=== PATIENT | female | born 1985 | race Caucasian/White ===

== ENCOUNTER 2017-01-20 17:17 | Inpatient (IN) | payer OTHER ==
--- NOTE | 2017-01-20 17:48 | HP ---
COWS - Scale Resting Pulse: 2= [place] 101-120 Sweatin=Flushed/Facial Moisture Restless Observation: 3= Extraneous Movement Pupil Size: 2= Moderately Dilated Bone or Joint Aches: 2= Severe Diffuse Aches Runny Nose/ Eye Tearin= Runny Nose/Eyes GI Upset > 30mins: 3= Vomiting/Diarrhea Tremor Observation: 2= Slight Tremor Visible Yawning Observation: 2= >3x During Session Anxiety or Irritability: 2=Irritable/Anxious Goose Flesh Skin: 0=Smooth Skin COWS Score: 22 CIWA Score - CIWA Score Nausea/Vomitin Muscle Tremors: 3 Anxiety: 3 Agitation: 3 Paroxysmal Sweats: 2 Orientation: 0-Oriented Tacttile Disturbances: 2-Mild Itch/Numbness/Burn Auditory Disturbances: 2-Mild Harshness/Frighten Visual Disturbances: 2-Mild Sensitivity Headache: 2-Mild CIWA-Ar Total Score: 22 Admission ROS S - HPI Chief Complaint: i need help to stop using heroin,lcohol,xanax,cocaine Allergies/Adverse Reactions: Allergies Allergy/AdvReac Type Severity Reaction Status Date / Time Fish Containing Products Allergy Intermediate Vomiting Verified 11/11/16 11:40 milk Allergy Intermediate Vomiting Verified 11/11/16 11:40 venom-honey bee Allergy Difficulty Verified 11/11/16 11:40 [bee venom (honey bee)] Breathing chlordiazepoxide HCl AdvReac Severe Vomiting Verified 11/11/16 11:40 [From Librium] History of Present Illness: this 31 years old female with heroin,cocaine,xanax and alcohol dependence, withdrawal symptom,last detox 11/03 [facility] seizure cva with right upper extremity weakness nicotine dependence Exam Limitations: No Limitations - Ebola screening Have you traveled outside of the country in the last 21 days: No Have you had contact with anyone from an Ebola affected area: No Do you have a fever: No - Review of Systems Constitutional: Chills, Diaphoresis, Loss of Appetite, Malaise, Night Sweats, Changes in sleep, Weakness EENT: reports: Tearing, Nose Congestion Respiratory: reports: No Symptoms reported Cardiac: reports: Palpitations GI: reports: Diarrhea, Nausea, Vomiting, Abdominal cramping : reports: No Symptoms Reported Musculoskeletal: reports: Joint Pain, Muscle Pain, Joint Stiffness Neuro: reports: Headache, Tremors Endocrine: reports: No Symptoms Reported Hematology: reports: No Symptoms Reported Psychiatric: reports: other (insomnia) Patient History - Patient Medical History Hx Anemia: No Hx Asthma: No Hx Chronic Obstructive Pulmonary Disease (COPD): No Hx Cancer: No Hx Cardiac Disorders: Yes (CARDIAC SURGERY TO FIX A MURMUR! at age of 25 years repair the valve [facility]) Hx Congestive Heart Failure: No Hx Hypertension: No Hx Hypercholesterolemia: No Hx Pacemaker: No HX Cerebrovascular Accident: Yes (STROKE X 3; RIGHT-SIDED WEAKNESS) Hx Seizures: Yes (none x2 years) Hx Dementia: No Hx Diabetes: No Hx Gastrointestinal Disorders: No Hx Liver Disease: Yes Hx Genitourinary Disorders: No Hx Sexually Transmitted Disorders: No Hx Renal Disease (ESRD): No Hx Thyroid Disease: No Hx Human Immunodeficiency Virus (HIV): No (last 2016 negative) Hx Hepatitis C: Yes (not treated) Hx Depression: No Hx Suicide Attempt: No Hx Bipolar Disorder: No Hx Schizophrenia: No Other Medical History: no suicidal,no homicidal - Patient Surgical History Past Surgical History: Yes Hx Neurologic Surgery: No Hx Cataract Extraction: No Hx Cardiac Surgery: Yes (SURGERY FOR PERICARDITIS IN 07/2013) Hx Lung Surgery: No Hx Breast Surgery: No Hx Breast Biopsy: No Hx Abdominal Surgery: Yes (EXP. LAPOROTOMY IN 07/2013 AT [facility] Hx Appendectomy: No Hx Cholecystectomy: No Hx Genitourinary Surgery: No Hx Section: No Hx Orthopedic Surgery: No Anesthesia Reaction: No - PPD History Previous Implant?: Yes Documented Results: Negative w/proof Date: 07/08/16 Results: 0 mm PPD to be Administered?: No - Reproductive History Patient is a Female of Child Bearing Age (11 -55 yrs old): Yes Last Menstrual Period: 01/15/17 Patient : No - Smoking Cessation Smoking history: Current every day smoker Have you smoked in the past 12 months: Yes Aproximately how many cigarettes per day: 6 Cigars Per Day: 0 Hx Chewing Tobacco Use: No Initiated information on smoking cessation: Yes 'Breaking Loose' booklet given: 01/20/17 - Substance & Tx. History Hx Alcohol Use: Yes Hx Substance Use: Yes Substance Use Type: Alcohol, Cocaine, Heroin, Tranquilizers Hx Substance Use Treatment: Yes ([facility] 11/03) - Substances Abused Heroin Route: Inhalation Frequency: Daily Amount used: 10 bags Age of first use: 17 Date of Last Use: 01/20/17 Alcohol Route: Oral Frequency: Daily Amount used: 3pints of vodka Age of first use: 9 Date of Last Use: 01/20/17 Alprazolam (Xanax) Route: Oral Frequency: Daily Amount used: 10 to 20 mgs Age of first use: 17 Date of Last Use: 01/20/17 Cocaine Route: Inhalation Frequency: 1-3 times last 30 days Amount used: 80$ Age of first use: 31 Date of Last Use: 01/18/17 Family Disease History - Family Disease History Family Disease History: [place]: Mother (Alcoholic; uterine/?cervical; dec), Other: Mother, Sister (LIVER DISEASE@16--) Admission Physical Exam [facility] Physical General Appearance: Yes: Moderate Distress, Tremorous, Irritable, Sweating, Anxious HEENTM: Yes: Nasal Congestion, Rhinorrhea Respiratory: Yes: Lungs Clear Neck: Yes: Within Normal Limits Breast: Yes: Breast Exam Deferred Cardiology: Yes: Tachycardia Abdominal: Yes: Within Normal Limits, Normal Bowel Sounds, Non Tender, Flat, Soft Genitourinary: Yes: Within Normal Limits Back: Yes: Muscle Spasm Musculoskeletal: Yes: Back pain, Muscle Pain Extremities: Yes: Tremors, Other (right upper extremity weakness) Neurological: Yes: advocacy director II-XII NML intact, Fully Oriented, Alert, Motor Strength 5/5 Integumentary: Yes: Dry Lymphatic: Yes: Within Normal Limits - Diagnostic (1) Alcohol dependence with uncomplicated withdrawal Current Visit: No Status: Chronic (2) Anxiety Current Visit: No Status: Chronic (3) Hemiparesis affecting right side as late effect of cerebrovascular accident Current Visit: No Status: Chronic (4) Hepatitis C Current Visit: No Status: Chronic (5) Insomnia Current Visit: No Status: Chronic (6) Nicotine dependence Current Visit: No Status: Chronic Qualifiers: Nicotine product type: cigarettes Substance use status: uncomplicated Qualified Code(s): F17.210 - Nicotine dependence, cigarettes, uncomplicated (7) Opioid dependence with withdrawal Current Visit: No Status: Chronic (8) Seizure disorder Current Visit: No Status: Suspected (9) Uncomplicated sedative, hypnotic or anxiolytic withdrawal Current Visit: Yes Status: Acute (10) Walker as ambulation aid Current Visit: Yes Status: Acute Cleared for Admission [facility] - Detox or Rehab [facility] Level of Care: Medically Managed Detox Regimen/Protocol: Methadone/Valium S Breath Alcohol Content Breath Alcohol Content: 0.010
[2017-01-20 17:49] VITALS: BMI 27.1
[2017-01-20] MEDS ORDERED: guaiFENesin/D-METHORPHAN HB 10 ML UNIT-DOSE CUPS PO PRN (18:52)
[2017-01-20] MEDS ORDERED: ACETAMINOPHEN 325 MG TABLET (FP) PO PRN (18:52)
[2017-01-20] MEDS ORDERED: MAGNESIUM CITRATE 300 ML BOTTLE PO PRN (18:52)
[2017-01-20] MEDS ORDERED: IBUPROFEN 400 MG TABLET (FP) PO PRN (18:52)
[2017-01-20] MEDS ORDERED: MAGNESIUM HYDROX 2400MG/30ML ORAL SUSPENSION 30 ML CUP PO PRN (18:52)
[2017-01-20] MEDS ORDERED: MAG HYDROX/AL HYDROX/SIMETH 30 ML UNIT-DOSE CUP PO PRN (18:52)
[2017-01-20] MEDS ORDERED: LOPERAMIDE HCL 2 MG CAPSULE PO PRN (18:52)
[2017-01-20] MEDS ORDERED: MENTHOL/PHENOL 1 EACH UD MM PRN (18:52)
[2017-01-20] MEDS ORDERED: diazePAM 5 MG TABLET PO ONE (18:52)
[2017-01-20] MEDS ORDERED: P-EPHED 60MG/TRIPROLIDI 2.5MG TABLET PO PRN (18:52)
[2017-01-20] MEDS ORDERED: METHADONE HCL 10 MG TABLET (FOR DETOX USE ONLY) PO ONE ×2 (18:52→23:00)
[2017-01-20] MEDS: NICOTINE 21 MG/24 HOURS TOPICAL PATCH TD SCH (20:02)
[2017-01-20] MEDS: THIAMINE HCL 100 MG TABLET (FP) PO SCH (22:41)
[2017-01-20] MEDS: levETIRAcetam 500 MG TABLET (FP) PO SCH (22:41)
[2017-01-20] MEDS: diphenhydrAMINE HCL 50 MG CAPSULE PO PRN (22:41)
[2017-01-20] MEDS: diazePAM 5 MG TABLET PO SCH (22:41)
[2017-01-21 00:17] LABS: URINE APPEARANCE SLCLOUDY; URINE BILIRUBIN NEGATIVE (NEGATIVE); URINE BLOOD NEGATIVE (NEGATIVE); URINE COLOR YELLOW; URINE GLUCOSE (UA) NEGATIVE (NEGATIVE); URINE KETONE 1+ (NEGATIVE); URINE LEUK ESTERASE NEGATIVE (NEGATIVE); URINE NITRITE NEGATIVE (NEGATIVE); URINE UROBILINOGEN NEGATIVE E.U./dl (0.2-1.0)
[2017-01-21 00:33] LABS: URINE PROTEIN 1+ (NEGATIVE)
[2017-01-21 01:44] LABS: URINE BACTERIA MANY /hpf (NONE SEEN); URINE HYALINE CAST 153 /lpf; URINE MUCUS MANY; URINE WBC 7 /hpf (3-5)
[2017-01-21] MEDS: diazePAM 5 MG TABLET PO PRN ×4 (02:01→16:55)
[2017-01-21] MEDS: diphenhydrAMINE HCL 50 MG CAPSULE PO PRN ×2 (02:02→22:30)
[2017-01-21] MEDS: diazePAM 5 MG TABLET PO SCH ×3 (05:44→22:30)
[2017-01-21] MEDS ORDERED: METHADONE HCL 10 MG TABLET (FOR DETOX USE ONLY) PO SCH (10:00)
[2017-01-21 10:19] LABS: MCH 29.6 pg (25.7-33.7); MCHC 33.6 g/dl (32.0-36.0); MEAN PLT VOLUME 8.3 fl (7.5-11.1); PLATELET COUNT 225 K/MM3 (134-434); RDW 14.5 % (11.6-15.6); WHITE BLOOD COUNT 6.2 K/mm3 (4.0-10.0)
[2017-01-21] MEDS: ASPIRIN COATED 81 MG TABLET.EC PO SCH (10:24)
[2017-01-21] MEDS: levETIRAcetam 500 MG TABLET (FP) PO SCH ×2 (10:24→22:30)
[2017-01-21] MEDS: PRENATAL VITAMINS W/ FOLIC ACID TABLET (FP) PO SCH (10:24)
[2017-01-21] MEDS: NICOTINE 21 MG/24 HOURS TOPICAL PATCH TD SCH (10:24)
[2017-01-21 10:48] LABS: ALBUMIN 3.6 g/dl (3.4-5.0); ALK PHOS 98 U/L (45-117); ANION GAP 12 (8-16); BILIRUBIN,TOTAL 0.5 mg/dL (0.2-1.0); CO2 28 mmol/L (21-32); CREATININE 0.9 mg/dL (0.55-1.02); GLUCOSE,RANDOM 94 mg/dL (74-106); SGOT/AST 15 U/L (15-37); SGPT/ALT 19 U/L (12-78); TOT PROT 6.8 g/dl (6.4-8.2)
--- NOTE | 2017-01-21 13:25 | PN ---
S CIWA - CIWA Score Nausea/Vomitin Muscle Tremors: 3 Anxiety: 3 Agitation: 3 Paroxysmal Sweats: 2 Orientation: 0-Oriented Tacttile Disturbances: 1-Very Mild Itch/Numbness Auditory Disturbances: 1-Very Mild Visual Disturbances: 1-Very Mild Sensitivity Headache: 2-Mild CIWA-Ar Total Score: 19 [facility] COWS - Scale Resting Pulse: 2= [place] 101-120 Sweatin=Flushed/Facial Moisture Restless Observation: 3= Extraneous Movement Pupil Size: 1= Pupils >than Normal Bone or Joint Aches: 2= Severe Diffuse Aches Runny Nose/ Eye Tearin= Runny Nose/Eyes GI Upset > 30mins: 2= Nausea/Diarrhea Tremor Observation of Outstretched Hands: 2= Slight Tremor Visible Yawning Observation: 1= 1-2x During Session Anxiety or Irritability: 2=Irritable/Anxious Goose Flesh Skin: 0=Smooth Skin COWS Score: 19 S Progress Note (SOAP) Subjective: ALERT,IRRITABLE,ANXIUOS,INTERRUPTED SLEEP,PAIN IN THE BODY AND BACK Objective: 01/21/17 13:23 Vital Signs Temperature 97.5 F L 01/21/17 09:56 Pulse Rate 103 H 01/21/17 09:56 Respiratory Rate 18 01/21/17 09:56 Blood Pressure 123/73 01/21/17 09:56 O2 Sat by Pulse Oximetry (%) EKG NSR NO CHEST PAIN,NO SOB,NO DIZZINESS Laboratory Last Values WBC 6.2 K/mm3 (4.0-10.0) 01/21/17 08:00 RBC 4.44 M/mm3 (3.60-5.2) 01/21/17 08:00 Hgb 13.1 GM/dL (10.7-15.3) 01/21/17 08:00 Hct 39.0 % (32.4-45.2) 01/21/17 08:00 MCV 88.0 fl (80-96) 01/21/17 08:00 MCHC 33.6 g/dl (32.0-36.0) 01/21/17 08:00 RDW 14.5 % (11.6-15.6) 01/21/17 08:00 Plt Count 225 K/MM3 (134-434) D 01/21/17 08:00 MPV 8.3 fl (7.5-11.1) 01/21/17 08:00 Sodium 138 mmol/L (136-145) 01/21/17 08:00 Potassium 3.7 mmol/L (3.5-5.1) 01/21/17 08:00 Chloride 98 mmol/L (98-107) 01/21/17 08:00 Carbon Dioxide 28 mmol/L (21-32) 01/21/17 08:00 Anion Gap 12 (8-16) 01/21/17 08:00 BUN 10 mg/dL (7-18) D 01/21/17 08:00 Creatinine 0.9 mg/dL (0.55-1.02) D 01/21/17 08:00 Creat Clearance w eGFR > 60 (>60) 01/21/17 08:00 Random Glucose 94 mg/dL (74-106) D 01/21/17 08:00 Calcium 9.0 mg/dL (8.5-10.1) 01/21/17 08:00 Total Bilirubin 0.5 mg/dL (0.2-1.0) D 01/21/17 08:00 AST 15 U/L (15-37) 01/21/17 08:00 ALT 19 U/L (12-78) 01/21/17 08:00 Alkaline Phosphatase 98 U/L (45-117) D 01/21/17 08:00 Total Protein 6.8 g/dl (6.4-8.2) 01/21/17 08:00 Albumin 3.6 g/dl (3.4-5.0) 01/21/17 08:00 Urine Color Yellow 01/20/17 23:58 Urine Appearance Slcloudy 01/20/17 23:58 Urine pH 5.0 (5.0-8.0) 01/20/17 23:58 Ur Specific [place] 1.030 (1.001-1.035) 01/20/17 23:58 Urine Protein 1+ (NEGATIVE) H 01/20/17 23:58 Urine Glucose (UA) Negative (NEGATIVE) 01/20/17 23:58 Urine Ketones 1+ (NEGATIVE) H 01/20/17 23:58 Urine Blood Negative (NEGATIVE) 01/20/17 23:58 Urine Nitrite Negative (NEGATIVE) 01/20/17 23:58 Urine Bilirubin Negative (NEGATIVE) 01/20/17 23:58 Urine Urobilinogen Negative E.U./dl (0.2-1.0) 01/20/17 23:58 Ur Leukocyte Esterase Negative (NEGATIVE) 01/20/17 23:58 Urine RBC None /hpf (0-3) 01/20/17 23:58 Urine WBC 7 /hpf (3-5) 01/20/17 23:58 Ur Epithelial Cells Few /hpf (FEW) 01/20/17 23:58 Urine Bacteria Many /hpf (NONE SEEN) 01/20/17 23:58 Hyaline Casts 153 /lpf 01/20/17 23:58 Urine Mucus Many 01/20/17 23:58 RPR Titer Nonreactive (NONREACTIVE) 01/21/17 08:00 Assessment: 01/21/17 13:25 WITHDRAWAL SYMPTOM Plan: CONTINUE DETOX
[2017-01-21] MEDS: THIAMINE HCL 100 MG TABLET (FP) PO SCH (22:30)
[2017-01-22] MEDS: diazePAM 5 MG TABLET PO PRN ×4 (01:45→16:54)
--- NOTE | 2017-01-22 10:09 | PN ---
[facility] CIWA - CIWA Score Nausea/Vomitin Muscle Tremors: 3 Anxiety: 3 Agitation: 3 Paroxysmal Sweats: 3 Orientation: 0-Oriented Tacttile Disturbances: 2-Mild Itch/Numbness/Burn Auditory Disturbances: 0-None Visual Disturbances: 0-None Headache: 0-None Present CIWA-Ar Total Score: 17 S COWS - Scale Resting Pulse: 2= [place] 101-120 Sweatin=Flushed/Facial Moisture Restless Observation: 1= Difficult to Sit Still Pupil Size: 1= Pupils >than Normal Bone or Joint Aches: 2= Severe Diffuse Aches Runny Nose/ Eye Tearin= Nasal Congestion GI Upset > 30mins: 2= Nausea/Diarrhea Tremor Observation of Outstretched Hands: 2= Slight Tremor Visible Yawning Observation: 0= None Anxiety or Irritability: 0= None Goose Flesh Skin: 0=Smooth Skin COWS Score: 13 [facility] Progress Note (SOAP) Subjective: interrupted sleep, sweats, shakes, nausea, Objective: 01/22/17 10:26 Vital Signs Temperature 97.2 F L 01/22/17 10:17 Pulse Rate 103 H 01/22/17 10:17 Respiratory Rate 18 01/22/17 10:17 Blood Pressure 115/81 01/22/17 10:17 O2 Sat by Pulse Oximetry (%) Laboratory Tests 01/20/17 01/21/17 01/21/17 23:58 08:00 08:00 WBC 6.2 RBC 4.44 Hgb 13.1 Hct 39.0 MCV 88.0 MCHC 33.6 RDW 14.5 Plt Count 225 D MPV 8.3 Sodium 138 Potassium 3.7 Chloride 98 Carbon Dioxide 28 Anion Gap 12 BUN 10 D Creatinine 0.9 D Creat Clearance w eGFR > 60 Random Glucose 94 D Calcium 9.0 Total Bilirubin 0.5 D AST 15 ALT 19 Alkaline Phosphatase 98 D Total Protein 6.8 Albumin 3.6 Urine Color Yellow Urine Appearance Slcloudy Urine pH 5.0 Ur Specific [place] 1.030 Urine Protein 1+ H Urine Glucose (UA) Negative Urine Ketones 1+ H Urine Blood Negative Urine Nitrite Negative Urine Bilirubin Negative Urine Urobilinogen Negative Ur Leukocyte Esterase Negative Urine RBC None Urine WBC 7 Ur Epithelial Cells Few Urine Bacteria Many Hyaline Casts 153 Urine Mucus Many RPR Titer 01/21/17 08:00 WBC RBC Hgb Hct MCV MCHC RDW Plt Count MPV Sodium Potassium Chloride Carbon Dioxide Anion Gap BUN Creatinine Creat Clearance w eGFR Random Glucose Calcium Total Bilirubin AST ALT Alkaline Phosphatase Total Protein Albumin Urine Color Urine Appearance Urine pH Ur Specific [place] Urine Protein Urine Glucose (UA) Urine Ketones Urine Blood Urine Nitrite Urine Bilirubin Urine Urobilinogen Ur Leukocyte Esterase Urine RBC Urine WBC Ur Epithelial Cells Urine Bacteria Hyaline Casts Urine Mucus RPR Titer Nonreactive pt aox3 in nad, lying in bed has a wheelchair for ambulation Assessment: 01/22/17 10:27 withdrawal sx; s h/o cva in past Plan: cont. detox increase fluids motrin prn
[2017-01-22] MEDS: ASPIRIN COATED 81 MG TABLET.EC PO SCH (10:44)
[2017-01-22] MEDS: METHADONE HCL 5 MG TABLET (FOR DETOX USE ONLY) PO SCH (10:44)
[2017-01-22] MEDS: PRENATAL VITAMINS W/ FOLIC ACID TABLET (FP) PO SCH (10:44)
[2017-01-22] MEDS: levETIRAcetam 500 MG TABLET (FP) PO SCH ×2 (10:44→22:13)
[2017-01-22] MEDS: diazePAM 5 MG TABLET PO SCH ×2 (10:44→22:11)
[2017-01-22] MEDS: NICOTINE 21 MG/24 HOURS TOPICAL PATCH TD SCH (10:45)
--- NOTE | 2017-01-22 11:31 | EKG ---
Test Reason : Blood Pressure : / mmHG Vent. Rate : 094 BPM Atrial Rate : 094 BPM P-R Int : 138 ms QRS Dur : 080 ms QT Int : 346 ms P-R-T Axes : 020 037 038 degrees QTc Int : 432 ms BASELINE ARTIFACT NORMAL SINUS RHYTHM INFERIOR INFARCT (CITED ON OR BEFORE 02-FEB-2014) ABNORMAL ECG WHEN COMPARED WITH ECG OF 02-FEB-2014 18:10, POOR DATA QUALITY IN CURRENT ECG PRECLUDES SERIAL COMPARISON Confirmed by GINA LUIS MD ([id number]) on 01/22/2017 11:30:58 AM Referred By: Confirmed By:GINA LUIS MD
--- NOTE | 2017-01-22 12:43 | CONSULT ---
[facility] Psychiatric Consult - Data Date of interview: 01/22/17 Admission source: [facility] Identifying data: This is 31 years old female with no psychiatric hospitalization historyu, umbulating with walker after CVA/STROKE ON ABOUIT 6 YEARS AGO, Intoxicated with: Opioids, Alcohol, nXanax and Nicotine Substance Abuse History: Smoking history: Current every day smoker. Have you smoked in the past 12 months: Yes. Aproximately how many cigarettes per day: 6. Cigars Per Day: 0. Hx Chewing Tobacco Use: No. Initiated information on smoking cessation: Yes. 'Breaking Loose' booklet given: 01/20/17. - Substance & Tx. History. Hx Alcohol Use: Yes. Hx Substance Use: Yes. Substance Use Type : Alcohol, Cocaine, Heroin, Tranquilizers. Hx Substance Use Treatment: Yes ( [facility] 11/03). - Substances Abused. Heroin. Route: Inhalation. Frequency: Daily. Amount used: 10 bags. Age of first use: 17. Date of Last Use: . Alcohol. Route: Oral. Frequency: Daily. Amount used: 3pints of vodka. Age of first use: 9. Date of Last Use: 01/20/17. Alprazolam (Xanax ). Route: Oral. Frequency: Daily. Amount used: 10 to 20 mgs. Age of first use: 17. Date of Last Use: 01/20/17. Cocaine. Route: Inhalation. Frequency: 1-3 times last 30 days. Amount used: 80$. Age of first use: 31. Date of Last Use: 01/18/17 Medical History: Stroke complications, HepC+, Seizure history Psychiatric History: Patient rteprots insomnia and depression, reports taking prior to admission: Seroquel 150mg pop qhs Physical/Sexual Abuse/Trauma History: Denies Additional Comment: Seroquel 150mg pop qhs Mental Status Exam - Mental Status Exam Alert and Oriented to: Person Cognitive Function: Fair Patient Appearance: Unkempt Mood: Sad Affect: Flat Patient Behavior: Sedated Speech Pattern: Delayed Voice Loudness: Mildly Soft/Quiet Thought Process: Goal Oriented Thought Disorder: Being Controlled Hallucinations: Denies Suicidal Ideation: Denies Homicidal Ideation: Denies Insight/Judgement: Fair Sleep: Difficulty falling asleep Appetite: Fair Muscle strength/Tone: Mild Hypertonicity Gait/Station: Spastic Additional Comments: Seroquel 150mg pop qhs Psychiatric Findings - Problem List ([place] 1, 2,3) (1) Uncomplicated sedative, hypnotic or anxiolytic withdrawal Current Visit: Yes Status: Acute (2) Walker as ambulation aid Current Visit: Yes Status: Acute (3) Substance induced mood disorder Current Visit: No Status: Acute (4) Alcohol dependence with uncomplicated withdrawal Current Visit: No Status: Chronic (5) Benzodiazepine dependence Current Visit: No Status: Chronic (6) Hemiparesis affecting right side as late effect of cerebrovascular accident Current Visit: No Status: Chronic (7) Nicotine dependence Current Visit: No Status: Chronic Qualifiers: Nicotine product type: cigarettes Substance use status: uncomplicated Qualified Code(s): F17.210 - Nicotine dependence, cigarettes, uncomplicated (8) Opioid dependence with withdrawal Current Visit: No Status: Chronic (9) Substance-induced anxiety disorder Current Visit: No Status: Suspected (10) Drug-induced mood disorder Current Visit: Yes Status: Acute - Initial Treatment Plan Initial Treatment Plan: Seroquel 150mg pop qhs
[2017-01-22] MEDS: NICOTINE POLACRILEX 2 MG GUM BC PRN (17:19)
[2017-01-22] MEDS ORDERED: QUEtiapine FUMARATE 50 MG TABLET PO SCH (22:00)
[2017-01-22] MEDS: THIAMINE HCL 100 MG TABLET (FP) PO SCH (22:11)
[2017-01-22] MEDS: diphenhydrAMINE HCL 50 MG CAPSULE PO PRN (22:11)
[2017-01-23] MEDS ORDERED: IBUPROFEN 400 MG TABLET (FP) PO PRN (10:11)
--- NOTE | 2017-01-23 10:13 | PN ---
[facility] Progress Note (SOAP) Subjective: back and leg pain sweats irritable agitation interrupted sleep Objective: 01/23/17 10:12 Vital Signs Temperature 97 F L 01/23/17 06:19 Pulse Rate 78 01/23/17 06:19 Respiratory Rate 18 01/23/17 06:19 Blood Pressure 136/92 01/23/17 06:19 O2 Sat by Pulse Oximetry (%) Laboratory Tests 01/20/17 01/21/17 01/21/17 23:58 08:00 08:00 WBC 6.2 RBC 4.44 Hgb 13.1 Hct 39.0 MCV 88.0 MCHC 33.6 RDW 14.5 Plt Count 225 D MPV 8.3 Sodium Potassium Chloride Carbon Dioxide Anion Gap BUN Creatinine Creat Clearance w eGFR Random Glucose Calcium Total Bilirubin AST ALT Alkaline Phosphatase Total Protein Albumin Urine Color Yellow Urine Appearance Slcloudy Urine pH 5.0 Ur Specific [place] 1.030 Urine Protein 1+ H Urine Glucose (UA) Negative Urine Ketones 1+ H Urine Blood Negative Urine Nitrite Negative Urine Bilirubin Negative Urine Urobilinogen Negative Ur Leukocyte Esterase Negative Urine RBC None Urine WBC 7 Ur Epithelial Cells Few Urine Bacteria Many Hyaline Casts 153 Urine Mucus Many RPR Titer Hepatitis C Antibody >11.0 H 01/21/17 01/21/17 08:00 08:00 WBC RBC Hgb Hct MCV MCHC RDW Plt Count MPV Sodium 138 Potassium 3.7 Chloride 98 Carbon Dioxide 28 Anion Gap 12 BUN 10 D Creatinine 0.9 D Creat Clearance w eGFR > 60 Random Glucose 94 D Calcium 9.0 Total Bilirubin 0.5 D AST 15 ALT 19 Alkaline Phosphatase 98 D Total Protein 6.8 Albumin 3.6 Urine Color Urine Appearance Urine pH Ur Specific [place] Urine Protein Urine Glucose (UA) Urine Ketones Urine Blood Urine Nitrite Urine Bilirubin Urine Urobilinogen Ur Leukocyte Esterase Urine RBC Urine WBC Ur Epithelial Cells Urine Bacteria Hyaline Casts Urine Mucus RPR Titer Nonreactive Hepatitis C Antibody awake/alert ambulating no acute distress Assessment: 01/23/17 10:12 withdrawal sx Plan: continue detox increase fluids lidocaine patches ordered motrin 800mg tid prn
[2017-01-23] MEDS: ASPIRIN COATED 81 MG TABLET.EC PO SCH (10:17)
[2017-01-23] MEDS: NICOTINE 21 MG/24 HOURS TOPICAL PATCH TD SCH (10:17)
[2017-01-23] MEDS: diazePAM 5 MG TABLET PO SCH ×2 (10:17→22:41)
[2017-01-23] MEDS: levETIRAcetam 500 MG TABLET (FP) PO SCH ×2 (10:17→22:40)
[2017-01-23] MEDS: METHADONE HCL 5 MG TABLET (FOR DETOX USE ONLY) PO SCH (10:17)
[2017-01-23] MEDS: PRENATAL VITAMINS W/ FOLIC ACID TABLET (FP) PO SCH (10:17)
[2017-01-23] MEDS: LIDOCAINE 5% TOPICAL PATCH TP SCH (11:35)
[2017-01-23] MEDS: NICOTINE POLACRILEX 2 MG GUM BC PRN (11:36)
--- NOTE | 2017-01-23 17:08 | PN ---
[facility] Progress Note Note: Psychiatry Attending's note (follow up) : Endorsement from ASHUTOSH Raya : Titration of seroquel dose as suggested by Dr Johnson. Progress notes are reviewed.Patient is already known to me. Patient seen at bedside.Brief interview.Content as follows : Ms Hansen reports no beneficial effects at 150 mg/hs. Feels anxious,dysphoric and irritable.Needs more seroquel. Patient is alert and fully oriented.Steady gait (observed ambulating). Intervention : . seroquel 200 mg po hs + 50 mg po daily. . seroquel 150 mg po hs is discontinued. Discussed with the patient in the presence of ASHUTOSH Andres. Patient is in agreement with this careplan (made aware of side effects/benefits) . Orders entered.
[2017-01-23] MEDS: diazePAM 5 MG TABLET PO PRN (17:55)
[2017-01-23] MEDS: THIAMINE HCL 100 MG TABLET (FP) PO SCH (22:40)
[2017-01-23] MEDS: QUEtiapine FUMARATE 200 MG TABLET PO SCH (22:41)
[2017-01-24] MEDS ORDERED: diazePAM 5 MG TABLET PO SCH (10:00)
[2017-01-24] MEDS ORDERED: METHADONE HCL 10 MG TABLET (FOR DETOX USE ONLY) PO SCH (10:00)
[2017-01-24] MEDS: levETIRAcetam 500 MG TABLET (FP) PO SCH ×2 (10:33→22:33)
[2017-01-24] MEDS: ASPIRIN COATED 81 MG TABLET.EC PO SCH (10:33)
[2017-01-24] MEDS: PRENATAL VITAMINS W/ FOLIC ACID TABLET (FP) PO SCH (10:34)
[2017-01-24] MEDS: QUEtiapine FUMARATE 50 MG TABLET PO SCH (10:34)
[2017-01-24] MEDS: NICOTINE 21 MG/24 HOURS TOPICAL PATCH TD SCH (10:35)
[2017-01-24] MEDS: LIDOCAINE 5% TOPICAL PATCH TP SCH (10:35)
[2017-01-24] MEDS ORDERED: CYCLOBENZAPRINE HCL 10 MG TABLET (FP) PO PRN (11:38)
--- NOTE | 2017-01-24 11:46 | PN ---
[facility] Progress Note (SOAP) Subjective: sweats, tired, left leg pain cramps, Objective: 01/24/17 11:40 Vital Signs Temperature 96.8 F L 01/24/17 10:18 Pulse Rate 121 H 01/24/17 10:18 Respiratory Rate 18 01/24/17 10:18 Blood Pressure 97/68 01/24/17 10:18 O2 Sat by Pulse Oximetry (%) Laboratory Tests 01/20/17 01/21/17 01/21/17 23:58 08:00 08:00 WBC 6.2 RBC 4.44 Hgb 13.1 Hct 39.0 MCV 88.0 MCHC 33.6 RDW 14.5 Plt Count 225 D MPV 8.3 Sodium Potassium Chloride Carbon Dioxide Anion Gap BUN Creatinine Creat Clearance w eGFR Random Glucose Calcium Total Bilirubin AST ALT Alkaline Phosphatase Total Protein Albumin Urine Color Yellow Urine Appearance Slcloudy Urine pH 5.0 Ur Specific [place] 1.030 Urine Protein 1+ H Urine Glucose (UA) Negative Urine Ketones 1+ H Urine Blood Negative Urine Nitrite Negative Urine Bilirubin Negative Urine Urobilinogen Negative Ur Leukocyte Esterase Negative Urine RBC None Urine WBC 7 Ur Epithelial Cells Few Urine Bacteria Many Hyaline Casts 153 Urine Mucus Many RPR Titer Hepatitis C Antibody >11.0 H 01/21/17 01/21/17 08:00 08:00 WBC RBC Hgb Hct MCV MCHC RDW Plt Count MPV Sodium 138 Potassium 3.7 Chloride 98 Carbon Dioxide 28 Anion Gap 12 BUN 10 D Creatinine 0.9 D Creat Clearance w eGFR > 60 Random Glucose 94 D Calcium 9.0 Total Bilirubin 0.5 D AST 15 ALT 19 Alkaline Phosphatase 98 D Total Protein 6.8 Albumin 3.6 Urine Color Urine Appearance Urine pH Ur Specific [place] Urine Protein Urine Glucose (UA) Urine Ketones Urine Blood Urine Nitrite Urine Bilirubin Urine Urobilinogen Ur Leukocyte Esterase Urine RBC Urine WBC Ur Epithelial Cells Urine Bacteria Hyaline Casts Urine Mucus RPR Titer Nonreactive Hepatitis C Antibody pt aox3 lying in bed Assessment: 01/24/17 11:46 withdrawal sx's Plan: cont. detox increase fluids flexeril prn d/c in am
[2017-01-24] MEDS: hydrOXYzine PAMOATE 25 MG CAPSULE (FP) PO PRN ×2 (17:20→22:34)
[2017-01-24] MEDS: THIAMINE HCL 100 MG TABLET (FP) PO SCH (22:33)
[2017-01-24] MEDS: QUEtiapine FUMARATE 200 MG TABLET PO SCH (22:33)
[2017-01-24] MEDS: NICOTINE POLACRILEX 2 MG GUM BC PRN (22:35)
[2017-01-25] MEDS ORDERED: METHADONE HCL 5 MG TABLET (FOR DETOX USE ONLY) PO SCH (06:00)
--- NOTE | 2017-01-25 08:43 | DS ---
[facility] Detox Discharge Summary Admission Date: 01/20/17 Discharge Date: 01/25/17 - History Present History: Alcohol Dependence, Opioid Dependence, Sedative Dependence - Physical Exam Results Vital Signs: Vital Signs Temperature 97.5 F L 01/25/17 07:28 Pulse Rate 91 H 01/25/17 07:28 Respiratory Rate 20 01/25/17 07:28 Blood Pressure 98/65 01/25/17 07:28 O2 Sat by Pulse Oximetry (%) - Treatment Hospital Course: Detox Protocol Followed, Detoxed Safely, Responded well, Discharged Condition Good, Rehab Referral Accepted - Medication Discharge Medications: Ambulatory Orders Aspirin [Aspirin EC] 81 mg PO DAILY 04/28/14 Levetiracetam [Keppra -] 1,000 mg PO BID 09/03/16 Quetiapine Fumarate [Seroquel -] 150 mg PO HS #60 tablet 01/22/17 - Diagnosis (1) Drug-induced mood disorder Current Visit: Yes Status: Acute (2) Uncomplicated sedative, hypnotic or anxiolytic withdrawal Current Visit: Yes Status: Chronic (3) Walker as ambulation aid Current Visit: Yes Status: Chronic (4) Substance induced mood disorder Current Visit: No Status: Acute (5) Alcohol dependence with uncomplicated withdrawal Current Visit: Yes Status: Chronic (6) Anxiety Current Visit: No Status: Chronic (7) Benzodiazepine dependence Current Visit: Yes Status: Chronic (8) Hemiparesis affecting right side as late effect of cerebrovascular accident Current Visit: No Status: Chronic (9) Hepatitis C Current Visit: No Status: Chronic Qualifiers: Viral hepatitis chronicity: chronic Hepatic coma status: without hepatic coma Qualified Code(s): B18.2 - Chronic viral hepatitis C (10) Insomnia Current Visit: No Status: Chronic (11) Nicotine dependence Current Visit: Yes Status: Chronic Qualifiers: Nicotine product type: cigarettes Substance use status: uncomplicated Qualified Code(s): F17.210 - Nicotine dependence, cigarettes, uncomplicated (12) Opioid dependence with withdrawal Current Visit: Yes Status: Chronic (13) Seizure disorder Current Visit: No Status: Suspected (14) Substance-induced anxiety disorder Current Visit: No Status: Suspected - AMA Did Patient Leave Against Medical Advice: No
[2017-01-25 09:50] VITALS: BP 134/71; PULSE 118; TEMP 97
[2017-01-25] MEDS: levETIRAcetam 500 MG TABLET (FP) PO SCH (10:12)
[2017-01-25] MEDS: ASPIRIN COATED 81 MG TABLET.EC PO SCH (10:12)
[2017-01-25] MEDS: QUEtiapine FUMARATE 50 MG TABLET PO SCH (10:12)
[2017-01-25] MEDS: PRENATAL VITAMINS W/ FOLIC ACID TABLET (FP) PO SCH (10:12)
[2017-01-25 14:18] LABS: HCV LOG 10 6.907 (.)
== END 2017-01-25 11:00 | disposition home or self-care (01) | DRG 773 ==
LOC: YASAS 17:17 → Y6N 17:20
PROVIDERS: ADMIT Internal Medicine; ATTEND Internal Medicine Addiction Medicine
PROC: HZ2ZZZZ Detoxification Services for Substance Abuse Treatment (ICD-10-PCS; principal; 2017-01-25)
DX: F11.23 Opioid dependence with withdrawal (principal); F13.230 Sedative, hypnotic or anxiolytic dependence with withdrawal, uncomplicated; F10.230 Alcohol dependence with withdrawal, uncomplicated; F19.24 Other psychoactive substance dependence with psychoactive substance-induced mood disorder; F19.280 Other psychoactive substance dependence with psychoactive substance-induced anxiety disorder; F41.9 Anxiety disorder, unspecified; G47.00 Insomnia, unspecified; G40.909 Epilepsy, unspecified, not intractable, without status epilepticus; B18.2 Chronic viral hepatitis C; I69.851 Hemiplegia and hemiparesis following other cerebrovascular disease affecting right dominant side; R26.2 Difficulty in walking, not elsewhere classified
CPT/HCPCS: 36415; 80053; 81003; 81015; 85027; 86593; 87522; 93005; 93010

== ENCOUNTER 2017-03-08 12:02 | Inpatient (IN) | payer OTHER ==
[2017-03-08 13:45] VITALS: BMI 27.8
--- NOTE | 2017-03-08 16:03 | HP ---
COWS - Scale Resting Pulse: 1= [place] 81-100 Sweatin= Chills/Flushing Restless Observation: 1= Difficult to Sit Still Pupil Size: 1= Pupils >than Normal Bone or Joint Aches: 2= Severe Diffuse Aches Runny Nose/ Eye Tearin= Nasal Congestion GI Upset > 30mins: 1= Stomach Cramp Tremor Observation: 1= Tremor Barre, Not Seen Yawning Observation: 0= None Anxiety or Irritability: 2=Irritable/Anxious Goose Flesh Skin: 0=Smooth Skin COWS Score: 11 CIWA Score - CIWA Score Nausea/Vomitin Muscle Tremors: 2 Anxiety: 3 Agitation: 2 Paroxysmal Sweats: 3 Orientation: 0-Oriented Tacttile Disturbances: 2-Mild Itch/Numbness/Burn Auditory Disturbances: 0-None Visual Disturbances: 0-None Headache: 1-Very Mild CIWA-Ar Total Score: 16 Admission ROS BHS - HPI Chief Complaint: I need help to stop using drugs and alcohol Allergies/Adverse Reactions: Allergies Allergy/AdvReac Type Severity Reaction Status Date / Time Fish Containing Products Allergy Intermediate Vomiting Verified 01/20/17 19:30 milk Allergy Intermediate Vomiting Verified 01/20/17 19:30 venom-honey bee Allergy Difficulty Verified 01/20/17 19:30 [bee venom (honey bee)] Breathing chlordiazepoxide HCl AdvReac Severe Vomiting Verified 01/20/17 19:30 [From Librium] History of Present Illness: 32 y/o f pt with a h/o chronic alcoholism , heroin dep and xanax dep seeking detox. Exam Limitations: No Limitations - Ebola screening Have you traveled outside of the country in the last 21 days: No Have you had contact with anyone from an Ebola affected area: No Have you been sick,other than usual withdrawal symptoms: No - Review of Systems Constitutional: Malaise, Night Sweats, Changes in sleep EENT: reports: Nose Congestion Respiratory: reports: No Symptoms reported Cardiac: reports: No Symptoms Reported GI: reports: Abdominal cramping : reports: No Symptoms Reported Musculoskeletal: reports: Joint Pain, Muscle Pain (left leg pains x 6 months) Integumentary: reports: No Symptoms Reported Neuro: reports: Headache Endocrine: reports: No Symptoms Reported Hematology: reports: No Symptoms Reported Psychiatric: reports: Agitated, Anxious Other Systems: Reviewed and Negative Patient History - Patient Medical History Hx Anemia: No Hx Asthma: Yes Hx Chronic Obstructive Pulmonary Disease (COPD): No Hx Cancer: No Hx Cardiac Disorders: No Hx Congestive Heart Failure: No Hx Hypertension: No Hx Hypercholesterolemia: No Hx Pacemaker: No HX Cerebrovascular Accident: Yes (STROKE X 3; RIGHT-SIDED WEAKNESS) Hx Seizures: Yes (HAD SEIZURES 2 YEARS AGO) Hx Dementia: No Hx Diabetes: No Hx Gastrointestinal Disorders: No Hx Liver Disease: Yes Hx Genitourinary Disorders: No Hx Sexually Transmitted Disorders: No Hx Renal Disease (ESRD): No Hx Thyroid Disease: No Hx Human Immunodeficiency Virus (HIV): No (last 2016 negative) Hx Hepatitis C: Yes (not treated) Hx Depression: Yes Hx Suicide Attempt: No Hx Bipolar Disorder: No Hx Schizophrenia: No - Patient Surgical History Past Surgical History: Yes Hx Neurologic Surgery: No Hx Cataract Extraction: No Hx Cardiac Surgery: Yes (SURGERY FOR PERICARDITIS IN 07/2013) Hx Lung Surgery: No Hx Breast Surgery: No Hx Breast Biopsy: No Hx Abdominal Surgery: Yes (EXP. LAPOROTOMY IN 07/2013 AT [facility] Hx Appendectomy: No Hx Cholecystectomy: No Hx Genitourinary Surgery: No Hx Section: No Hx Orthopedic Surgery: No Anesthesia Reaction: No - PPD History Date: 07/08/16 Results: 0 mm PPD to be Administered?: No - Reproductive History Last Menstrual Period: 03/07/17 Patient : No - Smoking Cessation Smoking history: Current every day smoker Have you smoked in the past 12 months: Yes Aproximately how many cigarettes per day: 10 Cigars Per Day: 0 Hx Chewing Tobacco Use: No Initiated information on smoking cessation: Yes 'Breaking Loose' booklet given: 03/08/17 - Substance & Tx. History Hx Alcohol Use: Yes Hx Substance Use: Yes Substance Use Type: Alcohol, Heroin, Tranquilizers Hx Substance Use Treatment: Yes - Substances Abused Alcohol Route: Oral Frequency: Daily Amount used: vodka 1 qt/d Age of first use: 1 Date of Last Use: 03/08/17 Benzodiazepine (xanax) Route: Oral Frequency: Daily Amount used: 10mg/d Age of first use: 17 Date of Last Use: 03/08/17 Heroin Route: Injection Frequency: Daily Amount used: 10-15 bags /d Age of first use: 23 Date of Last Use: 03/08/17 Family Disease History - Family Disease History Family Disease History: [place]: Mother (Alcoholic; uterine/?cervical; dec), Other: Mother, Sister (LIVER DISEASE@16--) Admission Physical Exam [facility] - Vital Signs Vital Signs: Vital Signs - 24 hr 03/08/17 13:43 Temperature 96.0 F L Pulse Rate 105 H Respiratory 18 Rate Blood Pressure 118/76 32 y/o f pt [place] , aox3 with left sided alem in nad cooperative with exam. - Physical General Appearance: Yes: No Apparent Distress, Nourished, Appropriately Dressed , Obese HEENTM: Yes: EOMI, Hearing grossly Normal, Normocephalic, Normal Voice, SRINIVASA, [place] (rt facial piercing) Respiratory: Yes: Chest Non-Tender, Lungs Clear, Normal Breath Sounds, No Respiratory Distress Neck: Yes: Supple, Trachea in good position Breast: Yes: Breast Exam Deferred Cardiology: Yes: Regular Rhythm, S1, S2, Tachycardia Abdominal: Yes: Non Tender, Flat, Soft, Increased Bowel Sounds Genitourinary: Yes: Within Normal Limits Back: Yes: Decreased Range of Motion Musculoskeletal: Yes: Muscle Pain (left leg pains) Extremities: Yes: Other (rt upper extremity weakness,) Neurological: Yes: Fully Oriented, Alert, Facial Droop (on rt), Other (rt upper ext weakness > rt lower ext weakness) Integumentary: Yes: Moist, Track [place], Other (tear tattoo left cheek) Lymphatic: Yes: Within Normal Limits - Diagnostic (1) Alcohol dependence with uncomplicated withdrawal Current Visit: Yes Status: Chronic (2) Anxiety Current Visit: Yes Status: Chronic (3) Benzodiazepine dependence Current Visit: Yes Status: Chronic (4) Hemiparesis affecting right side as late effect of cerebrovascular accident Current Visit: Yes Status: Chronic (5) Hepatitis C Current Visit: Yes Status: Chronic Qualifiers: Viral hepatitis chronicity: chronic Hepatic coma status: without hepatic coma Qualified Code(s): B18.2 - Chronic viral hepatitis C (6) Nicotine dependence Current Visit: Yes Status: Chronic Qualifiers: Nicotine product type: cigarettes Substance use status: uncomplicated Qualified Code(s): F17.210 - Nicotine dependence, cigarettes, uncomplicated (7) Opioid dependence with withdrawal Current Visit: Yes Status: Chronic (8) Uncomplicated sedative, hypnotic or anxiolytic withdrawal Current Visit: Yes Status: Chronic (9) Seizure disorder Current Visit: Yes Status: Chronic Cleared for Admission [facility] - Detox or Rehab [facility] Level of Care: Medically Managed Detox Regimen/Protocol: Methadone/Valium [facility] Breath Alcohol Content Breath Alcohol Content: 0 Urine Pregancy Test - Result Urine Test Results: Negative- NO Line Present Urine Drug Screen - Results Drug Screen Negative: No Urine Drug Screen Results: OPI-Opiates, MET-Methamphetamine, BZO-Benzodiazepines , MTD-Methadone, TCA-Tricyclic Antidepress
[2017-03-08] MEDS ORDERED: ACETAMINOPHEN 325 MG TABLET (FP) PO PRN (16:21)
[2017-03-08] MEDS ORDERED: guaiFENesin/D-METHORPHAN HB 10 ML UNIT-DOSE CUPS PO PRN (16:21)
[2017-03-08] MEDS ORDERED: LOPERAMIDE HCL 2 MG CAPSULE PO PRN (16:21)
[2017-03-08] MEDS ORDERED: hydrOXYzine PAMOATE 25 MG CAPSULE (FP) PO PRN (16:21)
[2017-03-08] MEDS ORDERED: MAG HYDROX/AL HYDROX/SIMETH 30 ML UNIT-DOSE CUP PO PRN (16:21)
[2017-03-08] MEDS ORDERED: P-EPHED 60MG/TRIPROLIDI 2.5MG TABLET PO PRN (16:21)
[2017-03-08] MEDS ORDERED: IBUPROFEN 400 MG TABLET (FP) PO PRN (16:21)
[2017-03-08] MEDS ORDERED: diphenhydrAMINE HCL 50 MG CAPSULE PO PRN (16:21)
[2017-03-08] MEDS ORDERED: MENTHOL/PHENOL 1 EACH UD MM PRN (16:21)
[2017-03-08] MEDS ORDERED: MAGNESIUM CITRATE 300 ML BOTTLE PO PRN (16:21)
[2017-03-08] MEDS ORDERED: MAGNESIUM HYDROX 2400MG/30ML ORAL SUSPENSION 30 ML CUP PO PRN (16:21)
[2017-03-08] MEDS ORDERED: diazePAM 5 MG TABLET PO ONE (16:45)
[2017-03-08] MEDS ORDERED: METHADONE HCL 10 MG TABLET (FOR DETOX USE ONLY) PO ONE ×2 (16:45→23:00)
[2017-03-08 20:01] LABS: URINE APPEARANCE SLCLOUDY; URINE BILIRUBIN NEGATIVE (NEGATIVE); URINE BLOOD NEGATIVE (NEGATIVE); URINE COLOR YELLOW; URINE GLUCOSE (UA) NEGATIVE (NEGATIVE); URINE KETONE NEGATIVE (NEGATIVE); URINE LEUK ESTERASE NEGATIVE (NEGATIVE); URINE NITRITE NEGATIVE (NEGATIVE); URINE PROTEIN NEGATIVE (NEGATIVE); URINE UROBILINOGEN 2.0 E.U/dl E.U./dl (0.2-1.0)
[2017-03-08] MEDS: diazePAM 5 MG TABLET PO SCH (22:47)
[2017-03-08] MEDS: levETIRAcetam 500 MG TABLET (FP) PO SCH (22:47)
[2017-03-08] MEDS: THIAMINE HCL 100 MG TABLET (FP) PO SCH (22:47)
[2017-03-09] MEDS: diazePAM 5 MG TABLET PO PRN ×4 (04:15→17:00)
[2017-03-09] MEDS: diazePAM 5 MG TABLET PO SCH ×3 (05:52→22:52)
[2017-03-09] MEDS ORDERED: METHADONE HCL 10 MG TABLET (FOR DETOX USE ONLY) PO SCH (10:00)
[2017-03-09] MEDS ORDERED: LIDOCAINE 5% TOPICAL PATCH TP ONE (10:32)
[2017-03-09] MEDS: levETIRAcetam 500 MG TABLET (FP) PO SCH ×2 (10:55→22:52)
[2017-03-09] MEDS: PRENATAL VITAMINS W/ FOLIC ACID TABLET (FP) PO SCH (10:55)
[2017-03-09] MEDS: ASPIRIN COATED 81 MG TABLET.EC PO SCH (10:55)
[2017-03-09] MEDS: NICOTINE 21 MG/24 HOURS TOPICAL PATCH TD SCH (10:56)
--- NOTE | 2017-03-09 11:26 | EKG ---
Test Reason : Blood Pressure : / mmHG Vent. Rate : 079 BPM Atrial Rate : 079 BPM P-R Int : 154 ms QRS Dur : 084 ms QT Int : 400 ms P-R-T Axes : 054 012 052 degrees QTc Int : 458 ms NORMAL SINUS RHYTHM LOW VOLTAGE QRS NONSPECIFIC ST ABNORMALITY Confirmed by JACKIE BLUM MD ([id number]) on 03/09/2017 11:26:01 AM Referred By: Confirmed By:JACKIE BLUM MD
[2017-03-09 11:33] LABS: MCH 29.2 pg (25.7-33.7); MEAN CELL VOLUME 88.4 fl (80-96); MEAN PLT VOLUME 8.4 fl (7.5-11.1); PLATELET COUNT 264 K/MM3 (134-434); RDW 15.6 % (11.6-15.6); WHITE BLOOD COUNT 4.5 K/mm3 (4.0-10.0)
[2017-03-09 11:50] LABS: ALBUMIN 3.2 g/dl (3.4-5.0); ALK PHOS 69 U/L (45-117); ANION GAP 9 (8-16); BILIRUBIN,TOTAL 0.3 mg/dL (0.2-1.0); CALCIUM 9.2 mg/dL (8.5-10.1); CO2 28 mmol/L (21-32); CREATININE 0.7 mg/dL (0.55-1.02); GLUCOSE,RANDOM 111 mg/dL (74-106); SGOT/AST 12 U/L (15-37); SGPT/ALT 27 U/L (12-78); TOT PROT 6.1 g/dl (6.4-8.2)
--- NOTE | 2017-03-09 12:46 | CONSULT ---
[facility] Psychiatric Consult - Data Date of interview: 03/09/17 Admission source: [facility] Identifying data: Another admission to [facility] for this 32 y/o female seeking detox treatment on for opioid,alcohol and benzodiazepine dependence.Patient is ,a mother of two,domiciled,disabled and supported on SSI benefits. Substance Abuse History: - Smoking Cessation. Smoking history: Current every day smoker. Have you smoked in the past 12 months: Yes. Aproximately how many cigarettes per day: 10. Cigars Per Day: 0. Hx Chewing Tobacco Use: No. Initiated information on smoking cessation: Yes. 'Breaking Loose' booklet given : 03/08/17. - Substance & Tx. History. Hx Alcohol Use: Yes. Hx Substance Use : Yes. Substance Use Type: Alcohol, Heroin, Tranquilizers. Hx Substance Use Treatment: Yes. - Substances Abused. Alcohol. Route: Oral. Frequency: Daily. Amount used: vodka 1 qt/d. Age of first use: 1. Date of Last Use: . Benzodiazepine (xanax). Route: Oral. Frequency: Daily. Amount used : 10mg/d. Age of first use: 17. Date of Last Use: 03/08/17. Heroin. Route : Injection. Frequency: Daily. Amount used: 10-15 bags /d. Age of first use: 23. Date of Last Use: 03/08/17. Confirmed by patient. Medical History: History of seizure disorder (post-stroke),three cerebrovascular accidents (CVA),hepatitis C,past surgery for pericarditis and exploratory laparotomy (at [facility] in 2012).No changes in medical profile. Psychiatric History: No history of psychiatric hospitalizations.Patient reports that she is prescribed seroquel for " anxiety and insomnia " by her primary care doctor.No regular psychiatric OPD care.Ms Hansen remains refractory to the idea of follow up with an outpatient psychiatrist.She favors the option of frequent admissions to detox units for refills.Patient denies history of suicide attempts. Physical/Sexual Abuse/Trauma History: No reported history of sexual abuse. Additional Comment: Urine Drug Screen Results: OPI-Opiates, MET-Methamphetamine , BZO-Benzodiazepines, MTD-Methadone, TCA-Tricyclic Antidepressant.Noted. Mental Status Exam - Mental Status Exam Alert and Oriented to: Time (moves around with a walker due to past stroke), Place, Person Cognitive Function: Good Patient Appearance: Well Groomed (short,overweight) Mood: Anxious, Apprehensive Affect: Mood Congruent Patient Behavior: Appropriate, Cooperative Speech Pattern: Clear Voice Loudness: Normal Thought Process: Goal Oriented Thought Disorder: Not Present Hallucinations: Denies Suicidal Ideation: Denies Homicidal Ideation: Denies Insight/Judgement: Poor Sleep: Poorly, Difficulty falling asleep Appetite: Good Muscle strength/Tone: Normal Gait/Station: Other (moves with an unsteady gait due to past stroke) Psychiatric Findings - Problem List ([place] 1, 2,3) (1) Alcohol dependence with uncomplicated withdrawal Current Visit: Yes Status: Acute (2) Opioid dependence with withdrawal Current Visit: Yes Status: Acute (3) Benzodiazepine dependence Current Visit: Yes Status: Acute (4) Uncomplicated sedative, hypnotic or anxiolytic withdrawal Current Visit: Yes Status: Acute (5) Nicotine dependence Current Visit: Yes Status: Acute Qualifiers: Nicotine product type: cigarettes Substance use status: uncomplicated Qualified Code(s): F17.210 - Nicotine dependence, cigarettes, uncomplicated (6) Amphetamine abuse Current Visit: Yes Status: Acute (7) Substance induced mood disorder Current Visit: Yes Status: Acute (8) Hemiparesis affecting right side as late effect of cerebrovascular accident Current Visit: Yes Status: Chronic (9) Hepatitis C Current Visit: Yes Status: Chronic Qualifiers: Viral hepatitis chronicity: chronic Hepatic coma status: without hepatic coma Qualified Code(s): B18.2 - Chronic viral hepatitis C (10) Seizure disorder Current Visit: Yes Status: Chronic (11) Insomnia Current Visit: Yes Status: Acute (12) Walker as ambulation aid Current Visit: Yes Status: Chronic - Initial Treatment Plan Initial Treatment Plan: Psychoeducation.Detoxification in progress.Medications : seroquel 50 mg po daily + 150 mg po hs.To be titrated to 200 mg at bedtime if no oversedation on 03/10/17.Patient is made aware of that strategy.Side effects/ benefits discussed with patient.Agreement (verbal) secured from patient.Observation.
[2017-03-09] MEDS ORDERED: ONDANSETRON *ODT* 4 MG TABLET SL PRN (13:46)
--- NOTE | 2017-03-09 13:49 | PN ---
[facility] CIWA - CIWA Score Nausea/Vomitin-Int. Nausea w/Dry Heave Muscle Tremors: 4-Moderate,w/Arms Extend Anxiety: 3 Agitation: 2 Paroxysmal Sweats: 3 Orientation: 0-Oriented Tacttile Disturbances: 2-Mild Itch/Numbness/Burn Auditory Disturbances: 0-None Visual Disturbances: 3-Moderate Sensitivity Headache: 3-Moderate CIWA-Ar Total Score: 24 BHS COWS - Scale Resting Pulse: 1= ME 81-100 Sweatin= Chills/Flushing Restless Observation: 0= Sits Still Pupil Size: 0= Normal to Room Light Bone or Joint Aches: 2= Severe Diffuse Aches Runny Nose/ Eye Tearin= Runny Nose/Eyes GI Upset > 30mins: 2= Nausea/Diarrhea Tremor Observation of Outstretched Hands: 2= Slight Tremor Visible Yawning Observation: 1= 1-2x During Session Anxiety or Irritability: 2=Irritable/Anxious Goose Flesh Skin: 3=Piloerection COWS Score: 16 S Progress Note (SOAP) Subjective: Nausea, H/A, Interrupted Sleep, Body Aches, Sweating. Objective: PT. A & O X 3, OBSERVED AMBULATING ON UNIT. 03/09/17 13:48 Vital Signs Temperature 97.9 F 03/09/17 12:03 Pulse Rate 98 H 03/09/17 12:03 Respiratory Rate 20 03/09/17 12:03 Blood Pressure 126/67 03/09/17 12:03 O2 Sat by Pulse Oximetry (%) Laboratory Last Values WBC 4.5 K/mm3 (4.0-10.0) 03/09/17 07:00 RBC 4.15 M/mm3 (3.60-5.2) 03/09/17 07:00 Hgb 12.1 GM/dL (10.7-15.3) 03/09/17 07:00 Hct 36.7 % (32.4-45.2) 03/09/17 07:00 MCV 88.4 fl (80-96) 03/09/17 07:00 MCHC 33.0 g/dl (32.0-36.0) 03/09/17 07:00 RDW 15.6 % (11.6-15.6) 03/09/17 07:00 Plt Count 264 K/MM3 (134-434) 03/09/17 07:00 MPV 8.4 fl (7.5-11.1) 03/09/17 07:00 Sodium 142 mmol/L (136-145) 03/09/17 07:00 Potassium 4.5 mmol/L (3.5-5.1) D 03/09/17 07:00 Chloride 105 mmol/L (98-107) 03/09/17 07:00 Carbon Dioxide 28 mmol/L (21-32) 03/09/17 07:00 Anion Gap 9 (8-16) 03/09/17 07:00 BUN 10 mg/dL (7-18) 03/09/17 07:00 Creatinine 0.7 mg/dL (0.55-1.02) D 03/09/17 07:00 Creat Clearance w eGFR > 60 (>60) 03/09/17 07:00 Random Glucose 111 mg/dL (74-106) H 03/09/17 07:00 Calcium 9.2 mg/dL (8.5-10.1) 03/09/17 07:00 Total Bilirubin 0.3 mg/dL (0.2-1.0) D 03/09/17 07:00 AST 12 U/L (15-37) L 03/09/17 07:00 ALT 27 U/L (12-78) D 03/09/17 07:00 Alkaline Phosphatase 69 U/L (45-117) D 03/09/17 07:00 Total Protein 6.1 g/dl (6.4-8.2) L 03/09/17 07:00 Albumin 3.2 g/dl (3.4-5.0) L 03/09/17 07:00 Urine Color Yellow 03/08/17 19:30 Urine Appearance Slcloudy 03/08/17 19:30 Urine pH 7.0 (5.0-8.0) D 03/08/17 19:30 Ur Specific [place] 1.026 (1.001-1.035) 03/08/17 19:30 Urine Protein Negative (NEGATIVE) 03/08/17 19:30 Urine Glucose (UA) Negative (NEGATIVE) 03/08/17 19:30 Urine Ketones Negative (NEGATIVE) 03/08/17 19:30 Urine Blood Negative (NEGATIVE) 03/08/17 19:30 Urine Nitrite Negative (NEGATIVE) 03/08/17 19:30 Urine Bilirubin Negative (NEGATIVE) 03/08/17 19:30 Urine Urobilinogen 2.0 e.u/dl E.U./dl (0.2-1.0) H 03/08/17 19:30 Ur Leukocyte Esterase Negative (NEGATIVE) 03/08/17 19:30 RPR Titer Nonreactive (NONREACTIVE) 03/09/17 07:00 LABS NOTED. Assessment: 03/09/17 13:48 WITHDRAWAL SYMPTOMS. Plan: CONTINUE DETOX. PRN ZOFRAN FOR NAUSEA. ADVISED PATIENT TO FOLLOW-UP WITH [facility] / REHAB MEDICAL PROVIDER AFTER DISCHARGE FROM DETOX FOR GENERAL MEDICAL ASSESSMENT AND FOR ABNORMAL ADMISSION LAB VALUES.
[2017-03-09] MEDS: THIAMINE HCL 100 MG TABLET (FP) PO SCH (22:52)
[2017-03-09] MEDS: QUEtiapine FUMARATE 50 MG TABLET PO SCH (22:52)
[2017-03-09] MEDS: NICOTINE POLACRILEX 4 MG GUM BC PRN (22:55)
[2017-03-10] MEDS: diazePAM 5 MG TABLET PO PRN ×3 (06:20→19:53)
[2017-03-10] MEDS: NICOTINE 21 MG/24 HOURS TOPICAL PATCH TD SCH (10:49)
[2017-03-10] MEDS: diazePAM 5 MG TABLET PO SCH ×2 (10:49→22:56)
[2017-03-10] MEDS: levETIRAcetam 500 MG TABLET (FP) PO SCH ×2 (10:49→22:55)
[2017-03-10] MEDS: METHADONE HCL 5 MG TABLET (FOR DETOX USE ONLY) PO SCH (10:49)
[2017-03-10] MEDS: ASPIRIN COATED 81 MG TABLET.EC PO SCH (10:49)
[2017-03-10] MEDS: PRENATAL VITAMINS W/ FOLIC ACID TABLET (FP) PO SCH (10:49)
[2017-03-10] MEDS: QUEtiapine FUMARATE 50 MG TABLET PO SCH ×2 (10:49→22:55)
[2017-03-10] MEDS: NICOTINE POLACRILEX 4 MG GUM BC PRN ×2 (10:52→22:59)
[2017-03-10] MEDS: SERTRALINE HCL 50 MG TABLET (FP) PO SCH (14:24)
[2017-03-10] MEDS: LIDOCAINE 5% TOPICAL PATCH TP SCH (14:25)
--- NOTE | 2017-03-10 18:42 | PN ---
[facility] CIWA - CIWA Score Nausea/Vomitin Muscle Tremors: 4-Moderate,w/Arms Extend Anxiety: 2 Agitation: 3 Paroxysmal Sweats: 2 Orientation: 1-Uncertain about Date Tacttile Disturbances: 2-Mild Itch/Numbness/Burn Auditory Disturbances: 0-None Visual Disturbances: 2-Mild Sensitivity Headache: 0-None Present CIWA-Ar Total Score: 19 BHS COWS - Scale Resting Pulse: 1= [place] 81-100 Sweatin= Chills/Flushing Restless Observation: 1= Difficult to Sit Still Pupil Size: 0= Normal to Room Light Bone or Joint Aches: 2= Severe Diffuse Aches Runny Nose/ Eye Tearin= Runny Nose/Eyes GI Upset > 30mins: 2= Nausea/Diarrhea Tremor Observation of Outstretched Hands: 2= Slight Tremor Visible Yawning Observation: 2= >3x During Session Anxiety or Irritability: 2=Irritable/Anxious Goose Flesh Skin: 3=Piloerection COWS Score: 18 S Progress Note (SOAP) Subjective: Nausea, Stomach cramping, Interrupted sleep, Body Aches,Tremors, Sweating. Pt. reports pain in lower left leg, primarily affecting calf muscle (chronic). Objective: PT. A & O X 2 (DISORIENTED ABOUT DAY / DATE). PT. OBSERVED AMBULATING ON UNIT. NO REDNESS, SWELLING, OR WOUNDS NOTED IN LEFT LEG. PATIENT DENIES NUMBNESS / TINGLING IN LEFT LEG AND FOOT. 03/10/17 18:39 Vital Signs Temperature 96.6 F L 03/10/17 14:40 Pulse Rate 109 H 03/10/17 14:40 Respiratory Rate 18 03/10/17 14:40 Blood Pressure 110/65 03/10/17 14:40 O2 Sat by Pulse Oximetry (%) Laboratory Last Values WBC 4.5 K/mm3 (4.0-10.0) 03/09/17 07:00 RBC 4.15 M/mm3 (3.60-5.2) 03/09/17 07:00 Hgb 12.1 GM/dL (10.7-15.3) 03/09/17 07:00 Hct 36.7 % (32.4-45.2) 03/09/17 07:00 MCV 88.4 fl (80-96) 03/09/17 07:00 MCHC 33.0 g/dl (32.0-36.0) 03/09/17 07:00 RDW 15.6 % (11.6-15.6) 03/09/17 07:00 Plt Count 264 K/MM3 (134-434) 03/09/17 07:00 MPV 8.4 fl (7.5-11.1) 03/09/17 07:00 Sodium 142 mmol/L (136-145) 03/09/17 07:00 Potassium 4.5 mmol/L (3.5-5.1) D 03/09/17 07:00 Chloride 105 mmol/L (98-107) 03/09/17 07:00 Carbon Dioxide 28 mmol/L (21-32) 03/09/17 07:00 Anion Gap 9 (8-16) 03/09/17 07:00 BUN 10 mg/dL (7-18) 03/09/17 07:00 Creatinine 0.7 mg/dL (0.55-1.02) D 03/09/17 07:00 Creat Clearance w eGFR > 60 (>60) 03/09/17 07:00 Random Glucose 111 mg/dL (74-106) H 03/09/17 07:00 Calcium 9.2 mg/dL (8.5-10.1) 03/09/17 07:00 Total Bilirubin 0.3 mg/dL (0.2-1.0) D 03/09/17 07:00 AST 12 U/L (15-37) L 03/09/17 07:00 ALT 27 U/L (12-78) D 03/09/17 07:00 Alkaline Phosphatase 69 U/L (45-117) D 03/09/17 07:00 Total Protein 6.1 g/dl (6.4-8.2) L 03/09/17 07:00 Albumin 3.2 g/dl (3.4-5.0) L 03/09/17 07:00 Urine Color Yellow 03/08/17 19:30 Urine Appearance Slcloudy 03/08/17 19:30 Urine pH 7.0 (5.0-8.0) D 03/08/17 19:30 Ur Specific [place] 1.026 (1.001-1.035) 03/08/17 19:30 Urine Protein Negative (NEGATIVE) 03/08/17 19:30 Urine Glucose (UA) Negative (NEGATIVE) 03/08/17 19:30 Urine Ketones Negative (NEGATIVE) 03/08/17 19:30 Urine Blood Negative (NEGATIVE) 03/08/17 19:30 Urine Nitrite Negative (NEGATIVE) 03/08/17 19:30 Urine Bilirubin Negative (NEGATIVE) 03/08/17 19:30 Urine Urobilinogen 2.0 e.u/dl E.U./dl (0.2-1.0) H 03/08/17 19:30 Ur Leukocyte Esterase Negative (NEGATIVE) 03/08/17 19:30 RPR Titer Nonreactive (NONREACTIVE) 03/09/17 07:00 LABS NOTED. Assessment: 03/10/17 18:41 WITHDRAWAL SYMPTOMS. Plan: CONTINUE DETOX. ADVISED PATIENT TO FOLLOW-UP WITH [facility] / REHAB MEDICAL PROVIDER AFTER DISCHARGE FROM DETOX FOR GENERAL MEDICAL ASSESSMENT, FOR PAIN IN LEFT LEG, AND FOR ABNORMAL ADMISSION LAB VALUES.
[2017-03-10] MEDS: THIAMINE HCL 100 MG TABLET (FP) PO SCH (22:55)
[2017-03-10] MEDS: MIRTAZAPINE 30 MG TABLET (FP) PO SCH (22:56)
[2017-03-11] MEDS: diazePAM 5 MG TABLET PO PRN ×2 (06:24→14:06)
--- NOTE | 2017-03-11 10:14 | PN ---
BHS Progress Note (SOAP) Subjective: Sweating,interrupted sleep,restless Objective: 03/11/17 10:14 Vital Signs - 8 hr 03/11/17 03/11/17 03:30 06:00 Temperature 97.5 F L Pulse Rate 106 H Respiratory 18 18 Rate Blood Pressure 131/79 Laboratory Tests 03/08/17 03/09/17 03/09/17 19:30 07:00 07:00 WBC 4.5 RBC 4.15 Hgb 12.1 Hct 36.7 MCV 88.4 MCHC 33.0 RDW 15.6 Plt Count 264 MPV 8.4 Sodium 142 Potassium 4.5 D Chloride 105 Carbon Dioxide 28 Anion Gap 9 BUN 10 Creatinine 0.7 D Creat Clearance w eGFR > 60 Random Glucose 111 H Calcium 9.2 Total Bilirubin 0.3 D AST 12 L ALT 27 D Alkaline Phosphatase 69 D Total Protein 6.1 L Albumin 3.2 L Urine Color Yellow Urine Appearance Slcloudy Urine pH 7.0 D Ur Specific [place] 1.026 Urine Protein Negative Urine Glucose (UA) Negative Urine Ketones Negative Urine Blood Negative Urine Nitrite Negative Urine Bilirubin Negative Urine Urobilinogen 2.0 e.u/dl H Ur Leukocyte Esterase Negative RPR Titer 03/09/17 07:00 WBC RBC Hgb Hct MCV MCHC RDW Plt Count MPV Sodium Potassium Chloride Carbon Dioxide Anion Gap BUN Creatinine Creat Clearance w eGFR Random Glucose Calcium Total Bilirubin AST ALT Alkaline Phosphatase Total Protein Albumin Urine Color Urine Appearance Urine pH Ur Specific [place] Urine Protein Urine Glucose (UA) Urine Ketones Urine Blood Urine Nitrite Urine Bilirubin Urine Urobilinogen Ur Leukocyte Esterase RPR Titer Nonreactive labs noted Assessment: 03/11/17 10:14 Withdrawal sx. Plan: Continue detox
[2017-03-11] MEDS: LIDOCAINE 5% TOPICAL PATCH TP SCH (10:49)
[2017-03-11] MEDS: SERTRALINE HCL 50 MG TABLET (FP) PO SCH (10:50)
[2017-03-11] MEDS: QUEtiapine FUMARATE 50 MG TABLET PO SCH ×2 (10:50→22:26)
[2017-03-11] MEDS: levETIRAcetam 500 MG TABLET (FP) PO SCH ×2 (10:50→22:26)
[2017-03-11] MEDS: diazePAM 5 MG TABLET PO SCH ×2 (10:50→22:25)
[2017-03-11] MEDS: ASPIRIN COATED 81 MG TABLET.EC PO SCH (10:50)
[2017-03-11] MEDS: NICOTINE 21 MG/24 HOURS TOPICAL PATCH TD SCH (10:51)
[2017-03-11] MEDS: PRENATAL VITAMINS W/ FOLIC ACID TABLET (FP) PO SCH (10:51)
[2017-03-11] MEDS: NICOTINE POLACRILEX 4 MG GUM BC PRN ×3 (10:52→22:26)
[2017-03-11] MEDS: METHADONE HCL 5 MG TABLET (FOR DETOX USE ONLY) PO SCH (10:52)
[2017-03-11] MEDS: THIAMINE HCL 100 MG TABLET (FP) PO SCH (22:25)
[2017-03-11] MEDS: MIRTAZAPINE 30 MG TABLET (FP) PO SCH (22:26)
[2017-03-11] MEDS: ZOLPIDEM TARTRATE 10 MG TABLET (PARK CARE ONLY) PO PRN (22:26)
[2017-03-12] MEDS ORDERED: diazePAM 5 MG TABLET PO SCH (10:00)
[2017-03-12] MEDS ORDERED: METHADONE HCL 10 MG TABLET (FOR DETOX USE ONLY) PO SCH (10:00)
[2017-03-12] MEDS: ASPIRIN COATED 81 MG TABLET.EC PO SCH (10:55)
[2017-03-12] MEDS: PRENATAL VITAMINS W/ FOLIC ACID TABLET (FP) PO SCH (10:55)
[2017-03-12] MEDS: levETIRAcetam 500 MG TABLET (FP) PO SCH ×2 (10:55→22:14)
[2017-03-12] MEDS: NICOTINE 21 MG/24 HOURS TOPICAL PATCH TD SCH (10:55)
[2017-03-12] MEDS: SERTRALINE HCL 50 MG TABLET (FP) PO SCH (10:55)
[2017-03-12] MEDS: QUEtiapine FUMARATE 50 MG TABLET PO SCH ×2 (10:55→22:15)
[2017-03-12] MEDS: LIDOCAINE 5% TOPICAL PATCH TP SCH (10:56)
--- NOTE | 2017-03-12 11:50 | PN ---
BHS Progress Note (SOAP) Subjective: shakes upset stomach Objective: 03/12/17 11:47 Vital Signs Temperature 98.4 F 03/12/17 09:43 Pulse Rate 94 H 03/12/17 09:43 Respiratory Rate 20 03/12/17 09:43 Blood Pressure 135/75 03/12/17 09:43 O2 Sat by Pulse Oximetry (%) awake/alert ambulating no acute distress Assessment: 03/12/17 11:49 withdrawal sx Plan: continue detox increase fluids d/c in am
[2017-03-12] MEDS: MIRTAZAPINE 30 MG TABLET (FP) PO SCH (22:14)
[2017-03-12] MEDS: ZOLPIDEM TARTRATE 10 MG TABLET (PARK CARE ONLY) PO PRN (22:14)
[2017-03-12] MEDS: THIAMINE HCL 100 MG TABLET (FP) PO SCH (22:14)
[2017-03-12] MEDS: NICOTINE POLACRILEX 4 MG GUM BC PRN (22:17)
[2017-03-13] MEDS ORDERED: METHADONE HCL 5 MG TABLET (FOR DETOX USE ONLY) PO SCH (06:00)
--- NOTE | 2017-03-13 09:08 | DS ---
[facility] Detox Discharge Summary Admission Date: 03/08/17 Discharge Date: 03/13/17 - History Present History: Alcohol Dependence, Opioid Dependence, Sedative Dependence - Physical Exam Results Vital Signs: Vital Signs Temperature 97.5 F L 03/13/17 07:06 Pulse Rate 92 H 03/13/17 07:06 Respiratory Rate 18 03/13/17 07:06 Blood Pressure 80/58 03/13/17 07:06 O2 Sat by Pulse Oximetry (%) - Medication Discharge Medications: Ambulatory Orders Aspirin [Aspirin EC] 81 mg PO DAILY 04/28/14 Levetiracetam [Keppra -] 1,000 mg PO BID 09/03/16 Quetiapine Fumarate [Seroquel -] 200 mg PO HS #30 tab 01/25/17 Quetiapine Fumarate [Seroquel -] 200 mg PO HS #30 tab 03/09/17 Mirtazapine [Remeron -] 30 mg PO HS #30 tablet 03/10/17 Sertraline HCl [Zoloft -] 100 mg PO DAILY #30 tablet 03/10/17 Zolpidem Tartrate [Ambien] 10 mg PO HS #14 tablet MDD 10 03/10/17 - Diagnosis (1) Alcohol dependence with uncomplicated withdrawal Current Visit: Yes Status: Acute (2) Anxiety Current Visit: Yes Status: Chronic (3) Benzodiazepine dependence Current Visit: Yes Status: Acute (4) Hemiparesis affecting right side as late effect of cerebrovascular accident Current Visit: Yes Status: Chronic (5) Hepatitis C Current Visit: Yes Status: Chronic Qualifiers: Viral hepatitis chronicity: chronic Hepatic coma status: without hepatic coma Qualified Code(s): B18.2 - Chronic viral hepatitis C (6) Nicotine dependence Current Visit: Yes Status: Acute Qualifiers: Nicotine product type: cigarettes Substance use status: uncomplicated Qualified Code(s): F17.210 - Nicotine dependence, cigarettes, uncomplicated (7) Opioid dependence with withdrawal Current Visit: Yes Status: Acute (8) Uncomplicated sedative, hypnotic or anxiolytic withdrawal Current Visit: Yes Status: Acute (9) Seizure disorder Current Visit: Yes Status: Chronic
[2017-03-13] MEDS: levETIRAcetam 500 MG TABLET (FP) PO SCH (09:23)
[2017-03-13] MEDS: QUEtiapine FUMARATE 50 MG TABLET PO SCH (09:23)
[2017-03-13] MEDS: ASPIRIN COATED 81 MG TABLET.EC PO SCH (09:23)
[2017-03-13] MEDS: NICOTINE POLACRILEX 4 MG GUM BC PRN (09:23)
[2017-03-13] MEDS: SERTRALINE HCL 50 MG TABLET (FP) PO SCH (09:23)
[2017-03-13] MEDS: PRENATAL VITAMINS W/ FOLIC ACID TABLET (FP) PO SCH (09:23)
[2017-03-13 09:56] VITALS: BP 100/66; PULSE 98; TEMP 98.1
[2017-03-13] MEDS: NICOTINE 21 MG/24 HOURS TOPICAL PATCH TD SCH (11:00)
[2017-03-13] MEDS: LIDOCAINE 5% TOPICAL PATCH TP SCH (11:00)
== END 2017-03-13 11:12 | disposition home or self-care (01) | DRG 773 ==
LOC: YASAS 12:02 → Y6N 16:32
PROVIDERS: ADMIT Internal Medicine Addiction Medicine; ATTEND Internal Medicine Addiction Medicine
PROC: HZ2ZZZZ Detoxification Services for Substance Abuse Treatment (ICD-10-PCS; principal; 2017-03-13)
DX: F11.23 Opioid dependence with withdrawal (principal); F13.230 Sedative, hypnotic or anxiolytic dependence with withdrawal, uncomplicated; F10.230 Alcohol dependence with withdrawal, uncomplicated; F17.210 Nicotine dependence, cigarettes, uncomplicated; F15.10 Other stimulant abuse, uncomplicated; G47.00 Insomnia, unspecified; G40.909 Epilepsy, unspecified, not intractable, without status epilepticus; I69.351 Hemiplegia and hemiparesis following cerebral infarction affecting right dominant side; B18.2 Chronic viral hepatitis C; R26.2 Difficulty in walking, not elsewhere classified
CPT/HCPCS: 36415; 80053; 81003; 85027; 86593; 93005; 93010

== ENCOUNTER 2017-07-31 13:41 | Inpatient (IN) | payer OTHER ==
[2017-07-31 13:58] VITALS: BMI 25.9
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
[2017-07-31] MEDS ORDERED: LOPERAMIDE HCL 2 MG CAPSULE PO PRN (16:21)
[2017-07-31] MEDS ORDERED: guaiFENesin/D-METHORPHAN HB 10 ML UNIT-DOSE CUPS PO PRN (16:21)
[2017-07-31] MEDS ORDERED: MAGNESIUM CITRATE 300 ML BOTTLE PO PRN (16:21)
[2017-07-31] MEDS ORDERED: P-EPHED 60MG/TRIPROLIDI 2.5MG TABLET PO PRN (16:21)
[2017-07-31] MEDS ORDERED: MENTHOL/PHENOL 1 EACH UD MM PRN (16:21)
[2017-07-31] MEDS ORDERED: MAG HYDROX/AL HYDROX/SIMETH 30 ML UNIT-DOSE CUP PO PRN (16:21)
[2017-07-31] MEDS ORDERED: ACETAMINOPHEN 325 MG TABLET (FP) PO PRN (16:21)
[2017-07-31] MEDS ORDERED: IBUPROFEN 400 MG TABLET (FP) PO PRN (16:21)
[2017-07-31] MEDS ORDERED: MAGNESIUM HYDROX 2400MG/30ML ORAL SUSPENSION 30 ML CUP PO PRN (16:21)
[2017-07-31] MEDS ORDERED: METHADONE HCL 10 MG TABLET (FOR DETOX USE ONLY) PO ONE ×2 (17:30→23:00)
[2017-07-31] MEDS ORDERED: diazePAM 5 MG TABLET PO ONE (17:30)
[2017-07-31] MEDS: THIAMINE HCL 100 MG TABLET (FP) PO SCH (22:14)
[2017-07-31] MEDS: levETIRAcetam 500 MG TABLET (FP) PO SCH (22:14)
[2017-07-31] MEDS: diazePAM 5 MG TABLET PO SCH (22:15)
[2017-07-31] MEDS: diphenhydrAMINE HCL 50 MG CAPSULE PO PRN (22:19)
[2017-08-01 00:47] LABS: URINE APPEARANCE SLCLOUDY; URINE BILIRUBIN NEGATIVE (NEGATIVE); URINE BLOOD 3+ (NEGATIVE); URINE GLUCOSE (UA) NEGATIVE (NEGATIVE); URINE KETONE NEGATIVE (NEGATIVE); URINE LEUK ESTERASE NEGATIVE (NEGATIVE); URINE NITRITE NEGATIVE (NEGATIVE); URINE UROBILINOGEN NEGATIVE mg/dL (0.2-1.0)
[2017-08-01 00:53] LABS: URINE PROTEIN 1+ (NEGATIVE)
[2017-08-01 00:54] LABS: URINE COLOR DARK YELLOW
[2017-08-01 00:57] LABS: CALCIUM OXALATE CRYSTALS MODERATE /hpf (NONE SEEN); URINE MUCUS MANY; URINE RBC 65 /hpf (0-3); URINE WBC 7 /hpf (3-5)
[2017-08-01] MEDS: diazePAM 5 MG TABLET PO PRN ×4 (02:15→17:10)
[2017-08-01] MEDS: diphenhydrAMINE HCL 50 MG CAPSULE PO PRN (02:15)
[2017-08-01] MEDS: diazePAM 5 MG TABLET PO SCH ×3 (05:08→21:57)
--- NOTE | 2017-08-01 08:10 | CONSULT ---
[facility] Psychiatric Consult - Data Date of interview: 08/01/17 Admission source: [facility] Identifying data: Aisha is 32 years old female, ambulating with walker/ane, with no psychiatric hospitalization history intoixicated with: Alcohol, Opioids , Xanax and Nicotine Substance Abuse History: - Smoking Cessation. Smoking history: Current every day smoker. Have you smoked in the past 12 months: Yes. Aproximately how many cigarettes per day: 10. Cigars Per Day: 0. Hx Chewing Tobacco Use: No. Initiated information on smoking cessation: Yes. 'Breaking Loose' booklet given : 07/31/17. - Substance & Tx. History. Hx Alcohol Use: No. Hx Substance Use: Yes. Substance Use Type: Heroin, Tranquilizers. Hx Substance Use Treatment: Yes (02/2017). - Substances Abused. Heroin. Route: Injection. Frequency: Daily. Amount used: 4-5 bags. Age of first use: 22. Date of Last Use: . Alprazolam (Xanax). Route: Oral. Frequency: Daily. Amount used: 10mg. Age of first use: 15. Date of Last Use: 07/31/17 Medical History: History of Stroke, Asthna, HepC+, Seizure history Psychiatric History: Patient reprots history of depression and anxiety, reports taking prior to admission: Ambien 10mh po qhs. Zoloft 200mg poqhs, 50mg poqd. Seroquel 200mg po qhs Physical/Sexual Abuse/Trauma History: Denies Additional Comment: Ambien 10mh po qhs. Zoloft 200mg poqhs, 50mg poqd. Seroquel 200mg po qhs Mental Status Exam - Mental Status Exam Alert and Oriented to: Person Cognitive Function: Fair Patient Appearance: Unkempt Mood: Sad Affect: Flat Patient Behavior: Sedated Speech Pattern: Delayed Voice Loudness: Normal Thought Process: Goal Oriented Thought Disorder: Being Controlled Hallucinations: Denies Suicidal Ideation: Denies Homicidal Ideation: Denies Insight/Judgement: Fair Sleep: Difficulty falling asleep Appetite: Weight gain Muscle strength/Tone: Clonus Gait/Station: Ataxic Additional Comments: Ambien 10mh po qhs. Zoloft 200mg poqhs, 50mg poqd. Seroquel 200mg po qhs Psychiatric Findings - Problem List ([place] 1, 2,3) (1) Nicotine dependence Current Visit: Yes Status: Chronic Qualifiers: Nicotine product type: cigarettes Substance use status: uncomplicated Qualified Code(s): F17.210 - Nicotine dependence, cigarettes, uncomplicated (2) Opioid dependence with withdrawal Current Visit: Yes Status: Chronic (3) Uncomplicated sedative, hypnotic or anxiolytic withdrawal Current Visit: Yes Status: Chronic (4) Alcohol dependence with uncomplicated withdrawal Current Visit: No Status: Acute (5) Amphetamine abuse Current Visit: No Status: Acute (6) Benzodiazepine dependence Current Visit: No Status: Acute (7) Drug-induced mood disorder Current Visit: No Status: Acute (8) Substance induced mood disorder Current Visit: No Status: Acute (9) Substance-induced anxiety disorder Current Visit: No Status: Suspected - Initial Treatment Plan Initial Treatment Plan: Ambien 10mh po qhs. Zoloft 200mg poqhs, 50mg poqd. Seroquel 200mg po qhs
[2017-08-01 09:38] LABS: MCH 30.3 pg (25.7-33.7); MEAN CELL VOLUME 91.8 fl (80-96); MEAN PLT VOLUME 8.8 fl (7.5-11.1); PLATELET COUNT 157 K/MM3 (134-434); RDW 18.3 % (11.6-15.6)
[2017-08-01] MEDS ORDERED: ZOLPIDEM TARTRATE 10 MG TABLET (PARK CARE ONLY) PO PRN (09:38)
[2017-08-01 09:48] LABS: ALBUMIN 2.9 g/dl (3.4-5.0); ANION GAP 7 (8-16); CO2 29 mmol/L (21-32); GLUCOSE,RANDOM 84 mg/dL (74-106); SGOT/AST 31 U/L (15-37); SGPT/ALT 64 U/L (12-78)
[2017-08-01 09:51] LABS: ALK PHOS 69 U/L (45-117); BILIRUBIN,TOTAL 0.2 mg/dL (0.2-1.0); CALCIUM 8.6 mg/dL (8.5-10.1); CREATININE 0.5 mg/dL (0.55-1.02); TOT PROT 5.4 g/dl (6.4-8.2)
[2017-08-01] MEDS ORDERED: METHADONE HCL 10 MG TABLET (FOR DETOX USE ONLY) PO SCH (10:00)
[2017-08-01] MEDS: hydrOXYzine PAMOATE 50 MG CAPSULE (FP) PO PRN (10:11)
[2017-08-01] MEDS: levETIRAcetam 500 MG TABLET (FP) PO SCH ×2 (10:11→21:54)
[2017-08-01] MEDS: ASPIRIN COATED 81 MG TABLET.EC PO SCH (10:11)
[2017-08-01] MEDS: PRENATAL VITAMINS W/ FOLIC ACID TABLET (FP) PO SCH (10:11)
[2017-08-01] MEDS: NICOTINE 21 MG/24 HOURS TOPICAL PATCH TD SCH (10:12)
[2017-08-01] MEDS: SERTRALINE HCL 50 MG TABLET (FP) PO SCH ×2 (10:15→21:54)
--- NOTE | 2017-08-01 10:24 | EKG ---
Test Reason : Blood Pressure : / mmHG Vent. Rate : 080 BPM Atrial Rate : 080 BPM P-R Int : 142 ms QRS Dur : 086 ms QT Int : 416 ms P-R-T Axes : 066 001 015 degrees QTc Int : 479 ms NORMAL SINUS RHYTHM POSSIBLE INFERIOR INFARCT , AGE UNDETERMINED ANTERIOR INFARCT , AGE UNDETERMINED ABNORMAL ECG WHEN COMPARED WITH ECG OF 08-MAR-2017 16:40, ANTERIOR INFARCT IS NOW PRESENT NONSPECIFIC T WAVE ABNORMALITY NOW EVIDENT IN LATERAL LEADS Confirmed by DANIEL SMITH MD ([id number]) on 08/01/2017 10:23:27 AM Referred By: [facility] Confirmed By:DANIEL SMITH MD
[2017-08-01] MEDS ORDERED: LIDOCAINE 5% TOPICAL PATCH TP ONE (11:43)
[2017-08-01] MEDS ORDERED: QUEtiapine FUMARATE 100 MG TABLET (FP) PO STA (11:44)
[2017-08-01] MEDS: QUEtiapine FUMARATE 200 MG TABLET PO SCH (21:54)
[2017-08-01] MEDS: THIAMINE HCL 100 MG TABLET (FP) PO SCH (21:55)
[2017-08-01] MEDS: LIDOCAINE PATCH REMOVAL MC SCH (22:55)
[2017-08-02] MEDS: diazePAM 5 MG TABLET PO PRN ×4 (05:28→19:32)
--- NOTE | 2017-08-02 09:06 | PN ---
[facility] CIWA - CIWA Score Nausea/Vomitin Muscle Tremors: 4-Moderate,w/Arms Extend Anxiety: 4-Mod. Anxious/Guarded Agitation: 4-Moderately Restless Paroxysmal Sweats: 3 Orientation: 0-Oriented Tacttile Disturbances: 0-None Auditory Disturbances: 0-None Visual Disturbances: 0-None Headache: 0-None Present CIWA-Ar Total Score: 18 BHS COWS - Scale Resting Pulse: 1= [place] 81-100 Sweatin= Chills/Flushing Restless Observation: 1= Difficult to Sit Still Pupil Size: 1= Pupils >than Normal Bone or Joint Aches: 1= Mild Discomfort Runny Nose/ Eye Tearin= Nasal Congestion GI Upset > 30mins: 2= Nausea/Diarrhea Tremor Observation of Outstretched Hands: 2= Slight Tremor Visible Yawning Observation: 1= 1-2x During Session Anxiety or Irritability: 2=Irritable/Anxious Goose Flesh Skin: 3=Piloerection COWS Score: 16 S Progress Note (SOAP) Subjective: nausea, sweats, interrupted sleep, anxiety, tremors Objective: 08/01/17 Laboratory Tests 07/31/17 08/01/17 08/01/17 23:51 07:00 07:00 WBC 5.0 RBC 3.71 Hgb 11.2 Hct 34.0 MCV 91.8 MCH 30.3 MCHC 33.0 RDW 18.3 H D Plt Count 157 D MPV 8.8 Sodium 144 Potassium 4.1 Chloride 108 H Carbon Dioxide 29 Anion Gap 7 L BUN 13 D Creatinine 0.5 L D Creat Clearance w eGFR > 60 Random Glucose 84 D Calcium 8.6 Total Bilirubin 0.2 D AST 31 D ALT 64 D Alkaline Phosphatase 69 Total Protein 5.4 L Albumin 2.9 L Urine Color Dark yellow Urine Appearance Slcloudy Urine pH 5.0 D Ur Specific [place] >= 1.030 H Urine Protein 1+ H Urine Glucose (UA) Negative Urine Ketones Negative Urine Blood 3+ H Urine Nitrite Negative Urine Bilirubin Negative Urine Urobilinogen Negative Urine RBC 65 Urine WBC 7 Ur Epithelial Cells Few Calcium Oxalate Crystal Moderate Urine Mucus Many RPR Titer 08/01/17 07:00 WBC RBC Hgb Hct MCV MCH MCHC RDW Plt Count MPV Sodium Potassium Chloride Carbon Dioxide Anion Gap BUN Creatinine Creat Clearance w eGFR Random Glucose Calcium Total Bilirubin AST ALT Alkaline Phosphatase Total Protein Albumin Urine Color Urine Appearance Urine pH Ur Specific [place] Urine Protein Urine Glucose (UA) Urine Ketones Urine Blood Urine Nitrite Urine Bilirubin Urine Urobilinogen Urine RBC Urine WBC Ur Epithelial Cells Calcium Oxalate Crystal Urine Mucus RPR Titer Nonreactive Vital Signs - 24 hr 08/01/17 08/01/17 08/01/17 11:40 14:03 18:09 Temperature 96.4 F L 98.1 F 97.4 F L Pulse Rate 69 84 79 Respiratory 18 16 18 Rate Blood Pressure 103/69 105/69 112/86 08/01/17 08/02/17 08/02/17 22:58 00:30 03:30 Temperature 97.9 F Pulse Rate 71 Respiratory 18 18 18 Rate Blood Pressure 113/76 08/02/17 06:37 Temperature 97.7 F Pulse Rate 85 Respiratory 18 Rate Blood Pressure 103/69 Assessment: withdrawal sx Plan: cont detox, fluids
--- NOTE | 2017-08-02 09:10 | PN ---
S CIWA - CIWA Score Nausea/Vomitin Muscle Tremors: 4-Moderate,w/Arms Extend Anxiety: 4-Mod. Anxious/Guarded Agitation: 4-Moderately Restless Paroxysmal Sweats: 3 Orientation: 0-Oriented Tacttile Disturbances: 0-None Auditory Disturbances: 0-None Visual Disturbances: 0-None Headache: 0-None Present CIWA-Ar Total Score: 18 BHS COWS - Scale Resting Pulse: 1= [place] 81-100 Sweatin= Chills/Flushing Restless Observation: 1= Difficult to Sit Still Pupil Size: 1= Pupils >than Normal Bone or Joint Aches: 1= Mild Discomfort Runny Nose/ Eye Tearin= Nasal Congestion GI Upset > 30mins: 2= Nausea/Diarrhea Tremor Observation of Outstretched Hands: 2= Slight Tremor Visible Yawning Observation: 1= 1-2x During Session Anxiety or Irritability: 2=Irritable/Anxious Goose Flesh Skin: 3=Piloerection COWS Score: 16 S Progress Note (SOAP) Subjective: nausea, sweats, interruted sleep, anxiety, tremors Objective: 08/02/17 09:08 Vital Signs - 8 hr 08/02/17 08/02/17 03:30 06:37 Temperature 97.7 F Pulse Rate 85 Respiratory 18 18 Rate Blood Pressure 103/69 Vital Signs - 8 hr 08/02/17 08/02/17 03:30 06:37 Temperature 97.7 F Pulse Rate 85 Respiratory 18 18 Rate Blood Pressure 103/69 Laboratory Tests 07/31/17 08/01/17 08/01/17 23:51 07:00 07:00 WBC 5.0 RBC 3.71 Hgb 11.2 Hct 34.0 MCV 91.8 MCH 30.3 MCHC 33.0 RDW 18.3 H D Plt Count 157 D MPV 8.8 Sodium 144 Potassium 4.1 Chloride 108 H Carbon Dioxide 29 Anion Gap 7 L BUN 13 D Creatinine 0.5 L D Creat Clearance w eGFR > 60 Random Glucose 84 D Calcium 8.6 Total Bilirubin 0.2 D AST 31 D ALT 64 D Alkaline Phosphatase 69 Total Protein 5.4 L Albumin 2.9 L Urine Color Dark yellow Urine Appearance Slcloudy Urine pH 5.0 D Ur Specific [place] >= 1.030 H Urine Protein 1+ H Urine Glucose (UA) Negative Urine Ketones Negative Urine Blood 3+ H Urine Nitrite Negative Urine Bilirubin Negative Urine Urobilinogen Negative Urine RBC 65 Urine WBC 7 Ur Epithelial Cells Few Calcium Oxalate Crystal Moderate Urine Mucus Many RPR Titer 08/01/17 07:00 WBC RBC Hgb Hct MCV MCH MCHC RDW Plt Count MPV Sodium Potassium Chloride Carbon Dioxide Anion Gap BUN Creatinine Creat Clearance w eGFR Random Glucose Calcium Total Bilirubin AST ALT Alkaline Phosphatase Total Protein Albumin Urine Color Urine Appearance Urine pH Ur Specific [place] Urine Protein Urine Glucose (UA) Urine Ketones Urine Blood Urine Nitrite Urine Bilirubin Urine Urobilinogen Urine RBC Urine WBC Ur Epithelial Cells Calcium Oxalate Crystal Urine Mucus RPR Titer Nonreactive Assessment: 08/02/17 09:09 withdrawal sx Plan: cont detox, fluids, encourage ambulation
[2017-08-02] MEDS: METHADONE HCL 5 MG TABLET (FOR DETOX USE ONLY) PO SCH (10:14)
[2017-08-02] MEDS: levETIRAcetam 500 MG TABLET (FP) PO SCH ×2 (10:14→22:18)
[2017-08-02] MEDS: hydrOXYzine PAMOATE 50 MG CAPSULE (FP) PO PRN (10:14)
[2017-08-02] MEDS: ASPIRIN COATED 81 MG TABLET.EC PO SCH (10:14)
[2017-08-02] MEDS: PRENATAL VITAMINS W/ FOLIC ACID TABLET (FP) PO SCH (10:14)
[2017-08-02] MEDS: NICOTINE 21 MG/24 HOURS TOPICAL PATCH TD SCH (10:15)
[2017-08-02] MEDS: diazePAM 5 MG TABLET PO SCH ×2 (10:17→22:22)
[2017-08-02] MEDS: QUEtiapine FUMARATE 100 MG TABLET (FP) PO SCH (10:17)
[2017-08-02] MEDS: SERTRALINE HCL 50 MG TABLET (FP) PO SCH ×2 (10:18→22:19)
[2017-08-02] MEDS: LIDOCAINE 5% TOPICAL PATCH TP SCH (11:04)
[2017-08-02] MEDS: QUEtiapine FUMARATE 200 MG TABLET PO SCH (22:19)
[2017-08-02] MEDS: THIAMINE HCL 100 MG TABLET (FP) PO SCH (22:19)
[2017-08-02] MEDS: LIDOCAINE PATCH REMOVAL MC SCH (22:23)
[2017-08-03] MEDS: diazePAM 5 MG TABLET PO PRN ×2 (05:17→13:40)
[2017-08-03] MEDS: QUEtiapine FUMARATE 100 MG TABLET (FP) PO SCH (10:15)
[2017-08-03] MEDS: levETIRAcetam 500 MG TABLET (FP) PO SCH ×2 (10:15→22:26)
[2017-08-03] MEDS: PRENATAL VITAMINS W/ FOLIC ACID TABLET (FP) PO SCH (10:15)
[2017-08-03] MEDS: SERTRALINE HCL 50 MG TABLET (FP) PO SCH ×2 (10:15→22:26)
[2017-08-03] MEDS: METHADONE HCL 5 MG TABLET (FOR DETOX USE ONLY) PO SCH (10:16)
[2017-08-03] MEDS: ASPIRIN COATED 81 MG TABLET.EC PO SCH (10:16)
[2017-08-03] MEDS: diazePAM 5 MG TABLET PO SCH ×2 (10:16→22:26)
[2017-08-03] MEDS: NICOTINE 21 MG/24 HOURS TOPICAL PATCH TD SCH (10:16)
[2017-08-03] MEDS ORDERED: LIDOCAINE 5% TOPICAL PATCH TP SCH (10:36)
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
[2017-08-03] MEDS: LIDOCAINE 5% TOPICAL PATCH TP SCH (10:55)
[2017-08-03] MEDS: NICOTINE POLACRILEX 2 MG GUM BUC PRN (12:39)
[2017-08-03] MEDS: THIAMINE HCL 100 MG TABLET (FP) PO SCH (22:25)
[2017-08-03] MEDS: QUEtiapine FUMARATE 200 MG TABLET PO SCH (22:26)
[2017-08-03] MEDS: LIDOCAINE PATCH REMOVAL MC SCH (23:15)
[2017-08-04] MEDS ORDERED: METHADONE HCL 10 MG TABLET (FOR DETOX USE ONLY) PO SCH (10:00)
[2017-08-04] MEDS ORDERED: diazePAM 5 MG TABLET PO SCH (10:00)
[2017-08-04] MEDS: PRENATAL VITAMINS W/ FOLIC ACID TABLET (FP) PO SCH (10:32)
[2017-08-04] MEDS: levETIRAcetam 500 MG TABLET (FP) PO SCH ×2 (10:32→22:11)
[2017-08-04] MEDS: ASPIRIN COATED 81 MG TABLET.EC PO SCH (10:32)
[2017-08-04] MEDS: QUEtiapine FUMARATE 100 MG TABLET (FP) PO SCH (10:33)
[2017-08-04] MEDS: NICOTINE 21 MG/24 HOURS TOPICAL PATCH TD SCH (10:33)
[2017-08-04] MEDS: SERTRALINE HCL 50 MG TABLET (FP) PO SCH ×2 (10:34→22:11)
--- NOTE | 2017-08-04 11:22 | PN ---
BHS Progress Note (SOAP) Subjective: sweats, shakes,abdominal cramps and left calf pain Objective: 08/04/17 11:19 Vital Signs - 8 hr 08/04/17 08/04/17 08/04/17 03:30 06:31 10:50 Temperature 97.5 F L 97.7 F Pulse Rate 63 68 Respiratory 18 16 16 Rate Blood Pressure 94/50 98/55 Laboratory Last Values WBC 5.0 K/mm3 (4.0-10.0) 08/01/17 07:00 RBC 3.71 M/mm3 (3.60-5.2) 08/01/17 07:00 Hgb 11.2 GM/dL (10.7-15.3) 08/01/17 07:00 Hct 34.0 % (32.4-45.2) 08/01/17 07:00 MCV 91.8 fl (80-96) 08/01/17 07:00 MCH 30.3 pg (25.7-33.7) 08/01/17 07:00 MCHC 33.0 g/dl (32.0-36.0) 08/01/17 07:00 RDW 18.3 % (11.6-15.6) H D 08/01/17 07:00 Plt Count 157 K/MM3 (134-434) D 08/01/17 07:00 MPV 8.8 fl (7.5-11.1) 08/01/17 07:00 Sodium 144 mmol/L (136-145) 08/01/17 07:00 Potassium 4.1 mmol/L (3.5-5.1) 08/01/17 07:00 Chloride 108 mmol/L (98-107) H 08/01/17 07:00 Carbon Dioxide 29 mmol/L (21-32) 08/01/17 07:00 Anion Gap 7 (8-16) L 08/01/17 07:00 BUN 13 mg/dL (7-18) D 08/01/17 07:00 Creatinine 0.5 mg/dL (0.55-1.02) L D 08/01/17 07:00 Creat Clearance w eGFR > 60 (>60) 08/01/17 07:00 Random Glucose 84 mg/dL (74-106) D 08/01/17 07:00 Calcium 8.6 mg/dL (8.5-10.1) 08/01/17 07:00 Total Bilirubin 0.2 mg/dL (0.2-1.0) D 08/01/17 07:00 AST 31 U/L (15-37) D 08/01/17 07:00 ALT 64 U/L (12-78) D 08/01/17 07:00 Alkaline Phosphatase 69 U/L (45-117) 08/01/17 07:00 Total Protein 5.4 g/dl (6.4-8.2) L 08/01/17 07:00 Albumin 2.9 g/dl (3.4-5.0) L 08/01/17 07:00 Urine Color Dark yellow 07/31/17 23:51 Urine Appearance Slcloudy 07/31/17 23:51 Urine pH 5.0 (5.0-8.0) D 07/31/17 23:51 Ur Specific [place] >= 1.030 (1.005-1.025) H 07/31/17 23:51 Urine Protein 1+ (NEGATIVE) H 07/31/17 23:51 Urine Glucose (UA) Negative (NEGATIVE) 07/31/17 23:51 Urine Ketones Negative (NEGATIVE) 07/31/17 23:51 Urine Blood 3+ (NEGATIVE) H 07/31/17 23:51 Urine Nitrite Negative (NEGATIVE) 07/31/17 23:51 Urine Bilirubin Negative (NEGATIVE) 07/31/17 23:51 Urine Urobilinogen Negative mg/dL (0.2-1.0) 07/31/17 23:51 Urine RBC 65 /hpf (0-3) 07/31/17 23:51 Urine WBC 7 /hpf (3-5) 07/31/17 23:51 Ur Epithelial Cells Few /hpf (FEW) 07/31/17 23:51 Calcium Oxalate Crystal Moderate /hpf (NONE SEEN) 07/31/17 23:51 Urine Mucus Many 07/31/17 23:51 RPR Titer Nonreactive (NONREACTIVE) 08/01/17 07:00 labs noted Assessment: 08/04/17 11:20 withdrawal sx chronic left leg pain Plan: continue detox pain management as needed
[2017-08-04] MEDS: THIAMINE HCL 100 MG TABLET (FP) PO SCH (22:11)
[2017-08-04] MEDS: QUEtiapine FUMARATE 200 MG TABLET PO SCH (22:11)
[2017-08-04] MEDS: NICOTINE POLACRILEX 2 MG GUM BUC PRN (22:13)
[2017-08-04] MEDS: LIDOCAINE PATCH REMOVAL MC SCH (23:50)
[2017-08-05] MEDS ORDERED: METHADONE HCL 5 MG TABLET (FOR DETOX USE ONLY) PO SCH (06:00)
[2017-08-05] MEDS: PRENATAL VITAMINS W/ FOLIC ACID TABLET (FP) PO SCH (09:10)
[2017-08-05 10:16] VITALS: BP 102/65; PULSE 86; TEMP 97.5
--- NOTE | 2017-08-05 17:19 | DS ---
[facility] Detox Discharge Summary Admission Date: 07/31/17 Discharge Date: 08/05/17 - History Present History: Opioid Dependence, Sedative Dependence Pertinent Past History: Hep C Seizure disorder - Physical Exam Results Vital Signs: Vital Signs Temperature 97.5 F L 08/05/17 10:15 Pulse Rate 86 08/05/17 10:15 Respiratory Rate 18 08/05/17 10:15 Blood Pressure 102/65 08/05/17 10:15 O2 Sat by Pulse Oximetry (%) Pertinent Admission Physical Exam Findings: Withdrawal sx. Laboratory Last Values WBC 5.0 K/mm3 (4.0-10.0) 08/01/17 07:00 RBC 3.71 M/mm3 (3.60-5.2) 08/01/17 07:00 Hgb 11.2 GM/dL (10.7-15.3) 08/01/17 07:00 Hct 34.0 % (32.4-45.2) 08/01/17 07:00 MCV 91.8 fl (80-96) 08/01/17 07:00 MCH 30.3 pg (25.7-33.7) 08/01/17 07:00 MCHC 33.0 g/dl (32.0-36.0) 08/01/17 07:00 RDW 18.3 % (11.6-15.6) H D 08/01/17 07:00 Plt Count 157 K/MM3 (134-434) D 08/01/17 07:00 MPV 8.8 fl (7.5-11.1) 08/01/17 07:00 Sodium 144 mmol/L (136-145) 08/01/17 07:00 Potassium 4.1 mmol/L (3.5-5.1) 08/01/17 07:00 Chloride 108 mmol/L (98-107) H 08/01/17 07:00 Carbon Dioxide 29 mmol/L (21-32) 08/01/17 07:00 Anion Gap 7 (8-16) L 08/01/17 07:00 BUN 13 mg/dL (7-18) D 08/01/17 07:00 Creatinine 0.5 mg/dL (0.55-1.02) L D 08/01/17 07:00 Creat Clearance w eGFR > 60 (>60) 08/01/17 07:00 Random Glucose 84 mg/dL (74-106) D 08/01/17 07:00 Calcium 8.6 mg/dL (8.5-10.1) 08/01/17 07:00 Total Bilirubin 0.2 mg/dL (0.2-1.0) D 08/01/17 07:00 AST 31 U/L (15-37) D 08/01/17 07:00 ALT 64 U/L (12-78) D 08/01/17 07:00 Alkaline Phosphatase 69 U/L (45-117) 08/01/17 07:00 Total Protein 5.4 g/dl (6.4-8.2) L 08/01/17 07:00 Albumin 2.9 g/dl (3.4-5.0) L 08/01/17 07:00 Urine Color Dark yellow 07/31/17 23:51 Urine Appearance Slcloudy 07/31/17 23:51 Urine pH 5.0 (5.0-8.0) D 07/31/17 23:51 Ur Specific [place] >= 1.030 (1.005-1.025) H 07/31/17 23:51 Urine Protein 1+ (NEGATIVE) H 07/31/17 23:51 Urine Glucose (UA) Negative (NEGATIVE) 07/31/17 23:51 Urine Ketones Negative (NEGATIVE) 07/31/17 23:51 Urine Blood 3+ (NEGATIVE) H 07/31/17 23:51 Urine Nitrite Negative (NEGATIVE) 07/31/17 23:51 Urine Bilirubin Negative (NEGATIVE) 07/31/17 23:51 Urine Urobilinogen Negative mg/dL (0.2-1.0) 07/31/17 23:51 Urine RBC 65 /hpf (0-3) 07/31/17 23:51 Urine WBC 7 /hpf (3-5) 07/31/17 23:51 Ur Epithelial Cells Few /hpf (FEW) 07/31/17 23:51 Calcium Oxalate Crystal Moderate /hpf (NONE SEEN) 07/31/17 23:51 Urine Mucus Many 07/31/17 23:51 RPR Titer Nonreactive (NONREACTIVE) 08/01/17 07:00 labs noted - Treatment Hospital Course: Detox Protocol Followed, Detoxed Safely, Responded well, Discharged Condition Good, Rehab Referral Accepted Patient has Accepted a Rehab Referral to: [facility] - Medication Discharge Medications: Ambulatory Orders Aspirin [Aspirin EC] 81 mg PO DAILY 04/28/14 Levetiracetam [Keppra -] 1,000 mg PO BID 09/03/16 Quetiapine Fumarate [Seroquel -] 200 mg PO HS #30 tab 03/09/17 Mirtazapine [Remeron -] 30 mg PO HS #30 tablet 03/10/17 Sertraline HCl [Zoloft -] 100 mg PO DAILY #30 tablet 03/10/17 Zolpidem Tartrate [Ambien] 10 mg PO HS #14 tablet MDD 10 03/10/17 Quetiapine Fumarate [Seroquel -] 50 mg PO HS #30 tablet 08/01/17 Quetiapine Fumarate [Seroquel -] 200 mg PO HS #30 tab 08/01/17 Sertraline HCl [Zoloft -] 50 mg PO DAILY #30 tablet 08/01/17 Sertraline HCl [Zoloft] 200 mg PO HS #30 tablet 08/01/17 - Diagnosis (1) Hepatitis C Status: Chronic Qualifiers: Viral hepatitis chronicity: chronic Hepatic coma status: without hepatic coma Qualified Code(s): B18.2 - Chronic viral hepatitis C (2) Nicotine dependence Status: Acute Qualifiers: Nicotine product type: cigarettes Substance use status: uncomplicated Qualified Code(s): F17.210 - Nicotine dependence, cigarettes, uncomplicated (3) Opioid dependence with withdrawal Status: Acute (4) Seizure disorder Status: Chronic (5) Uncomplicated sedative, hypnotic or anxiolytic withdrawal Status: Acute (6) Drug-induced mood disorder Status: Acute (7) Substance induced mood disorder Status: Acute (8) Substance-induced anxiety disorder Status: Suspected - AMA Did Patient Leave Against Medical Advice: No
--- NOTE | 2017-08-05 18:04 | HP ---
[facility] Rehab Assess/Revision - Admission History Ad[facility] Rehab [facility] - Vital signs Vital Signs: Vital Signs Period Temp Pulse Resp BP Sys/Nice Pulse Ox Last 24 Hr 97.0 F-97.9 F 64-86 16-18 80-109/50-70 - Findings Detox History & Physical reviewed: Yes Concur with findings: Yes
== END 2017-08-05 09:50 | disposition home or self-care (01) | DRG 773 ==
LOC: YASAS 13:41 → Y6N 16:40
PROVIDERS: ADMIT Internal Medicine; ATTEND Internal Medicine
PROC: HZ2ZZZZ Detoxification Services for Substance Abuse Treatment (ICD-10-PCS; principal; 2017-07-31)
DX: F11.23 Opioid dependence with withdrawal (principal); F13.230 Sedative, hypnotic or anxiolytic dependence with withdrawal, uncomplicated; F17.210 Nicotine dependence, cigarettes, uncomplicated; F15.10 Other stimulant abuse, uncomplicated; F19.24 Other psychoactive substance dependence with psychoactive substance-induced mood disorder; F19.280 Other psychoactive substance dependence with psychoactive substance-induced anxiety disorder; B18.2 Chronic viral hepatitis C; G40.509 Epileptic seizures related to external causes, not intractable, without status epilepticus
CPT/HCPCS: 36415; 80053; 81003; 81015; 85027; 86593; 93005; 93010

== ENCOUNTER 2017-12-12 12:21 | Inpatient (IN) | payer OTHER ==
[2017-12-12 15:20] VITALS: BMI 26.9
--- NOTE | 2017-12-12 18:09 | HP ---
COWS - Scale Resting Pulse: 2= [place] 101-120 Sweatin=Flushed/Facial Moisture Restless Observation: 3= Extraneous Movement Pupil Size: 1= Pupils >than Normal Bone or Joint Aches: 1= Mild Discomfort Runny Nose/ Eye Tearin= Runny Nose/Eyes GI Upset > 30mins: 2= Nausea/Diarrhea Tremor Observation: 2= Slight Tremor Visible Yawning Observation: 2= >3x During Session Anxiety or Irritability: 2=Irritable/Anxious Goose Flesh Skin: 3=Piloerection COWS Score: 22 CIWA Score - CIWA Score Nausea/Vomitin Muscle Tremors: 4-Moderate,w/Arms Extend Anxiety: 4-Mod. Anxious/Guarded Agitation: 2 Paroxysmal Sweats: 3 Orientation: 3-Disoriented Date>2 days Tacttile Disturbances: 2-Mild Itch/Numbness/Burn Auditory Disturbances: 0-None Visual Disturbances: 0-None Headache: 3-Moderate CIWA-Ar Total Score: 24 Admission [facility] Chief Complaint: withdrawal symptoms Allergies/Adverse Reactions: Allergies Allergy/AdvReac Type Severity Reaction Status Date / Time Fish Containing Products Allergy Intermediate Hives Verified 12/12/17 17:27 milk Allergy Intermediate Vomiting Verified 12/12/17 17:27 venom-honey bee Allergy Difficulty Verified 12/12/17 17:27 [bee venom (honey bee)] Breathing chlordiazepoxide HCl AdvReac Severe Vomiting Verified 12/12/17 17:27 [From Librium] History of Present Illness: 32 yo female with history of opiods, benzos and Alcohol dependence. Last detox Jul 2017. Longest period of sobriety 9 months. Exam Limitations: Physical Impairment (right hemiplegia post CVA , 2014) - Ebola screening Have you traveled outside of the country in the last 21 days: No Have you had contact with anyone from an Ebola affected area: No Have you been sick,other than usual withdrawal symptoms: No - Review of Systems Constitutional: Chills, Night Sweats, Changes in sleep, Weight Stable EENT: reports: Nose Congestion Respiratory: reports: No Symptoms reported Cardiac: reports: No Symptoms Reported GI: reports: Diarrhea, Nausea, Abdominal cramping : reports: No Symptoms Reported (no urinary symptoms reported) Musculoskeletal: reports: Joint Pain, Other (reports something black nail fell on her left great toe, saw her PCP and was given Mupirocin) Integumentary: reports: Sweating Neuro: reports: Headache (Hx seizure d/o) Endocrine: reports: Increased Thirst Hematology: reports: No Symptoms Reported Psychiatric: reports: Anxious, Depressed, other (AOxPP) Other Systems: Reviewed and Negative Patient History - Patient Medical History Hx Anemia: No Hx Asthma: No Hx Chronic Obstructive Pulmonary Disease (COPD): No Hx Cancer: No Hx Cardiac Disorders: No Hx Congestive Heart Failure: No Hx Hypertension: No Hx Hypercholesterolemia: No Hx Pacemaker: No HX Cerebrovascular Accident: Yes (STROKE X 3; RIGHT-SIDED WEAKNESS, 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 inhaled Arsenic) Hx Seizures: Yes (hx of seizure d/o ) Hx Dementia: No Hx Diabetes: No Hx Gastrointestinal Disorders: No Hx Liver Disease: Yes Hx Genitourinary Disorders: No Hx Sexually Transmitted Disorders: No Hx Renal Disease (ESRD): No Hx Thyroid Disease: No Hx Human Immunodeficiency Virus (HIV): No (last 2016 negative) Hx Hepatitis C: Yes (not treated) Hx Depression: No Hx Suicide Attempt: No Hx Bipolar Disorder: No Hx Schizophrenia: No - Patient Surgical History Past Surgical History: Yes Hx Neurologic Surgery: No Hx Cataract Extraction: No Hx Cardiac Surgery: Yes (SURGERY FOR PERICARDITIS IN 07/2013) Hx Lung Surgery: No Hx Breast Surgery: No Hx Breast Biopsy: No Hx Abdominal Surgery: Yes (EXP. LAPOROTOMY IN 07/2013 AT [facility] Hx Appendectomy: No Hx Cholecystectomy: No Hx Genitourinary Surgery: No Hx Section: No Hx Orthopedic Surgery: No Anesthesia Reaction: No - PPD History Previous Implant?: Yes Documented Results: Negative w/proof Implanted On Prior [facility] Admission?: Yes Date: 08/02/17 Results: 0.0 PPD to be Administered?: No - Reproductive History Patient is a Female of Child Bearing Age (11 -55 yrs old): Yes Last Menstrual Period: 12/10/17 Patient : No - Smoking Cessation Smoking history: Current every day smoker Have you smoked in the past 12 months: Yes Aproximately how many cigarettes per day: 10 Cigars Per Day: 0 Hx Chewing Tobacco Use: No Initiated information on smoking cessation: Yes 'Breaking Loose' booklet given: 12/12/17 - Substance & Tx. History Hx Alcohol Use: Yes Hx Substance Use: Yes Substance Use Type: Alcohol, Heroin, Opiates, Tranquilizers Hx Substance Use Treatment: Yes (Last detox Jul 2017) - Substances Abused Heroin Route: IV/ Inhal Frequency: Daily Amount used: 10 bags Age of first use: 20 Date of Last Use: 12/12/17 Alprazolam (Xanax) Route: Oral Frequency: Daily Amount used: 5-6 sticks Age of first use: 17 Date of Last Use: 12/12/17 Alcohol Route: Oral Frequency: Daily Amount used: 1 liter Vodka Age of first use: 1 Date of Last Use: 12/12/17 Klonopin Route: Oral Frequency: Daily Amount used: 2mg 5 to 6 pills Age of first use: 17 Date of Last Use: 12/12/17 Family Disease History - Family Disease History Family Disease History: [place]: Mother (Alcoholic; uterine/?cervical; dec), Other: Mother, Sister (LIVER DISEASE@16--) Admission Physical Exam [facility] - Vital Signs Vital Signs: Vital Signs - 24 hr 12/12/17 15:14 Temperature 95.9 F L Pulse Rate 108 H Respiratory 20 Rate Blood Pressure 96/68 - Physical General Appearance: Yes: Disheveled, Tremorous, Irritable, Anxious HEENTM: Yes: Hearing grossly Normal, Normal ENT Inspection, Normocephalic, Normal Voice, SRINIVASA, Pharynx Normal, Tm's normal Respiratory: Yes: Chest Non-Tender, Lungs Clear, Normal Breath Sounds, No Respiratory Distress, No Accessory Muscle Use Neck: Yes: Within Normal Limits, No masses,lesions,Nodules, Trachea in good position Breast: Yes: Breast Exam Deferred Cardiology: Yes: Regular Rhythm, Regular Rate, S1, S2 Abdominal: Yes: Within Normal Limits, Normal Bowel Sounds, Non Tender, Flat, Soft Genitourinary: Yes: Within Normal Limits (no urinary symptoms reported) Back: Yes: Normal Inspection Musculoskeletal: Yes: Joint Stiffness, Other (unsteady gait, decrease (R) ROM on upper and lower extremities, ambulates with a rollator) Extremities: Yes: Tremors, Other (black nail the left great toe) Neurological: Yes: Alert, Respond to painful stimul, Sensory Deficit (right hemiplegia r/t CVA), Depressed Affect, Other (AOxPP) Integumentary: Yes: Normal Color, Warm, Other (poor skin turgor) Lymphatic: Yes: Within Normal Limits - Diagnostic (1) Alcohol dependence with uncomplicated withdrawal Current Visit: No Status: Acute (2) Benzodiazepine dependence Current Visit: No Status: Acute (3) Nicotine dependence Current Visit: Yes Status: Chronic Qualifiers: Nicotine product type: cigarettes Substance use status: uncomplicated Qualified Code(s): F17.210 - Nicotine dependence, cigarettes, uncomplicated (4) Opioid dependence with withdrawal Current Visit: No Status: Acute (5) Hemiparesis affecting right side as late effect of cerebrovascular accident Current Visit: No Status: Chronic (6) Hepatitis C Current Visit: No Status: Chronic Qualifiers: Viral hepatitis chronicity: chronic Hepatic coma status: without hepatic coma Qualified Code(s): B18.2 - Chronic viral hepatitis C (7) Seizure disorder Current Visit: No Status: Chronic (8) Walker as ambulation aid Current Visit: No Status: Chronic Cleared for Admission [facility] - Detox or Rehab [facility] Level of Care: Medically Managed Detox Regimen/Protocol: Methadone/Valium [facility] Breath Alcohol Content Breath Alcohol Content: 0 Urine Pregancy Test - Result Urine Test Results: Negative- NO Line Present Urine Drug Screen - Results Drug Screen Negative: No Urine Drug Screen Results: OPI-Opiates, BZO-Benzodiazepines, MTD-Methadone, TCA- Tricyclic Antidepress, OXY-Oxycodone
[2017-12-12] MEDS ORDERED: IBUPROFEN 400 MG TABLET (FP) PO PRN (18:36)
[2017-12-12] MEDS ORDERED: guaiFENesin/D-METHORPHAN HB 10 ML UNIT-DOSE CUPS PO PRN (18:36)
[2017-12-12] MEDS ORDERED: METHADONE HCL 10 MG TABLET (FOR DETOX USE ONLY) PO ONE ×2 (18:36→23:00)
[2017-12-12] MEDS ORDERED: diazePAM 5 MG TABLET PO ONE (18:36)
[2017-12-12] MEDS ORDERED: ACETAMINOPHEN 325 MG TABLET (FP) PO PRN (18:36)
[2017-12-12] MEDS ORDERED: P-EPHED 60MG/TRIPROLIDI 2.5MG TABLET PO PRN (18:36)
[2017-12-12] MEDS ORDERED: LOPERAMIDE HCL 2 MG CAPSULE PO PRN (18:36)
[2017-12-12] MEDS ORDERED: NICOTINE POLACRILEX 2 MG GUM BUC PRN (18:36)
[2017-12-12] MEDS ORDERED: hydrOXYzine PAMOATE 50 MG CAPSULE (FP) PO PRN (18:36)
[2017-12-12] MEDS ORDERED: MAG HYDROX/AL HYDROX/SIMETH 30 ML UNIT-DOSE CUP PO PRN (18:36)
[2017-12-12] MEDS ORDERED: MAGNESIUM HYDROX 2400MG/30ML ORAL SUSPENSION 30 ML CUP PO PRN (18:36)
[2017-12-12] MEDS ORDERED: MENTHOL/PHENOL 1 EACH UD MM PRN (18:36)
[2017-12-12] MEDS ORDERED: MAGNESIUM CITRATE 300 ML BOTTLE PO PRN (18:36)
[2017-12-12 21:28] LABS: URINE APPEARANCE CLOUDY; URINE BILIRUBIN NEGATIVE (NEGATIVE); URINE BLOOD NEGATIVE (NEGATIVE); URINE COLOR YELLOW; URINE GLUCOSE (UA) NEGATIVE (NEGATIVE); URINE KETONE NEGATIVE (NEGATIVE); URINE NITRITE NEGATIVE (NEGATIVE); URINE PROTEIN NEGATIVE (NEGATIVE)
[2017-12-12 21:35] LABS: URINE LEUK ESTERASE 1+ (NEGATIVE)
[2017-12-12 21:44] LABS: EPI CELLS MANY /HPF (FEW); URINE BACTERIA RARE /hpf (NONE SEEN); URINE MUCUS RARE
[2017-12-12] MEDS ORDERED: METHADONE HCL 10 MG TABLET (FOR DETOX USE ONLY) ONE (21:51)
[2017-12-12] MEDS: THIAMINE HCL 100 MG TABLET (FP) PO SCH (21:56)
[2017-12-12] MEDS: levETIRAcetam 500 MG TABLET (FP) PO SCH (21:56)
[2017-12-12] MEDS: NICOTINE 21 MG/24 HOURS TOPICAL PATCH TD SCH (22:51)
[2017-12-12] MEDS: diazePAM 5 MG TABLET PO SCH (22:51)
[2017-12-13] MEDS: diazePAM 5 MG TABLET PO SCH ×3 (05:24→22:30)
[2017-12-13] MEDS: diazePAM 5 MG TABLET PO PRN ×2 (09:02→17:46)
[2017-12-13] MEDS ORDERED: METHADONE HCL 10 MG TABLET (FOR DETOX USE ONLY) PO SCH (10:00)
[2017-12-13 10:11] LABS: HEMATOCRIT 40.4 % (32.4-45.2); HEMOGLOBIN 12.6 GM/dL (10.7-15.3); MCH 28.3 pg (25.7-33.7); MCHC 31.3 g/dl (32.0-36.0); MEAN CELL VOLUME 90.4 fl (80-96); MEAN PLT VOLUME 9.5 fl (7.5-11.1); RBC 4.47 M/mm3 (3.60-5.2); RDW 17.2 % (11.6-15.6); WHITE BLOOD COUNT 5.2 K/mm3 (4.0-10.0)
[2017-12-13 10:21] LABS: CHLORIDE 100 mmol/L (98-107); POTASSIUM 3.9 mmol/L (3.5-5.1); SODIUM 138 mmol/L (136-145)
--- NOTE | 2017-12-13 10:24 | PN ---
[facility] CIWA - CIWA Score Nausea/Vomitin-Mild Nausea/No Vomiting Muscle Tremors: 4-Moderate,w/Arms Extend Anxiety: 4-Mod. Anxious/Guarded Agitation: 4-Moderately Restless Paroxysmal Sweats: 2 Orientation: 0-Oriented Tacttile Disturbances: 1-Very Mild Itch/Numbness Auditory Disturbances: 0-None Visual Disturbances: 0-None Headache: 2-Mild CIWA-Ar Total Score: 18 BHS Progress Note (SOAP) Subjective: headache sweat tremor anxiety Objective: 12/13/17 10:24 Vital Signs Temperature 97.0 F L 12/13/17 09:35 Pulse Rate 90 12/13/17 09:35 Respiratory Rate 18 12/13/17 09:35 Blood Pressure 125/73 12/13/17 09:35 O2 Sat by Pulse Oximetry (%) Laboratory Last Values Sodium 138 mmol/L (136-145) 12/13/17 05:45 Potassium 3.9 mmol/L (3.5-5.1) 12/13/17 05:45 Chloride 100 mmol/L (98-107) 12/13/17 05:45 Urine Color Yellow 12/12/17 20:00 Urine Appearance Cloudy 12/12/17 20:00 Urine pH 5.0 (5.0-8.0) 12/12/17 20:00 Ur Specific [place] 1.025 (1.001-1.035) 12/12/17 20:00 Urine Protein Negative (NEGATIVE) 12/12/17 20:00 Urine Glucose (UA) Negative (NEGATIVE) 12/12/17 20:00 Urine Ketones Negative (NEGATIVE) 12/12/17 20:00 Urine Blood Negative (NEGATIVE) 12/12/17 20:00 Urine Nitrite Negative (NEGATIVE) 12/12/17 20:00 Urine Bilirubin Negative (NEGATIVE) 12/12/17 20:00 Urine Urobilinogen 2.0 mg/dL (0.2-1.0) H 12/12/17 20:00 Ur Leukocyte Esterase 1+ (NEGATIVE) H 12/12/17 20:00 Urine WBC (Auto) 5 /hpf (3-5) 12/12/17 20:00 Urine RBC (Auto) 1 /hpf (0-3) 12/12/17 20:00 Ur Epithelial Cells Many /HPF (FEW) 01/24/18 20:00 Urine Bacteria Rare /hpf (NONE SEEN) 12/12/17 20:00 Urine Mucus Rare 12/12/17 20:00 lab noted Assessment: 12/13/17 10:24 withdrawal sx Plan: continue detox
[2017-12-13] MEDS: ASPIRIN COATED 81 MG TABLET.EC PO SCH (10:28)
[2017-12-13] MEDS: levETIRAcetam 500 MG TABLET (FP) PO SCH ×2 (10:28→22:30)
[2017-12-13] MEDS: PRENATAL VITAMINS W/ FOLIC ACID TABLET (FP) PO SCH (10:28)
[2017-12-13] MEDS: NICOTINE 21 MG/24 HOURS TOPICAL PATCH TD SCH (10:29)
--- NOTE | 2017-12-13 10:33 | EKG ---
Test Reason : Blood Pressure : / mmHG Vent. Rate : 084 BPM Atrial Rate : 084 BPM P-R Int : 172 ms QRS Dur : 082 ms QT Int : 394 ms P-R-T Axes : 056 005 032 degrees QTc Int : 465 ms NORMAL SINUS RHYTHM POSSIBLE INFERIOR INFARCT (CITED ON OR BEFORE 31-JUL-2017) ANTEROSEPTAL INFARCT (CITED ON OR BEFORE 31-JUL-2017) ABNORMAL ECG WHEN COMPARED WITH ECG OF 31-JUL-2017 16:28, QUESTIONABLE CHANGE IN INITIAL FORCES OF SEPTAL LEADS Confirmed by PATRICK GORE MD ([id number]) on 12/13/2017 10:33:21 AM Referred By: Confirmed By:PATRICK GORE MD
[2017-12-13 10:36] LABS: ALBUMIN 3.8 g/dl (3.4-5.0); ALK PHOS 104 U/L (45-117); ANION GAP 9 (8-16); BILIRUBIN,TOTAL 0.2 mg/dL (0.2-1.0); BLOOD UREA NITROGEN 14 mg/dL (7-18); CALCIUM 9.1 mg/dL (8.5-10.1); CO2 29 mmol/L (21-32); CREATININE 0.9 mg/dL (0.55-1.02); GLUCOSE,RANDOM 84 mg/dL (74-106); SGOT/AST 42 U/L (15-37); SGPT/ALT 57 U/L (12-78); TOT PROT 7.5 g/dl (6.4-8.2)
--- NOTE | 2017-12-13 10:36 | CONSULT ---
[facility] Psychiatric Consult - Data Date of interview: 12/13/17 Admission source: [facility] Identifying data: Pt is a 32 year old woman, mother of two, unemployed and on SSI. This is one of multiple admissions to [facility]. Pt. admitted to for benzodiazepine, alcohol, and opiate dependence. Substance Abuse History: Following information confirmed with Ms. Hansen: - Smoking Cessation. Smoking history: Current every day smoker. Have you smoked in the past 12 months: Yes. Aproximately how many cigarettes per day: 10. Cigars Per Day: 0. Hx Chewing Tobacco Use: No. Initiated information on smoking cessation: Yes. 'Breaking Loose' booklet given: 12/12/17. - Substance & Tx. History. Hx Alcohol Use: Yes. Hx Substance Use: Yes. Substance Use Type : Alcohol, Heroin, Opiates, Tranquilizers. Hx Substance Use Treatment: Yes ( Last detox Jul 2017). - Substances Abused. Heroin. Route: IV/ Inhal. Frequency: Daily. Amount used: 10 bags. Age of first use: 20. Date of Last Use: 12/12/17. Alprazolam (Xanax). Route: Oral. Frequency: Daily. Amount used: 5-6 sticks. Age of first use: 17. Date of Last Use: 12/12/17. Alcohol. Route: Oral. Frequency: Daily. Amount used: 1 liter Vodka. Age of first use: 1. Date of Last Use: 12/12/17. Klonopin. Route: Oral. Frequency: Daily. Amount used: 2mg 5 to 6 pills. Age of first use: 17. Date of Last Use: 12/12/17 Medical History: Seizures, Hep C, Stroke X3 Psychiatric History: Pt. denies h/o psychiatric hospitalization, OPC, and suicide attempt. States she is prescribed seroquel 100mg PO daily + Seroquel 300mg qhs from her Primary care physician for her "anger problems, anxiety and insomnia." Reports taking the prescribed dose for approximately 4 years. Pt. reports medication adherence. States she took her medications yesterday. Physical/Sexual Abuse/Trauma History: Denies. Mental Status Exam - Mental Status Exam Alert and Oriented to: Time, Place, Person Cognitive Function: Good Patient Appearance: Unkempt Mood: Withdrawn Affect: Normal Range Patient Behavior: Fatigued, Asleep (Pt. asleep and had to be awaken to complete interview.), Cooperative Speech Pattern: Delayed Voice Loudness: Moderately Soft/Quiet Thought Process: Goal Oriented Thought Disorder: Not Present Hallucinations: Denies Suicidal Ideation: Denies Homicidal Ideation: Denies Insight/Judgement: Poor Sleep: Poorly Appetite: Fair Muscle strength/Tone: Normal Gait/Station: Normal Psychiatric Findings - Problem List ([place] 1, 2,3) (1) Alcohol dependence with uncomplicated withdrawal Current Visit: Yes Status: Acute (2) Benzodiazepine dependence Current Visit: Yes Status: Acute (3) Opioid dependence with withdrawal Current Visit: Yes Status: Acute (4) Uncomplicated sedative, hypnotic or anxiolytic withdrawal Current Visit: Yes Status: Acute (5) Nicotine dependence Current Visit: Yes Status: Chronic Qualifiers: Nicotine product type: cigarettes Substance use status: uncomplicated Qualified Code(s): F17.210 - Nicotine dependence, cigarettes, uncomplicated (6) Substance induced mood disorder Current Visit: Yes Status: Acute - Initial Treatment Plan Initial Treatment Plan: Psychoeducation provided. Detoxification in progress. Seroquel 50mg po daily + Seroquel 200mg qhs ordered (reduce dosages ordered to decrease oversedation). Pt. agreeable with plan. Benefits and side effects discussed. Verbal consent given. Will continue to monitor patient.
--- NOTE | 2017-12-13 10:41 | PN ---
[facility] COWS - Scale Resting Pulse: 1= [place] 81-100 Sweatin= Chills/Flushing Restless Observation: 1= Difficult to Sit Still Pupil Size: 1= Pupils >than Normal Bone or Joint Aches: 2= Severe Diffuse Aches Runny Nose/ Eye Tearin= Runny Nose/Eyes GI Upset > 30mins: 2= Nausea/Diarrhea Tremor Observation of Outstretched Hands: 1= Tremor [place], Not Seen Yawning Observation: 2= >3x During Session Anxiety or Irritability: 2=Irritable/Anxious Goose Flesh Skin: 0=Smooth Skin COWS Score: 15
[2017-12-13] MEDS: LIDOCAINE 5% TOPICAL PATCH TP SCH (11:21)
[2017-12-13] MEDS ORDERED: FLU VACCINE QUAD 60 MCG/0.5 ML (MDV 17-18) IM ONE (12:00)
[2017-12-13 14:08] LABS: PLATELET COUNT 168 K/MM3 (134-434)
[2017-12-13] MEDS: QUEtiapine FUMARATE 200 MG TABLET PO SCH (22:30)
[2017-12-13] MEDS: THIAMINE HCL 100 MG TABLET (FP) PO SCH (22:30)
[2017-12-13] MEDS: LIDOCAINE PATCH REMOVAL MC SCH (22:41)
[2017-12-14] MEDS: diazePAM 5 MG TABLET PO PRN ×3 (05:46→18:26)
--- NOTE | 2017-12-14 09:48 | PN ---
[facility] Progress Note (SOAP) Subjective: nausea, sweats, interrupted sleep, anxiety, tremors Objective: 12/14/17 09:47 Vital Signs - 24 hr 12/13/17 12/13/17 12/13/17 13:10 17:47 21:57 Temperature 97.1 F L 96.8 F L 98.1 F Pulse Rate 85 85 85 Respiratory 18 18 18 Rate Blood Pressure 114/73 118/75 107/76 12/14/17 12/14/17 12/14/17 00:30 03:30 06:48 Temperature 98.1 F Pulse Rate 77 Respiratory 18 18 18 Rate Blood Pressure 142/53 12/14/17 09:24 Temperature 97.9 F Pulse Rate 95 H Respiratory 18 Rate Blood Pressure 105/67 Laboratory Tests 12/12/17 12/13/17 12/13/17 20:00 05:45 05:45 WBC 5.2 RBC 4.47 D Hgb 12.6 D Hct 40.4 D MCV 90.4 MCH 28.3 MCHC 31.3 L RDW 17.2 H Plt Count 168 MPV 9.5 Sodium 138 Potassium 3.9 Chloride 100 Carbon Dioxide 29 Anion Gap 9 BUN 14 Creatinine 0.9 Creat Clearance w eGFR > 60 Random Glucose 84 Calcium 9.1 Total Bilirubin 0.2 AST 42 H ALT 57 Alkaline Phosphatase 104 Total Protein 7.5 Albumin 3.8 Urine Color Yellow Urine Appearance Cloudy Urine pH 5.0 Ur Specific [place] 1.025 Urine Protein Negative Urine Glucose (UA) Negative Urine Ketones Negative Urine Blood Negative Urine Nitrite Negative Urine Bilirubin Negative Urine Urobilinogen 2.0 H Ur Leukocyte Esterase 1+ H Urine WBC (Auto) 5 Urine RBC (Auto) 1 Ur Epithelial Cells Many Urine Bacteria Rare Urine Mucus Rare RPR Titer HIV 1&2 Antibody Screen HIV P24 Antigen 12/13/17 12/13/17 05:45 06:00 WBC RBC Hgb Hct MCV MCH MCHC RDW Plt Count MPV Sodium Potassium Chloride Carbon Dioxide Anion Gap BUN Creatinine Creat Clearance w eGFR Random Glucose Calcium Total Bilirubin AST ALT Alkaline Phosphatase Total Protein Albumin Urine Color Urine Appearance Urine pH Ur Specific [place] Urine Protein Urine Glucose (UA) Urine Ketones Urine Blood Urine Nitrite Urine Bilirubin Urine Urobilinogen Ur Leukocyte Esterase Urine WBC (Auto) Urine RBC (Auto) Ur Epithelial Cells Urine Bacteria Urine Mucus RPR Titer Nonreactive HIV 1&2 Antibody Screen Negative HIV P24 Antigen Negative Assessment: 12/14/17 09:48 withdrawal sx, cotn detox, symptomatic relief, fluids, encourage ambulation
[2017-12-14] MEDS ORDERED: METHADONE HCL 5 MG TABLET (FOR DETOX USE ONLY) PO SCH (10:00)
[2017-12-14] MEDS ORDERED: QUEtiapine FUMARATE 50 MG TABLET PO SCH (10:00)
[2017-12-14] MEDS: NICOTINE 21 MG/24 HOURS TOPICAL PATCH TD SCH (10:23)
[2017-12-14] MEDS: diazePAM 5 MG TABLET PO SCH ×2 (10:23→22:37)
[2017-12-14] MEDS: levETIRAcetam 500 MG TABLET (FP) PO SCH ×2 (10:23→22:37)
[2017-12-14] MEDS: PRENATAL VITAMINS W/ FOLIC ACID TABLET (FP) PO SCH (10:23)
[2017-12-14] MEDS: ASPIRIN COATED 81 MG TABLET.EC PO SCH (10:23)
[2017-12-14] MEDS: LIDOCAINE 5% TOPICAL PATCH TP SCH (11:25)
[2017-12-14] MEDS: CYCLOBENZAPRINE HCL 5 MG TABLET PO SCH ×2 (14:20→22:37)
[2017-12-14] MEDS: THIAMINE HCL 100 MG TABLET (FP) PO SCH (22:37)
[2017-12-14] MEDS: QUEtiapine FUMARATE 200 MG TABLET PO SCH (22:37)
[2017-12-14] MEDS: LIDOCAINE PATCH REMOVAL MC SCH (22:56)
[2017-12-15] MEDS: CYCLOBENZAPRINE HCL 5 MG TABLET PO SCH (05:25)
[2017-12-15] MEDS: diazePAM 5 MG TABLET PO PRN (05:26)
[2017-12-15 06:42] VITALS: BP 108/73; PULSE 68; TEMP 97
--- NOTE | 2017-12-15 10:59 | DS ---
[facility] Detox Discharge Summary Admission Date: 12/12/17 Discharge Date: 12/15/17 - History Additional Comments: Received pt at nursing station stating she wanted to leave as her is downstairs to pick her. Refused education on need to stay. Pertinent Past History: Hemiparesis with R sided weakness Hepatitis C Seizure disorder - Physical Exam Results Vital Signs: Vital Signs Temperature 97.0 F L 12/15/17 06:00 Pulse Rate 68 12/15/17 06:00 Respiratory Rate 18 12/15/17 06:00 Blood Pressure 108/73 12/15/17 06:00 O2 Sat by Pulse Oximetry (%) Pertinent Admission Physical Exam Findings: Vital Signs Temperature 97.0 F L 12/15/17 06:00 Pulse Rate 68 12/15/17 06:00 Respiratory Rate 18 12/15/17 06:00 Blood Pressure 108/73 12/15/17 06:00 O2 Sat by Pulse Oximetry (%) Laboratory Last Values WBC 5.2 K/mm3 (4.0-10.0) 12/13/17 05:45 RBC 4.47 M/mm3 (3.60-5.2) D 12/13/17 05:45 Hgb 12.6 GM/dL (10.7-15.3) D 12/13/17 05:45 Hct 40.4 % (32.4-45.2) D 12/13/17 05:45 MCV 90.4 fl (80-96) 12/13/17 05:45 MCH 28.3 pg (25.7-33.7) 12/13/17 05:45 MCHC 31.3 g/dl (32.0-36.0) L 12/13/17 05:45 RDW 17.2 % (11.6-15.6) H 12/13/17 05:45 Plt Count 168 K/MM3 (134-434) 12/13/17 05:45 MPV 9.5 fl (7.5-11.1) 12/13/17 05:45 Sodium 138 mmol/L (136-145) 12/13/17 05:45 Potassium 3.9 mmol/L (3.5-5.1) 12/13/17 05:45 Chloride 100 mmol/L (98-107) 12/13/17 05:45 Carbon Dioxide 29 mmol/L (21-32) 12/13/17 05:45 Anion Gap 9 (8-16) 12/13/17 05:45 BUN 14 mg/dL (7-18) 12/13/17 05:45 Creatinine 0.9 mg/dL (0.55-1.02) 12/13/17 05:45 Creat Clearance w eGFR > 60 (>60) 12/13/17 05:45 Random Glucose 84 mg/dL (74-106) 12/13/17 05:45 Calcium 9.1 mg/dL (8.5-10.1) 12/13/17 05:45 Total Bilirubin 0.2 mg/dL (0.2-1.0) 12/13/17 05:45 AST 42 U/L (15-37) H 12/13/17 05:45 ALT 57 U/L (12-78) 12/13/17 05:45 Alkaline Phosphatase 104 U/L (45-117) 12/13/17 05:45 Total Protein 7.5 g/dl (6.4-8.2) 12/13/17 05:45 Albumin 3.8 g/dl (3.4-5.0) 12/13/17 05:45 Urine Color Yellow 12/12/17 20:00 Urine Appearance Cloudy 12/12/17 20:00 Urine pH 5.0 (5.0-8.0) 12/12/17 20:00 Ur Specific [place] 1.025 (1.001-1.035) 12/12/17 20:00 Urine Protein Negative (NEGATIVE) 12/12/17 20:00 Urine Glucose (UA) Negative (NEGATIVE) 12/12/17 20:00 Urine Ketones Negative (NEGATIVE) 12/12/17 20:00 Urine Blood Negative (NEGATIVE) 12/12/17 20:00 Urine Nitrite Negative (NEGATIVE) 12/12/17 20:00 Urine Bilirubin Negative (NEGATIVE) 12/12/17 20:00 Urine Urobilinogen 2.0 mg/dL (0.2-1.0) H 12/12/17 20:00 Ur Leukocyte Esterase 1+ (NEGATIVE) H 12/12/17 20:00 Urine WBC (Auto) 5 /hpf (3-5) 12/12/17 20:00 Urine RBC (Auto) 1 /hpf (0-3) 12/12/17 20:00 Ur Epithelial Cells Many /HPF (FEW) 12/12/17 20:00 Urine Bacteria Rare /hpf (NONE SEEN) 12/12/17 20:00 Urine Mucus Rare 12/12/17 20:00 RPR Titer Nonreactive (NONREACTIVE) 12/13/17 05:45 HIV 1&2 Antibody Screen Negative 12/13/17 06:00 HIV P24 Antigen Negative 12/13/17 06:00 - Medication Discharge Medications: Ambulatory Orders Aspirin [Aspirin EC] 81 mg PO DAILY 04/28/14 Levetiracetam [Keppra -] 1,000 mg PO BID 09/03/16 Quetiapine Fumarate [Seroquel -] 200 mg PO HS #30 tab 03/09/17 Mirtazapine [Remeron -] 30 mg PO HS #30 tablet 03/10/17 Zolpidem Tartrate [Ambien] 10 mg PO HS #14 tablet MDD 10 03/10/17 Sertraline HCl [Zoloft -] 50 mg PO DAILY #30 tablet 08/01/17 Sertraline HCl [Zoloft] 200 mg PO HS #30 tablet 08/01/17 Quetiapine Fumarate [Seroquel -] 50 mg PO DAILY 12/12/17 - AMA Did Patient Leave Against Medical Advice: Yes
[2017-12-16] MEDS ORDERED: diazePAM 5 MG TABLET PO SCH (10:00)
[2017-12-16] MEDS ORDERED: METHADONE HCL 10 MG TABLET (FOR DETOX USE ONLY) PO SCH (10:00)
[2017-12-17] MEDS ORDERED: METHADONE HCL 5 MG TABLET (FOR DETOX USE ONLY) PO SCH (06:00)
== END 2017-12-15 08:00 | disposition left against medical advice (07) | DRG 770 ==
LOC: YASAS 12:21 → Y6N 18:23
PROVIDERS: ADMIT Internal Medicine; ATTEND Internal Medicine
PROC: HZ2ZZZZ Detoxification Services for Substance Abuse Treatment (ICD-10-PCS; principal; 2017-12-12)
DX: F11.23 Opioid dependence with withdrawal (principal); F10.230 Alcohol dependence with withdrawal, uncomplicated; F13.230 Sedative, hypnotic or anxiolytic dependence with withdrawal, uncomplicated; F17.210 Nicotine dependence, cigarettes, uncomplicated; F19.24 Other psychoactive substance dependence with psychoactive substance-induced mood disorder; F19.280 Other psychoactive substance dependence with psychoactive substance-induced anxiety disorder; G40.909 Epilepsy, unspecified, not intractable, without status epilepticus; B18.2 Chronic viral hepatitis C; I69.351 Hemiplegia and hemiparesis following cerebral infarction affecting right dominant side; R26.2 Difficulty in walking, not elsewhere classified; Z99.89 Dependence on other enabling machines and devices; Z91.013 Allergy to seafood; Z91.011 Allergy to milk products
CPT/HCPCS: 36415; 80053; 81003; 81015; 85027; 86593; 87389; 90688; 93005; 93010

== ENCOUNTER 2018-03-30 11:43 | Inpatient (IN) | payer OTHER ==
[2018-03-30 13:18] VITALS: BMI 24.7
--- NOTE | 2018-03-30 15:11 | HP ---
COWS - Scale Resting Pulse: 2= [place] 101-120 Sweatin= Chills/Flushing Restless Observation: 1= Difficult to Sit Still Pupil Size: 0= Normal to Room Light Bone or Joint Aches: 1= Mild Discomfort Runny Nose/ Eye Tearin= Nasal Congestion GI Upset > 30mins: 1= Stomach Cramp Tremor Observation: 1= Tremor [place], Not Seen Yawning Observation: 1= 1-2x During Session Anxiety or Irritability: 1=Feels Anxious/Irritable Goose Flesh Skin: 0=Smooth Skin COWS Score: 10 CIWA Score - CIWA Score Nausea/Vomitin-Mild Nausea/No Vomiting Muscle Tremors: 4-Moderate,w/Arms Extend Anxiety: 4-Mod. Anxious/Guarded Agitation: 1-Slight > Activity Paroxysmal Sweats: 1-Minimal Palms Moist Orientation: 0-Oriented Tacttile Disturbances: 1-Very Mild Itch/Numbness Auditory Disturbances: 1-Very Mild Visual Disturbances: 1-Very Mild Sensitivity Headache: 1-Very Mild CIWA-Ar Total Score: 15 Admission ROS S - HPI Chief Complaint: I can't stop, I need help, I'm tired, maybe I need methadone Allergies/Adverse Reactions: Allergies Allergy/AdvReac Type Severity Reaction Status Date / Time Fish Containing Products Allergy Intermediate Hives Verified 03/30/18 14:39 milk Allergy Intermediate Vomiting Verified 03/30/18 14:39 venom-honey bee Allergy Difficulty Verified 03/30/18 14:39 [bee venom (honey bee)] Breathing chlordiazepoxide HCl AdvReac Severe Vomiting Verified 03/30/18 14:39 [From Librium] History of Present Illness: 33 yo woman here for detox from opiates, alcohol and benzodiazepine. Last here in November 2017 for detox but relapsed. History of seizures - last two weeks ago. Admits to recently using 's methadone to stop withdrawal symptoms and wishes to be on a program herself. This is one of many admissions. Exam Limitations: Clinical Condition - Ebola screening Have you traveled outside of the country in the last 21 days: No (N) Have you had contact with anyone from an Ebola affected area: No Have you been sick,other than usual withdrawal symptoms: No Do you have a fever: No - Review of Systems Constitutional: Chills, Loss of Appetite, Changes in sleep EENT: reports: Blurred Vision, Tearing, Nose Congestion Respiratory: reports: No Symptoms reported Cardiac: reports: No Symptoms Reported GI: reports: Poor Appetite, Indigestion, Abdominal cramping : reports: Dysuria Musculoskeletal: reports: Back Pain, Muscle Pain Integumentary: reports: No Symptoms Reported Neuro: reports: Headache Endocrine: reports: No Symptoms Reported Hematology: reports: No Symptoms Reported Psychiatric: reports: Judgement Intact, Mood/Affect Appropiate, Anxious Other Systems: Reviewed and Negative Patient History - Patient Medical History Hx Anemia: No Hx Asthma: No Hx Chronic Obstructive Pulmonary Disease (COPD): No Hx Cancer: No Hx Cardiac Disorders: No Hx Congestive Heart Failure: No Hx Hypertension: No Hx Hypercholesterolemia: No Hx Pacemaker: No HX Cerebrovascular Accident: Yes (STROKE X 3; RIGHT-SIDED WEAKNESS, 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 inhaled Arsenic) Hx Seizures: Yes (hx of seizure last one Mar 19 2018) Hx Dementia: No Hx Diabetes: No Hx Gastrointestinal Disorders: No Hx Liver Disease: Yes Hx Genitourinary Disorders: No Hx Sexually Transmitted Disorders: No Hx Renal Disease (ESRD): No Hx Thyroid Disease: No Hx Human Immunodeficiency Virus (HIV): No (last 2016 negative) Hx Hepatitis C: Yes (not treated) Hx Depression: Yes (denies but on meds) Hx Suicide Attempt: No Hx Bipolar Disorder: No Hx Schizophrenia: No - Patient Surgical History Past Surgical History: Yes Hx Neurologic Surgery: No Hx Cataract Extraction: No Hx Cardiac Surgery: Yes (SURGERY FOR PERICARDITIS IN 07/2013) Hx Lung Surgery: No Hx Breast Surgery: No Hx Breast Biopsy: No Hx Abdominal Surgery: Yes (EXP. LAPOROTOMY IN 07/2013 AT [facility] Hx Appendectomy: No Hx Cholecystectomy: No Hx Genitourinary Surgery: No Hx Section: No Hx Orthopedic Surgery: No Anesthesia Reaction: No - PPD History Previous Implant?: Yes Documented Results: Negative w/proof Implanted On Prior R Admission?: Yes Date: 08/02/17 Results: 0.0 PPD to be Administered?: No - Reproductive History Patient is a Female of Child Bearing Age (11 -55 yrs old): Yes Last Menstrual Period: 03/27/18 Patient : No - Smoking Cessation Smoking history: Current every day smoker Have you smoked in the past 12 months: Yes Aproximately how many cigarettes per day: 20 Cigars Per Day: 0 Hx Chewing Tobacco Use: No Initiated information on smoking cessation: Yes 'Breaking Loose' booklet given: 03/30/18 (give on floor) - Substance & Tx. History Hx Alcohol Use: Yes Hx Substance Use: Yes Substance Use Type: Alcohol, Heroin, Tranquilizers Hx Substance Use Treatment: Yes (detox, rehab) - Substances Abused Heroin Route: Injection Frequency: Daily Amount used: 10 BAGS DAILY Age of first use: 24 Date of Last Use: 03/30/18 Alprazolam (Xanax) Route: Inhalation Frequency: Daily Amount used: 4 MG TABLET DAILY Age of first use: 15 Date of Last Use: 03/30/18 Alcohol Route: Oral Frequency: Daily Amount used: 1 LITER OF VODKA DAILY Age of first use: 2 Date of Last Use: 03/30/18 Non-Rx Methadone Route: Oral Amount used: 50mg Age of first use: 33 Date of Last Use: 03/28/18 (just started doing it ) Family Disease History - Family Disease History Family Disease History: [place]: Mother (, allcoholic; uterine/?cervical; dec ), Other: Father (no contact), Mother, Brother (two - living - healthy), Sister (one -liver; two living healthy), Son (age 16 - healthy), Daughter ( age 18 - healthy) Admission Physical Exam [facility] - Vital Signs Vital Signs: Vital Signs - 24 hr 03/30/18 13:16 Temperature 97.6 F Pulse Rate 121 H Respiratory 21 Rate Blood Pressure 139/91 - Physical General Appearance: Yes: Nourished, Appropriately Dressed, Moderate Distress, Irritable, Anxious HEENTM: Yes: EOMI, Hearing grossly Normal, Normocephalic, Normal Voice, Pharynx Normal, Nasal Congestion, Rhinorrhea Respiratory: Yes: Normal Breath Sounds, No Respiratory Distress Neck: Yes: No masses,lesions,Nodules, Supple Breast: Yes: Breast Exam Deferred Cardiology: Yes: Regular Rhythm, Regular Rate Abdominal: Yes: Non Tender, Flat Genitourinary: Yes: Frequency Back: Yes: Normal Inspection Musculoskeletal: Yes: Other (right sided weakness; right arm contracture) Extremities: Yes: Other (right sided weakness, right arm contracture- unable to straighten or life arm) Neurological: Yes: Alert, Normal Mood/Affect, Normal Response Integumentary: Yes: Normal Color, Dry, Warm, Track [place] (right hand - no overt abscess - noted bruising) Lymphatic: Yes: Within Normal Limits - Diagnostic (1) Alcohol dependence with uncomplicated withdrawal Current Visit: Yes Status: Chronic (2) Opioid dependence with withdrawal Current Visit: Yes Status: Chronic (3) Uncomplicated sedative, hypnotic or anxiolytic withdrawal Current Visit: Yes Status: Chronic (4) Hemiparesis affecting right side as late effect of cerebrovascular accident Current Visit: Yes Status: Chronic (5) Hepatitis C Current Visit: Yes Status: Chronic Qualifiers: Viral hepatitis chronicity: chronic Hepatic coma status: without hepatic coma Qualified Code(s): B18.2 - Chronic viral hepatitis C Comment: not treated (6) Nicotine dependence Current Visit: Yes Status: Chronic Qualifiers: Nicotine product type: cigarettes Substance use status: uncomplicated Qualified Code(s): F17.210 - Nicotine dependence, cigarettes, uncomplicated (7) Seizure disorder Current Visit: Yes Status: Chronic (8) Needs minimal help in wheelchair Current Visit: Yes Status: Chronic (9) Impaired mobility Current Visit: Yes Status: Chronic Comment: able to propel self in wheelchair Cleared for Admission [facility] - Detox or Rehab [facility] Level of Care: Medically Managed Detox Regimen/Protocol: Methadone/Valium [facility] Breath Alcohol Content Breath Alcohol Content: 0.389 Urine Pregancy Test - Result Urine Test Results: Negative- NO Line Present Urine Drug Screen - Results Drug Screen Negative: No Urine Drug Screen Results: OPI-Opiates, MTD-Methadone
[2018-03-30] MEDS ORDERED: MAG HYDROX/AL HYDROX/SIMETH 30 ML UNIT-DOSE CUP PO PRN (15:22)
[2018-03-30] MEDS ORDERED: P-EPHED 60MG/TRIPROLIDI 2.5MG TABLET PO PRN (15:22)
[2018-03-30] MEDS ORDERED: LOPERAMIDE HCL 2 MG CAPSULE PO PRN (15:22)
[2018-03-30] MEDS ORDERED: guaiFENesin/D-METHORPHAN HB 10 ML UNIT-DOSE CUPS PO PRN (15:22)
[2018-03-30] MEDS ORDERED: MAGNESIUM CITRATE 300 ML BOTTLE PO PRN (15:22)
[2018-03-30] MEDS ORDERED: MENTHOL/PHENOL 1 EACH UD MM PRN (15:22)
[2018-03-30] MEDS ORDERED: diazePAM 5 MG TABLET PO ONE (15:22)
[2018-03-30] MEDS ORDERED: METHADONE HCL 10 MG TABLET (FOR DETOX USE ONLY) PO ONE ×2 (15:22→23:00)
[2018-03-30] MEDS ORDERED: MAGNESIUM HYDROX 2400MG/30ML ORAL SUSPENSION 30 ML CUP PO PRN (15:22)
[2018-03-30] MEDS ORDERED: ACETAMINOPHEN 325 MG TABLET (FP) PO PRN (15:22)
[2018-03-30] MEDS: NICOTINE 21 MG/24 HOURS TOPICAL PATCH TD SCH (16:38)
[2018-03-30 16:51] LABS: URINE APPEARANCE TURBID; URINE BILIRUBIN NEGATIVE (<2.0 mg/dL); URINE COLOR YELLOW; URINE GLUCOSE (UA) NEGATIVE (NEGATIVE); URINE KETONE TRACE (NEGATIVE); URINE LEUK ESTERASE NEGATIVE (NEGATIVE); URINE NITRITE POSITIVE (NEGATIVE)
[2018-03-30 16:52] LABS: URINE PROTEIN 1+ (NEGATIVE)
[2018-03-30 17:01] LABS: EPI CELLS RARE /HPF (FEW); URINE BACTERIA RARE /hpf (NONE SEEN); URINE MUCUS RARE
[2018-03-30] MEDS: hydrOXYzine PAMOATE 25 MG CAPSULE (FP) PO PRN (19:12)
[2018-03-30] MEDS: diazePAM 5 MG TABLET PO PRN (20:54)
[2018-03-30] MEDS ORDERED: MELATONIN 5 MG TABLETS PO PRN (22:00)
[2018-03-30] MEDS: levETIRAcetam 500 MG TABLET (FP) PO SCH (22:34)
[2018-03-30] MEDS: diazePAM 5 MG TABLET PO SCH (22:34)
[2018-03-30] MEDS: THIAMINE HCL 100 MG TABLET (FP) PO SCH (22:34)
[2018-03-31] MEDS: diazePAM 5 MG TABLET PO PRN ×5 (03:01→19:48)
[2018-03-31] MEDS: diazePAM 5 MG TABLET PO SCH ×3 (05:27→22:24)
[2018-03-31] MEDS ORDERED: METHADONE HCL 10 MG TABLET (FOR DETOX USE ONLY) PO SCH (10:00)
[2018-03-31 10:16] LABS: HEMATOCRIT 38.9 % (32.4-45.2); HEMOGLOBIN 13.3 GM/dL (10.7-15.3); MCH 29.7 pg (25.7-33.7); MCHC 34.1 g/dl (32.0-36.0); MEAN PLT VOLUME 8.4 fl (7.5-11.1); PLATELET COUNT 289 K/MM3 (134-434); RBC 4.48 M/mm3 (3.60-5.2); RDW 15.8 % (11.6-15.6); WHITE BLOOD COUNT 6.8 K/mm3 (4.0-10.0)
[2018-03-31 10:23] LABS: ALBUMIN 3.7 g/dl (3.4-5.0); CHLORIDE 102 mmol/L (98-107); POTASSIUM 3.9 mmol/L (3.5-5.1); SODIUM 140 mmol/L (136-145)
[2018-03-31 10:27] LABS: ALK PHOS 89 U/L (45-117); ANION GAP 7 (8-16); BILIRUBIN,TOTAL 0.4 mg/dL (0.2-1.0); BLOOD UREA NITROGEN 11 mg/dL (7-18); CALCIUM 8.9 mg/dL (8.5-10.1); CO2 31 mmol/L (21-32); CREATININE 0.7 mg/dL (0.55-1.02); GLUCOSE,RANDOM 85 mg/dL (74-106); SGOT/AST 27 U/L (15-37); SGPT/ALT 23 U/L (12-78); TOT PROT 6.9 g/dl (6.4-8.2)
[2018-03-31] MEDS ORDERED: ONDANSETRON *ODT* 4 MG TABLET SL PRN (10:48)
[2018-03-31] MEDS ORDERED: CYCLOBENZAPRINE HCL 10 MG TABLET (FP) PO PRN (10:56)
[2018-03-31] MEDS: levETIRAcetam 500 MG TABLET (FP) PO SCH ×2 (10:57→22:24)
[2018-03-31] MEDS: PRENATAL VITAMINS W/ FOLIC ACID TABLET (FP) PO SCH (10:57)
[2018-03-31] MEDS: NICOTINE 21 MG/24 HOURS TOPICAL PATCH TD SCH (10:58)
[2018-03-31] MEDS: ASPIRIN COATED 81 MG TABLET.EC PO SCH (10:58)
--- NOTE | 2018-03-31 13:27 | EKG ---
Test Reason : Blood Pressure : / mmHG Vent. Rate : 092 BPM Atrial Rate : 098 BPM P-R Int : 000 ms QRS Dur : 088 ms QT Int : 390 ms P-R-T Axes : 068 003 079 degrees QTc Int : 482 ms SINUS RHYTHM WITH 2ND DEGREE A-V BLOCK (MOBITZ I) SEPTAL INFARCT (CITED ON OR BEFORE 31-JUL-2017) POSSIBLE INFERIOR INFARCT (CITED ON OR BEFORE 31-JUL-2017) T WAVE ABNORMALITY, CONSIDER ANTEROLATERAL ISCHEMIA ABNORMAL ECG WHEN COMPARED WITH ECG OF 12-DEC-2017 20:59, SINUS RHYTHM IS NOW WITH 2ND DEGREE A-V BLOCK (MOBITZ I) QUESTIONABLE CHANGE IN INITIAL FORCES OF ANTERIOR LEADS INVERTED T WAVES HAVE REPLACED NONSPECIFIC T WAVE ABNORMALITY IN ANTERIOR LEADS Confirmed by SARAH TANNER, DANIEL ([id number]) on 03/31/2018 1:27:25 PM Referred By: Confirmed By:DANIEL SMITH MD
--- NOTE | 2018-03-31 14:24 | PN ---
[facility] CIWA - CIWA Score Nausea/Vomitin Muscle Tremors: 3 Anxiety: 3 Agitation: 3 Paroxysmal Sweats: 3 Orientation: 0-Oriented Tacttile Disturbances: 1-Very Mild Itch/Numbness Auditory Disturbances: 0-None Headache: 2-Mild BHS COWS - Scale Resting Pulse: 0= [place] 80 or Below Sweatin= Chills/Flushing Restless Observation: 3= Extraneous Movement Pupil Size: 0= Normal to Room Light Bone or Joint Aches: 2= Severe Diffuse Aches Runny Nose/ Eye Tearin= Runny Nose/Eyes GI Upset > 30mins: 2= Nausea/Diarrhea Tremor Observation of Outstretched Hands: 2= Slight Tremor Visible Yawning Observation: 1= 1-2x During Session Anxiety or Irritability: 2=Irritable/Anxious Goose Flesh Skin: 0=Smooth Skin COWS Score: 15 [facility] Progress Note (SOAP) Subjective: Tremor, interrupted sleep, n/v/d, left leg cramp Objective: 03/31/18 14:22 Last Vital Signs Temp Pulse Resp BP Pulse Ox 97.1 F L 78 18 133/79 03/31/18 13:57 03/31/18 13:57 03/31/18 13:57 03/31/18 13:57 Laboratory Tests 03/30/18 03/31/18 03/31/18 09:15 08:00 08:00 WBC 6.8 D RBC 4.48 Hgb 13.3 Hct 38.9 MCV 87.0 MCH 29.7 MCHC 34.1 RDW 15.8 H Plt Count 289 D MPV 8.4 D Sodium Potassium Chloride Carbon Dioxide Anion Gap BUN Creatinine Creat Clearance w eGFR Random Glucose Calcium Total Bilirubin AST ALT Alkaline Phosphatase Total Protein Albumin Urine Color Yellow Urine Appearance Turbid Urine pH 5.0 Ur Specific [place] 1.027 Urine Protein 1+ H Urine Glucose (UA) Negative Urine Ketones Trace H Urine Blood Negative Urine Nitrite Positive Urine Bilirubin Negative Urine Urobilinogen 2.0 H Ur Leukocyte Esterase Negative Urine WBC (Auto) 60 Urine RBC (Auto) 1 Ur Epithelial Cells Rare Urine Bacteria Rare Urine Mucus Rare RPR Titer HIV 1&2 Antibody Screen Negative HIV P24 Antigen Negative 03/31/18 03/31/18 08:00 08:00 WBC RBC Hgb Hct MCV MCH MCHC RDW Plt Count MPV Sodium 140 Potassium 3.9 Chloride 102 Carbon Dioxide 31 Anion Gap 7 L BUN 11 Creatinine 0.7 Creat Clearance w eGFR > 60 Random Glucose 85 Calcium 8.9 Total Bilirubin 0.4 D AST 27 ALT 23 Alkaline Phosphatase 89 Total Protein 6.9 Albumin 3.7 Urine Color Urine Appearance Urine pH Ur Specific [place] Urine Protein Urine Glucose (UA) Urine Ketones Urine Blood Urine Nitrite Urine Bilirubin Urine Urobilinogen Ur Leukocyte Esterase Urine WBC (Auto) Urine RBC (Auto) Ur Epithelial Cells Urine Bacteria Urine Mucus RPR Titer Nonreactive HIV 1&2 Antibody Screen HIV P24 Antigen Labs reviewed: UA shows UTI Assessment: 03/31/18 14:24 Withdrawal symptoms Noted with Acute UTI Plan: Continue detox Flexeril 10mg PO TID prn for muscle spasm/leg cramp Zofran 4mg SL q8hr prn for n/v Acute UTI: encouraged to drink lots of water for hydration Send urine culture Ciprofloxacin 500mg PO Q12 hr x 3 days
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
[2018-03-31] MEDS: hydrOXYzine PAMOATE 25 MG CAPSULE (FP) PO PRN (17:10)
[2018-03-31] MEDS: NICOTINE POLACRILEX 4 MG GUM BC PRN ×2 (17:11→19:48)
--- NOTE | 2018-03-31 21:49 | EKG ---
Test Reason : Blood Pressure : / mmHG Vent. Rate : 078 BPM Atrial Rate : 078 BPM P-R Int : 156 ms QRS Dur : 078 ms QT Int : 390 ms P-R-T Axes : 058 -10 098 degrees QTc Int : 444 ms NORMAL SINUS RHYTHM LOW VOLTAGE QRS SEPTAL INFARCT (CITED ON OR BEFORE 31-JUL-2017) POSSIBLE INFERIOR INFARCT (CITED ON OR BEFORE 31-JUL-2017) T WAVE ABNORMALITY, CONSIDER ANTERIOR ISCHEMIA ABNORMAL ECG WHEN COMPARED WITH ECG OF 30-MAR-2018 17:08, QT HAS SHORTENED Confirmed by DANIEL SMITH MD ([id number]) on 03/31/2018 9:49:14 PM Referred By: Confirmed By:DANIEL SMITH MD
[2018-03-31] MEDS: QUEtiapine FUMARATE 200 MG TABLET PO SCH (22:24)
[2018-03-31] MEDS: THIAMINE HCL 100 MG TABLET (FP) PO SCH (22:24)
[2018-04-01] MEDS: diazePAM 5 MG TABLET PO PRN ×5 (02:21→20:34)
--- NOTE | 2018-04-01 09:52 | PN ---
[facility] CIWA - CIWA Score Nausea/Vomitin Muscle Tremors: 3 Anxiety: 3 Agitation: 2 Paroxysmal Sweats: 1-Minimal Palms Moist Orientation: 0-Oriented Tacttile Disturbances: 1-Very Mild Itch/Numbness Auditory Disturbances: 1-Very Mild Visual Disturbances: 0-None Headache: 2-Mild CIWA-Ar Total Score: 16 [facility]HS COWS - Scale Resting Pulse: 2= [place] 101-120 Sweatin= Chills/Flushing Restless Observation: 3= Extraneous Movement Pupil Size: 1= Pupils >than Normal Bone or Joint Aches: 2= Severe Diffuse Aches Runny Nose/ Eye Tearin= Runny Nose/Eyes GI Upset > 30mins: 3= Vomiting/Diarrhea Tremor Observation of Outstretched Hands: 2= Slight Tremor Visible Yawning Observation: 1= 1-2x During Session Anxiety or Irritability: 2=Irritable/Anxious Goose Flesh Skin: 0=Smooth Skin COWS Score: 19 [facility] Progress Note (SOAP) Subjective: ALERT,IRRITABLE,ANXIOUS,PAIN IN THE BODY AND BACK,OLD CVA WITH RIGHT HENIPARESIS ,PAIN IN THE LEFT LEG USING LIDODERM PATCH DAILY Objective: 04/01/18 09:49 Vital Signs Temperature 97.3 F L 04/01/18 07:14 Pulse Rate 91 H 04/01/18 07:14 Respiratory Rate 20 04/01/18 07:14 Blood Pressure 114/70 04/01/18 07:14 O2 Sat by Pulse Oximetry (%) Vital Signs Temperature 97.3 F L 04/01/18 07:14 Pulse Rate 91 H 04/01/18 07:14 Respiratory Rate 20 04/01/18 07:14 Blood Pressure 114/70 04/01/18 07:14 O2 Sat by Pulse Oximetry (%) Laboratory Last Values WBC 6.8 K/mm3 (4.0-10.0) D 03/31/18 08:00 RBC 4.48 M/mm3 (3.60-5.2) 03/31/18 08:00 Hgb 13.3 GM/dL (10.7-15.3) 03/31/18 08:00 Hct 38.9 % (32.4-45.2) 03/31/18 08:00 MCV 87.0 fl (80-96) 03/31/18 08:00 MCH 29.7 pg (25.7-33.7) 03/31/18 08:00 MCHC 34.1 g/dl (32.0-36.0) 03/31/18 08:00 RDW 15.8 % (11.6-15.6) H 03/31/18 08:00 Plt Count 289 K/MM3 (134-434) D 03/31/18 08:00 MPV 8.4 fl (7.5-11.1) D 03/31/18 08:00 Sodium 140 mmol/L (136-145) 03/31/18 08:00 Potassium 3.9 mmol/L (3.5-5.1) 03/31/18 08:00 Chloride 102 mmol/L (98-107) 03/31/18 08:00 Carbon Dioxide 31 mmol/L (21-32) 03/31/18 08:00 Anion Gap 7 (8-16) L 03/31/18 08:00 BUN 11 mg/dL (7-18) 03/31/18 08:00 Creatinine 0.7 mg/dL (0.55-1.02) 03/31/18 08:00 Creat Clearance w eGFR > 60 (>60) 03/31/18 08:00 Random Glucose 85 mg/dL (74-106) 03/31/18 08:00 Calcium 8.9 mg/dL (8.5-10.1) 03/31/18 08:00 Total Bilirubin 0.4 mg/dL (0.2-1.0) D 03/31/18 08:00 AST 27 U/L (15-37) 03/31/18 08:00 ALT 23 U/L (12-78) 03/31/18 08:00 Alkaline Phosphatase 89 U/L (45-117) 03/31/18 08:00 Total Protein 6.9 g/dl (6.4-8.2) 03/31/18 08:00 Albumin 3.7 g/dl (3.4-5.0) 03/31/18 08:00 Urine Color Yellow 03/30/18 09:15 Urine Appearance Turbid 03/30/18 09:15 Urine pH 5.0 (5.0-8.0) 03/30/18 09:15 Ur Specific [place] 1.027 (1.001-1.035) 03/30/18 09:15 Urine Protein 1+ (NEGATIVE) H 03/30/18 09:15 Urine Glucose (UA) Negative (NEGATIVE) 03/30/18 09:15 Urine Ketones Trace (NEGATIVE) H 03/30/18 09:15 Urine Blood Negative (NEGATIVE) 03/30/18 09:15 Urine Nitrite Positive (NEGATIVE) 03/30/18 09:15 Urine Bilirubin Negative (<2.0 mg/dL) 03/30/18 09:15 Urine Urobilinogen 2.0 mg/dL (0.2-1.0) H 03/30/18 09:15 Ur Leukocyte Esterase Negative (NEGATIVE) 03/30/18 09:15 Urine WBC (Auto) 60 /hpf (3-5) 03/30/18 09:15 Urine RBC (Auto) 1 /hpf (0-3) 03/30/18 09:15 Ur Epithelial Cells Rare /HPF (FEW) 03/30/18 09:15 Urine Bacteria Rare /hpf (NONE SEEN) 03/30/18 09:15 Urine Mucus Rare 03/30/18 09:15 RPR Titer Nonreactive (NONREACTIVE) 03/31/18 08:00 HIV 1&2 Antibody Screen Negative 03/31/18 08:00 HIV P24 Antigen Negative 03/31/18 08:00 Assessment: 04/01/18 09:50 WITHDRAWAL SYMPTOM Plan: CONTINUE DETOX,URINE FOR C/S,BACTRIM DS 1 TAB PO BID
[2018-04-01] MEDS: PRENATAL VITAMINS W/ FOLIC ACID TABLET (FP) PO SCH (10:33)
[2018-04-01] MEDS: METHADONE HCL 5 MG TABLET (FOR DETOX USE ONLY) PO SCH (10:34)
[2018-04-01] MEDS: levETIRAcetam 500 MG TABLET (FP) PO SCH ×2 (10:34→22:16)
[2018-04-01] MEDS: NICOTINE 21 MG/24 HOURS TOPICAL PATCH TD SCH (10:34)
[2018-04-01] MEDS: ASPIRIN COATED 81 MG TABLET.EC PO SCH (10:34)
[2018-04-01] MEDS: diazePAM 5 MG TABLET PO SCH ×2 (10:34→22:16)
[2018-04-01] MEDS: QUEtiapine FUMARATE 50 MG TABLET PO SCH (10:36)
[2018-04-01] MEDS ORDERED: FLU VACCINE QUAD 60 MCG/0.5 ML (MDV 17-18) IM ONE (12:00)
[2018-04-01] MEDS: LIDOCAINE 5% TOPICAL PATCH TP SCH (12:14)
[2018-04-01] MEDS: NICOTINE POLACRILEX 4 MG GUM BC PRN ×2 (12:30→20:35)
[2018-04-01] MEDS: THIAMINE HCL 100 MG TABLET (FP) PO SCH (22:16)
[2018-04-01] MEDS: QUEtiapine FUMARATE 200 MG TABLET PO SCH (22:16)
[2018-04-01] MEDS: LIDOCAINE PATCH REMOVAL MC SCH (22:42)
[2018-04-02] MEDS: diazePAM 5 MG TABLET PO PRN ×4 (00:31→13:04)
[2018-04-02] MEDS: NICOTINE POLACRILEX 4 MG GUM BC PRN (08:36)
--- NOTE | 2018-04-02 10:34 | PN ---
S Progress Note (SOAP) Subjective: ALERT,IRRITABLE,PAIN IN THE BODY AND BACK,LEG, Objective: 04/02/18 10:33 Vital Signs Temperature 97.5 F L 04/02/18 08:47 Pulse Rate 112 H 04/02/18 08:47 Respiratory Rate 18 04/02/18 08:47 Blood Pressure 123/75 04/02/18 08:47 O2 Sat by Pulse Oximetry (%) Assessment: 04/02/18 10:33 WITHDRAWAL SYMPTOM Plan: CONTINUE DETOX,URINE FOR C/S PENDING
[2018-04-02] MEDS: METHADONE HCL 5 MG TABLET (FOR DETOX USE ONLY) PO SCH (10:53)
[2018-04-02] MEDS: diazePAM 5 MG TABLET PO SCH ×2 (10:53→22:06)
[2018-04-02] MEDS: levETIRAcetam 500 MG TABLET (FP) PO SCH ×2 (10:54→22:06)
[2018-04-02] MEDS: PRENATAL VITAMINS W/ FOLIC ACID TABLET (FP) PO SCH (10:54)
[2018-04-02] MEDS: QUEtiapine FUMARATE 50 MG TABLET PO SCH (10:54)
[2018-04-02] MEDS: ASPIRIN COATED 81 MG TABLET.EC PO SCH (10:54)
[2018-04-02] MEDS: LIDOCAINE 5% TOPICAL PATCH TP SCH (10:55)
[2018-04-02] MEDS: NICOTINE 21 MG/24 HOURS TOPICAL PATCH TD SCH (10:55)
[2018-04-02] MEDS: hydrOXYzine PAMOATE 25 MG CAPSULE (FP) PO PRN (17:12)
[2018-04-02] MEDS: LIDOCAINE PATCH REMOVAL MC SCH (22:06)
[2018-04-02] MEDS: THIAMINE HCL 100 MG TABLET (FP) PO SCH (22:06)
[2018-04-02] MEDS: QUEtiapine FUMARATE 200 MG TABLET PO SCH (22:06)
[2018-04-03] MEDS ORDERED: METHADONE HCL 10 MG TABLET (FOR DETOX USE ONLY) PO SCH (10:00)
[2018-04-03] MEDS ORDERED: diazePAM 5 MG TABLET PO SCH (10:00)
[2018-04-03 10:08] VITALS: BP 121/92; PULSE 121; TEMP 96.6
[2018-04-03] MEDS: ASPIRIN COATED 81 MG TABLET.EC PO SCH (10:17)
[2018-04-03] MEDS: PRENATAL VITAMINS W/ FOLIC ACID TABLET (FP) PO SCH (10:18)
[2018-04-03] MEDS: levETIRAcetam 500 MG TABLET (FP) PO SCH (10:18)
[2018-04-03] MEDS: QUEtiapine FUMARATE 50 MG TABLET PO SCH (10:18)
[2018-04-03] MEDS: NICOTINE 21 MG/24 HOURS TOPICAL PATCH TD SCH (10:19)
[2018-04-03] MEDS: LIDOCAINE 5% TOPICAL PATCH TP SCH (10:19)
--- NOTE | 2018-04-03 10:46 | PN ---
S Progress Note (SOAP) Subjective: ALERT,NO COMPLAINT Objective: 04/03/18 10:44 Vital Signs Temperature 96.6 F L 04/03/18 10:07 Pulse Rate 121 H 04/03/18 10:07 Respiratory Rate 18 04/03/18 10:07 Blood Pressure 121/92 04/03/18 10:07 O2 Sat by Pulse Oximetry (%) PATIENT IS STABLE FOR DISCHARGE TODAY,WOULD LIKE TO LEAVE DUE TO FAMILY ISSUE 04/03/18 10:46 URINE FOR C/S SHOWED Assessment: 04/03/18 10:45 NO WITHDRAWAL SYMPTOM 04/03/18 10:46 URINE FOR C/S SHOWED LACTOSE FERMENTING NEGATIVE BACILLI HAS BEEN ON LEVAQUIN 500 MGS PO DAILY Plan: DISCHARGE TODAY,FOLLOW UP WITH AFTER CARE PROGRAM ARRANGEMENT
--- NOTE | 2018-04-03 10:53 | DS ---
[facility] Detox Discharge Summary Admission Date: 03/30/18 Discharge Date: 04/03/18 - History Present History: Alcohol Dependence, Opioid Dependence, Sedative Dependence Additional Comments: FOLLOW UP WITH AFTER CARE PROGRAM ARRANGEMENT Pertinent Past History: OLD CVA WITH RIGHT HEMIPARESIS HEPATITIS C AMBULATION WITH WALKER UTI - Physical Exam Results Vital Signs: Vital Signs Temperature 96.6 F L 04/03/18 10:07 Pulse Rate 121 H 04/03/18 10:07 Respiratory Rate 18 04/03/18 10:07 Blood Pressure 121/92 04/03/18 10:07 O2 Sat by Pulse Oximetry (%) Pertinent Admission Physical Exam Findings: WITHDRAWAL SIGNS AND SYMPTOM - Treatment Hospital Course: Detox Protocol Followed, Responded well, Discharged Condition Good Patient has Accepted a Rehab Referral to: DECLINED - Medication Discharge Medications: Ambulatory Orders Aspirin [Aspirin EC] 81 mg PO DAILY 04/28/14 levETIRAcetam [Keppra -] 1,000 mg PO BID 09/03/16 Quetiapine Fumarate [Seroquel -] 50 mg PO DAILY 03/30/18 Quetiapine Fumarate [Seroquel -] 200 mg PO HS 03/30/18 - Diagnosis (1) Opioid dependence with withdrawal Current Visit: Yes Status: Acute (2) Alcohol dependence with uncomplicated withdrawal Current Visit: Yes Status: Acute (3) UTI (urinary tract infection) Current Visit: Yes Status: Acute (4) Uncomplicated sedative, hypnotic or anxiolytic withdrawal Current Visit: Yes Status: Acute (5) Hepatitis C Current Visit: Yes Status: Chronic Qualifiers: Viral hepatitis chronicity: chronic Hepatic coma status: without hepatic coma Qualified Code(s): B18.2 - Chronic viral hepatitis C (6) Nicotine dependence Current Visit: Yes Status: Chronic Qualifiers: Nicotine product type: cigarettes Substance use status: uncomplicated Qualified Code(s): F17.210 - Nicotine dependence, cigarettes, uncomplicated (7) Seizure disorder Current Visit: Yes Status: Chronic (8) Hemiparesis affecting right side as late effect of cerebrovascular accident Current Visit: No Status: Chronic (9) Walker as ambulation aid Current Visit: No Status: Chronic - AMA Did Patient Leave Against Medical Advice: No
[2018-04-04] MEDS ORDERED: METHADONE HCL 5 MG TABLET (FOR DETOX USE ONLY) PO SCH (06:00)
== END 2018-04-03 12:30 | disposition home or self-care (01) | DRG 773 ==
LOC: YASAS 11:43 → Y6N 15:19
PROVIDERS: ADMIT Surgery; ATTEND Surgery
PROC: HZ2ZZZZ Detoxification Services for Substance Abuse Treatment (ICD-10-PCS; principal; 2018-03-30)
DX: F11.23 Opioid dependence with withdrawal (principal); F10.230 Alcohol dependence with withdrawal, uncomplicated; F13.230 Sedative, hypnotic or anxiolytic dependence with withdrawal, uncomplicated; F17.210 Nicotine dependence, cigarettes, uncomplicated; F19.280 Other psychoactive substance dependence with psychoactive substance-induced anxiety disorder; F19.24 Other psychoactive substance dependence with psychoactive substance-induced mood disorder; I10 Essential (primary) hypertension; N39.0 Urinary tract infection, site not specified; B18.2 Chronic viral hepatitis C; G40.909 Epilepsy, unspecified, not intractable, without status epilepticus; I69.351 Hemiplegia and hemiparesis following cerebral infarction affecting right dominant side; R26.2 Difficulty in walking, not elsewhere classified; Z99.89 Dependence on other enabling machines and devices; Z91.013 Allergy to seafood; Z91.038 Other insect allergy status; Z91.011 Allergy to milk products
CPT/HCPCS: 36415; 80053; 81003; 81015; 85027; 86593; 87086; 87186; 87389; 93005; 93010; Q0162

== ENCOUNTER 2018-05-10 11:33 | Inpatient (IN) | payer OTHER ==
[2018-05-10 12:13] VITALS: BMI 26.6
--- NOTE | 2018-05-10 12:56 | HP ---
COWS - Scale Resting Pulse: 1= [place] 81-100 Sweatin= Chills/Flushing Restless Observation: 1= Difficult to Sit Still Pupil Size: 1= Pupils >than Normal Bone or Joint Aches: 1= Mild Discomfort Runny Nose/ Eye Tearin= Runny Nose/Eyes GI Upset > 30mins: 2= Nausea/Diarrhea Tremor Observation: 2= Slight Tremor Visible Yawning Observation: 1= 1-2x During Session Anxiety or Irritability: 2=Irritable/Anxious Goose Flesh Skin: 3=Piloerection COWS Score: 17 CIWA Score - CIWA Score Nausea/Vomitin Muscle Tremors: 2 Anxiety: 3 Agitation: 3 Paroxysmal Sweats: 2 Orientation: 0-Oriented Tacttile Disturbances: 0-None Auditory Disturbances: 1-Very Mild Visual Disturbances: 1-Very Mild Sensitivity Headache: 2-Mild CIWA-Ar Total Score: 17 Admission ROS BHS - HPI Chief Complaint: heroin, xanax and alcohol withdrawal symptoms Allergies/Adverse Reactions: Allergies Allergy/AdvReac Type Severity Reaction Status Date / Time Fish Containing Products Allergy Intermediate Hives Verified 05/10/18 12:12 milk Allergy Intermediate Vomiting Verified 05/10/18 12:12 venom-honey bee Allergy Difficulty Verified 05/10/18 12:12 [bee venom (honey bee)] Breathing chlordiazepoxide HCl AdvReac Severe Vomiting Verified 05/10/18 12:12 [From Librium] History of Present Illness: 33 yo female with hx of nicotine, xanax, IV heroin, and alcohol dependence is here seeking detox, this is one of multiple admissions. Last detox [facility] 03/30/18 -04/03/18. PMHX: right CVA, wheelchair dependent, anxiety and depression . Denies suicidal /homicidal ideation, hx suicidal attempts. Longest period of sobriety 1 year. Exam Limitations: No Limitations - Ebola screening Have you traveled outside of the country in the last 21 days: No (N) Have you had contact with anyone from an Ebola affected area: No Have you been sick,other than usual withdrawal symptoms: No Do you have a fever: No - Review of Systems Constitutional: Chills, Diaphoresis, Loss of Appetite, Changes in sleep, Unintentional Wgt. Loss (5 lbs) EENT: reports: Nose Congestion, Other (runny nose) Respiratory: reports: No Symptoms reported Cardiac: reports: No Symptoms Reported GI: reports: Diarrhea, Nausea, Poor Appetite, Poor Fluid Intake, Vomiting, Abdominal cramping Integumentary: reports: No Symptoms Reported Neuro: reports: Headache Endocrine: reports: Increased Thirst Hematology: reports: See HPI Psychiatric: reports: Orientated x3, Anxious Other Systems: Reviewed and Negative Patient History - Patient Medical History Hx Anemia: No Hx Asthma: No Hx Chronic Obstructive Pulmonary Disease (COPD): No Hx Cancer: No Hx Cardiac Disorders: Yes Hx Congestive Heart Failure: No Hx Hypertension: No Hx Hypercholesterolemia: No Hx Pacemaker: No HX Cerebrovascular Accident: Yes (STROKE X 3; RIGHT-SIDED WEAKNESS, 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 inhaled Arsenic) Hx Seizures: Yes (last seizure was 1 month ago.) Hx Dementia: No Hx Diabetes: No Hx Gastrointestinal Disorders: No Hx Liver Disease: Yes Hx Genitourinary Disorders: No Hx Sexually Transmitted Disorders: No Hx Renal Disease (ESRD): No Hx Thyroid Disease: No Hx Human Immunodeficiency Virus (HIV): No (last 2016 negative, declines testing ) Hx Hepatitis C: Yes (not treated) Hx Depression: No Hx Suicide Attempt: No Hx Bipolar Disorder: No Hx Schizophrenia: No - Patient Surgical History Past Surgical History: Yes Hx Neurologic Surgery: No Hx Cataract Extraction: No Hx Cardiac Surgery: Yes (SURGERY FOR PERICARDITIS IN 07/2013) Hx Lung Surgery: No Hx Breast Surgery: No Hx Breast Biopsy: No Hx Abdominal Surgery: Yes (EXP. LAPOROTOMY IN 07/2013 AT [facility] Hx Appendectomy: No Hx Cholecystectomy: No Hx Genitourinary Surgery: No Hx Section: No Hx Orthopedic Surgery: No Anesthesia Reaction: No - PPD History Previous Implant?: Yes Documented Results: Negative w/proof Implanted On Prior [facility] Admission?: Yes Date: 08/02/17 Results: 0 MM PPD to be Administered?: No - Reproductive History Last Menstrual Period: 04/26/18 Patient : No - Smoking Cessation Smoking history: Current every day smoker Have you smoked in the past 12 months: Yes Aproximately how many cigarettes per day: 20 Cigars Per Day: 0 Hx Chewing Tobacco Use: No Initiated information on smoking cessation: Yes 'Breaking Loose' booklet given: 05/10/18 - Substance & Tx. History Hx Alcohol Use: Yes Hx Substance Use: Yes Substance Use Type: Alcohol, Heroin, Opiates, Tranquilizers - Substances Abused Heroin Route: Inhalation Frequency: Daily Amount used: 10 BAGS Age of first use: 20 Date of Last Use: 05/10/18 Alcohol Route: Oral Frequency: Daily Amount used: 1 LITER VODKA Age of first use: 1 Date of Last Use: 05/10/18 Alprazolam (Xanax) Route: Oral Frequency: Daily Amount used: 2-10MG Age of first use: 15 Date of Last Use: 05/10/18 Family Disease History - Family Disease History Family Disease History: CA: Mother (, allcoholic; uterine/?cervical; dec ), Other: Father (no contact), Mother, Brother (two - living - healthy), Sister (one -liver; two living healthy), Son (age 16 - healthy), Daughter ( age 18 - healthy) Admission Physical Exam [facility] - Vital Signs Vital Signs: Vital Signs - 24 hr 05/10/18 12:11 Temperature 99.0 F Pulse Rate 90 Respiratory 18 Rate Blood Pressure 127/77 - Physical General Appearance: Yes: Disheveled, Moderate Distress, Alcohol on Breath, Anxious HEENTM: Yes: EOMI, Hearing grossly Normal, Normal ENT Inspection, Normocephalic , Normal Voice, SRINIVASA, Tm's normal, Rhinorrhea Respiratory: Yes: Chest Non-Tender, Lungs Clear, Normal Breath Sounds, No Respiratory Distress, No Accessory Muscle Use Neck: Yes: No masses,lesions,Nodules, Trachea in good position Breast: Yes: Breast Exam Deferred Cardiology: Yes: Regular Rhythm, Regular Rate Abdominal: Yes: Normal Bowel Sounds, Non Tender, Flat, Soft Genitourinary: Yes: Within Normal Limits Back: Yes: Normal Inspection Musculoskeletal: Yes: full range of Motion, Gait Steady, Pelvis Stable, Back pain, Other (wheelchair user) Extremities: Yes: Normal Capillary Refill, Normal Inspection, Normal Range of Motion, Non-Tender Neurological: Yes: svp of digital II-XII NML intact, Fully Oriented, Alert, Motor Strength 5/5, Depressed Affect Integumentary: Yes: Normal Color, Warm, Diaphoresis Lymphatic: Yes: Within Normal Limits - Diagnostic (1) Dependent for wheelchair mobility Current Visit: Yes Status: Chronic (2) Alcohol dependence with uncomplicated withdrawal Current Visit: Yes Status: Acute (3) Opioid dependence with withdrawal Current Visit: Yes Status: Acute (4) Uncomplicated sedative, hypnotic or anxiolytic withdrawal Current Visit: Yes Status: Acute (5) Anxiety Current Visit: Yes Status: Chronic (6) Hemiparesis affecting right side as late effect of cerebrovascular accident Current Visit: Yes Status: Chronic (7) Nicotine dependence Current Visit: Yes Status: Chronic Qualifiers: Nicotine product type: cigarettes Substance use status: uncomplicated Qualified Code(s): F17.210 - Nicotine dependence, cigarettes, uncomplicated (8) Seizure disorder Current Visit: Yes Status: Acute Cleared for Admission [facility] - Detox or Rehab [facility] Level of Care: Medically Managed Detox Regimen/Protocol: Methadone/Valium [facility] Breath Alcohol Content Breath Alcohol Content: 0.099 Urine Pregancy Test - Result Urine Test Results: Negative- NO Line Present Urine Drug Screen - Results Drug Screen Negative: No Urine Drug Screen Results: OPI-Opiates, BZO-Benzodiazepines, MTD-Methadone
[2018-05-10] MEDS ORDERED: METHADONE HCL 10 MG TABLET (FOR DETOX USE ONLY) PO ONE ×3 (13:03→23:00)
[2018-05-10] MEDS ORDERED: MAGNESIUM CITRATE 300 ML BOTTLE PO PRN (13:03)
[2018-05-10] MEDS ORDERED: MAG HYDROX/AL HYDROX/SIMETH 30 ML UNIT-DOSE CUP PO PRN (13:03)
[2018-05-10] MEDS ORDERED: hydrOXYzine PAMOATE 50 MG CAPSULE (FP) PO PRN (13:03)
[2018-05-10] MEDS ORDERED: IBUPROFEN 400 MG TABLET (FP) PO PRN (13:03)
[2018-05-10] MEDS ORDERED: MENTHOL/PHENOL 1 EACH UD MM PRN (13:03)
[2018-05-10] MEDS ORDERED: P-EPHED 60MG/TRIPROLIDI 2.5MG TABLET PO PRN (13:03)
[2018-05-10] MEDS ORDERED: NICOTINE POLACRILEX 2 MG GUM BUC PRN (13:03)
[2018-05-10] MEDS ORDERED: LOPERAMIDE HCL 2 MG CAPSULE PO PRN (13:03)
[2018-05-10] MEDS ORDERED: ACETAMINOPHEN 325 MG TABLET (FP) PO PRN (13:03)
[2018-05-10] MEDS ORDERED: guaiFENesin/D-METHORPHAN HB 10 ML UNIT-DOSE CUPS PO PRN (13:03)
[2018-05-10] MEDS ORDERED: MAGNESIUM HYDROX 2400MG/30ML ORAL SUSPENSION 30 ML CUP PO PRN (13:03)
[2018-05-10] MEDS ORDERED: diazePAM 5 MG TABLET PO ONE (14:05)
[2018-05-10] MEDS: ASPIRIN COATED 81 MG TABLET.EC PO SCH (15:20)
[2018-05-10] MEDS: diazePAM 5 MG TABLET PO SCH ×2 (15:21→22:20)
--- NOTE | 2018-05-10 16:46 | CONSULT ---
[facility] Psychiatric Consult - Data Date of interview: 05/10/18 Admission source: [facility] Identifying data: Patient is a 33 year old female, mother of two, unemployed, domiciled and resides with . This is one multiple admissions for patient. Pt. admitted to for opiate dependence. Substance Abuse History: Smoking Cessation. Smoking history: Current every day smoker. Have you smoked in the past 12 months: Yes. Aproximately how many cigarettes per day: 20. Cigars Per Day: 0. Hx Chewing Tobacco Use: No. Initiated information on smoking cessation: Yes. 'Breaking Loose' booklet given : 05/10/18. - Substance & Tx. History. Hx Alcohol Use: Yes. Hx Substance Use : Yes. Substance Use Type: Alcohol, Heroin, Opiates, Tranquilizers. - Substances Abused. Heroin. Route: Inhalation. Frequency: Daily. Amount used: 10 BAGS. Age of first use: 20. Date of Last Use: 05/10/18. Alcohol. Route: Oral. Frequency: Daily. Amount used: 1 LITER VODKA. Age of first use : 1. Date of Last Use: 05/10/18. Alprazolam (Xanax). Route: Oral. Frequency: Daily. Amount used: 2-10MG. Age of first use: 15. Date of Last Use : 05/10/18 Medical History: Strokes (three strokes in total) Seizures, Psychiatric History: Patient denies h/o psychiatric hospitalization. Patient's first psychiatric contact was at 20 while on a detox facility. OPD is provided in [place] by her PCP whom patient states is also a psychiatrist. Diagnosis unknown. Pt. is prescribed seroquel 200mg qhs + Seroquel 50mg PO daily. States she receives her medications due to her restlessness. Pt. denies h/o suicide attempts. Pt. reports poor sleep. Physical/Sexual Abuse/Trauma History: Denies. Mental Status Exam - Mental Status Exam Alert and Oriented to: Time, Place, Person Cognitive Function: Good Patient Appearance: Well Groomed Mood: Hopeful Affect: Mood Congruent Patient Behavior: Appropriate, Cooperative Speech Pattern: Appropriate Voice Loudness: Normal Thought Process: Intact, Goal Oriented Thought Disorder: Not Present Hallucinations: Denies Suicidal Ideation: Denies Homicidal Ideation: Denies Insight/Judgement: Poor Sleep: Poorly Appetite: Fair Muscle strength/Tone: Mild Hypertonicity Gait/Station: Other (Patient demonstrates difficulty walking due to stroke. Pt. usually uses her wheelchair to move arouund on unit.) Psychiatric Findings - Problem List ([place] 1, 2,3) (1) Alcohol dependence with uncomplicated withdrawal Current Visit: Yes Status: Acute (2) Opioid dependence with withdrawal Current Visit: Yes Status: Acute (3) Seizure disorder Current Visit: Yes Status: Acute (4) Uncomplicated sedative, hypnotic or anxiolytic withdrawal Current Visit: Yes Status: Acute (5) Dependent for wheelchair mobility Current Visit: Yes Status: Chronic (6) Nicotine dependence Current Visit: Yes Status: Chronic Qualifiers: Nicotine product type: cigarettes Substance use status: uncomplicated Qualified Code(s): F17.210 - Nicotine dependence, cigarettes, uncomplicated (7) Insomnia Current Visit: Yes Status: Acute (8) Substance-induced anxiety disorder Current Visit: Yes Status: Suspected - Initial Treatment Plan Initial Treatment Plan: Psychoeducation provided. Detoxification in progress. Seroquel 150mg qhs (reduce dosage) + Seroquel 50mg PO daily. Benefits and side effects discussed. Verbal consent given. Will continue to monitor.
[2018-05-10] MEDS ORDERED: ONDANSETRON *ODT* 4 MG TABLET SL PRN (17:31)
--- NOTE | 2018-05-10 17:36 | PN ---
S Progress Note Note: c/o vomiting. Denies abdominal pain. Vital Signs - 24 hr 05/10/18 12:11 Temperature 99.0 F Pulse Rate 90 Respiratory 18 Rate Blood Pressure 127/77 Give Tigan now and Zofran prn for nausea/vomiting. Notify provider for any abdominal pain or fever.
[2018-05-10] MEDS ORDERED: TRIMETHOBENZAMIDE HCL 200MG/2ML INJ IM ONE (18:00)
[2018-05-10] MEDS: diazePAM 5 MG TABLET PO PRN (19:42)
[2018-05-10 19:50] LABS: URINE APPEARANCE CLOUDY; URINE BILIRUBIN NEGATIVE (<2.0 mg/dL); URINE COLOR YELLOW; URINE GLUCOSE (UA) NEGATIVE (NEGATIVE); URINE KETONE NEGATIVE (NEGATIVE); URINE LEUK ESTERASE NEGATIVE (NEGATIVE); URINE NITRITE NEGATIVE (NEGATIVE); URINE UROBILINOGEN NEGATIVE mg/dL (0.2-1.0)
[2018-05-10 19:53] LABS: URINE PROTEIN 1+ (NEGATIVE)
[2018-05-10 19:59] LABS: EPI CELLS FEW /HPF (FEW); URINE MUCUS RARE
[2018-05-10] MEDS ORDERED: MELATONIN 5 MG TABLETS PO PRN (22:00)
[2018-05-10] MEDS: QUEtiapine FUMARATE 50 MG TABLET PO SCH (22:19)
[2018-05-10] MEDS: THIAMINE HCL 100 MG TABLET (FP) PO SCH (22:19)
[2018-05-10] MEDS: levETIRAcetam 500 MG TABLET (FP) PO SCH (22:20)
[2018-05-11] MEDS: diazePAM 5 MG TABLET PO SCH ×3 (06:02→22:17)
[2018-05-11] MEDS ORDERED: METHADONE HCL 10 MG TABLET (FOR DETOX USE ONLY) PO SCH (10:00)
[2018-05-11] MEDS: EMTRICITABINE 200MG/TENOFOVIR 300MG PO SCH (10:35)
[2018-05-11] MEDS: QUEtiapine FUMARATE 50 MG TABLET PO SCH ×2 (10:36→22:15)
[2018-05-11] MEDS: PRENATAL VITAMINS W/ FOLIC ACID TABLET (FP) PO SCH (10:36)
[2018-05-11] MEDS: ASPIRIN COATED 81 MG TABLET.EC PO SCH (10:36)
[2018-05-11] MEDS: levETIRAcetam 500 MG TABLET (FP) PO SCH ×2 (10:36→22:15)
[2018-05-11 10:37] LABS: HEMATOCRIT 38.6 % (32.4-45.2); HEMOGLOBIN 12.8 GM/dL (10.7-15.3); MCH 29.1 pg (25.7-33.7); MCHC 33.1 g/dl (32.0-36.0); MEAN CELL VOLUME 88.1 fl (80-96); MEAN PLT VOLUME 8.9 fl (7.5-11.1); PLATELET COUNT 192 K/MM3 (134-434); RBC 4.38 M/mm3 (3.60-5.2); RDW 16.8 % (11.6-15.6)
[2018-05-11] MEDS: diazePAM 5 MG TABLET PO PRN ×2 (10:37→17:58)
[2018-05-11] MEDS: NICOTINE 14 MG/24 HOURS TOPICAL PATCH TD SCH (10:40)
[2018-05-11 10:42] LABS: ALBUMIN 3.2 g/dl (3.4-5.0); ALK PHOS 68 U/L (45-117); ANION GAP 10 (8-16); BILIRUBIN,TOTAL 0.8 mg/dL (0.2-1.0); BLOOD UREA NITROGEN 15 mg/dL (7-18); CALCIUM 8.2 mg/dL (8.5-10.1); CHLORIDE 106 mmol/L (98-107); CO2 24 mmol/L (21-32); CREATININE 0.8 mg/dL (0.55-1.02); GLUCOSE,RANDOM 98 mg/dL (74-106); POTASSIUM 3.7 mmol/L (3.5-5.1); SGOT/AST 39 U/L (15-37); SODIUM 140 mmol/L (136-145); TOT PROT 6.5 g/dl (6.4-8.2)
[2018-05-11 10:44] LABS: SGPT/ALT 27 U/L (12-78)
--- NOTE | 2018-05-11 17:26 | PN ---
S CIWA - CIWA Score Nausea/Vomitin Muscle Tremors: 2 Anxiety: 2 Agitation: 2 Paroxysmal Sweats: 2 Orientation: 0-Oriented Tacttile Disturbances: 2-Mild Itch/Numbness/Burn Auditory Disturbances: 1-Very Mild Visual Disturbances: 0-None Headache: 2-Mild CIWA-Ar Total Score: 15 BHS COWS - Scale Resting Pulse: 0= [place] 80 or Below Sweatin= Chills/Flushing Restless Observation: 1= Difficult to Sit Still Pupil Size: 0= Normal to Room Light Bone or Joint Aches: 2= Severe Diffuse Aches Runny Nose/ Eye Tearin= Runny Nose/Eyes GI Upset > 30mins: 2= Nausea/Diarrhea Tremor Observation of Outstretched Hands: 2= Slight Tremor Visible Yawning Observation: 1= 1-2x During Session Anxiety or Irritability: 2=Irritable/Anxious Goose Flesh Skin: 3=Piloerection COWS Score: 16 S Progress Note (SOAP) Subjective: Tremors, sweats, abdominal cramps, interrupted sleep Objective: 05/11/18 17:26 Vital Signs - 8 hr 05/11/18 05/11/18 10:50 15:07 Temperature 97.7 F 96.6 F L Pulse Rate 83 86 Respiratory 18 18 Rate Blood Pressure 129/86 128/75 Laboratory Last Values WBC 5.0 K/mm3 (4.0-10.0) 05/11/18 08:00 RBC 4.38 M/mm3 (3.60-5.2) 05/11/18 08:00 Hgb 12.8 GM/dL (10.7-15.3) 05/11/18 08:00 Hct 38.6 % (32.4-45.2) 05/11/18 08:00 MCV 88.1 fl (80-96) 05/11/18 08:00 MCH 29.1 pg (25.7-33.7) 05/11/18 08:00 MCHC 33.1 g/dl (32.0-36.0) 05/11/18 08:00 RDW 16.8 % (11.6-15.6) H 05/11/18 08:00 Plt Count 192 K/MM3 (134-434) D 05/11/18 08:00 MPV 8.9 fl (7.5-11.1) 05/11/18 08:00 Sodium 140 mmol/L (136-145) 05/11/18 08:00 Potassium 3.7 mmol/L (3.5-5.1) 05/11/18 08:00 Chloride 106 mmol/L (98-107) 05/11/18 08:00 Carbon Dioxide 24 mmol/L (21-32) 05/11/18 08:00 Anion Gap 10 (8-16) 05/11/18 08:00 BUN 15 mg/dL (7-18) 05/11/18 08:00 Creatinine 0.8 mg/dL (0.55-1.02) 05/11/18 08:00 Creat Clearance w eGFR > 60 (>60) 05/11/18 08:00 Random Glucose 98 mg/dL (74-106) 05/11/18 08:00 Calcium 8.2 mg/dL (8.5-10.1) L 05/11/18 08:00 Total Bilirubin 0.8 mg/dL (0.2-1.0) 05/11/18 08:00 AST 39 U/L (15-37) H 05/11/18 08:00 ALT 27 U/L (12-78) 05/11/18 08:00 Alkaline Phosphatase 68 U/L (45-117) 05/11/18 08:00 Total Protein 6.5 g/dl (6.4-8.2) 05/11/18 08:00 Albumin 3.2 g/dl (3.4-5.0) L 05/11/18 08:00 Urine Color Yellow 05/10/18 16:13 Urine Appearance Cloudy 05/10/18 16:13 Urine pH 6.0 (5.0-8.0) 05/10/18 16:13 Ur Specific [place] 1.017 (1.001-1.035) 05/10/18 16:13 Urine Protein 1+ (NEGATIVE) H 05/10/18 16:13 Urine Glucose (UA) Negative (NEGATIVE) 05/10/18 16:13 Urine Ketones Negative (NEGATIVE) 05/10/18 16:13 Urine Blood Negative (NEGATIVE) 05/10/18 16:13 Urine Nitrite Negative (NEGATIVE) 05/10/18 16:13 Urine Bilirubin Negative (<2.0 mg/dL) 05/10/18 16:13 Urine Urobilinogen Negative mg/dL (0.2-1.0) 05/10/18 16:13 Ur Leukocyte Esterase Negative (NEGATIVE) 05/10/18 16:13 Urine WBC (Auto) 3 /hpf (3-5) 05/10/18 16:13 Urine RBC (Auto) 1 /hpf (0-3) 05/10/18 16:13 Ur Epithelial Cells Few /HPF (FEW) 05/10/18 16:13 Urine Mucus Rare 05/10/18 16:13 Labs noted Assessment: 05/11/18 17:26 Withdrawal sx Plan: Continue detox
[2018-05-11] MEDS: THIAMINE HCL 100 MG TABLET (FP) PO SCH (22:15)
[2018-05-12] MEDS: diazePAM 5 MG TABLET PO PRN ×2 (06:25→15:04)
[2018-05-12] MEDS ORDERED: METHADONE HCL 5 MG TABLET (FOR DETOX USE ONLY) PO ONE (10:00)
[2018-05-12] MEDS ORDERED: METHADONE HCL 5 MG TABLET (FOR DETOX USE ONLY) PO SCH (10:00)
[2018-05-12] MEDS: QUEtiapine FUMARATE 50 MG TABLET PO SCH (10:35)
[2018-05-12] MEDS: levETIRAcetam 500 MG TABLET (FP) PO SCH (10:36)
[2018-05-12] MEDS: PRENATAL VITAMINS W/ FOLIC ACID TABLET (FP) PO SCH (10:36)
[2018-05-12] MEDS: diazePAM 5 MG TABLET PO SCH (10:36)
[2018-05-12] MEDS: ASPIRIN COATED 81 MG TABLET.EC PO SCH (10:36)
[2018-05-12] MEDS: EMTRICITABINE 200MG/TENOFOVIR 300MG PO SCH (10:36)
[2018-05-12] MEDS: NICOTINE 14 MG/24 HOURS TOPICAL PATCH TD SCH (10:38)
--- NOTE | 2018-05-12 11:24 | PN ---
[facility] CIWA - CIWA Score Nausea/Vomitin-Mild Nausea/No Vomiting Muscle Tremors: 4-Moderate,w/Arms Extend Anxiety: 3 Agitation: 3 Paroxysmal Sweats: 1-Minimal Palms Moist Orientation: 0-Oriented Tacttile Disturbances: 0-None Auditory Disturbances: 0-None Visual Disturbances: 0-None Headache: 0-None Present CIWA-Ar Total Score: 12 S COWS - Scale Resting Pulse: 1= [place] 81-100 Sweatin= Chills/Flushing Restless Observation: 1= Difficult to Sit Still Pupil Size: 0= Normal to Room Light Bone or Joint Aches: 2= Severe Diffuse Aches Runny Nose/ Eye Tearin= Nasal Congestion GI Upset > 30mins: 2= Nausea/Diarrhea Tremor Observation of Outstretched Hands: 2= Slight Tremor Visible Yawning Observation: 1= 1-2x During Session Anxiety or Irritability: 1=Feels Anxious/Irritable Goose Flesh Skin: 0=Smooth Skin COWS Score: 12 [facility] Progress Note (SOAP) Subjective: joints pain sweating tremor body aches trouble sleep at night denies vomiting but mild nausea Objective: 05/12/18 11:25 Vital Signs Temperature 97.7 F 05/12/18 10:33 Pulse Rate 83 05/12/18 10:33 Respiratory Rate 18 05/12/18 10:33 Blood Pressure 120/77 05/12/18 10:33 O2 Sat by Pulse Oximetry (%) Laboratory Last Values WBC 5.0 K/mm3 (4.0-10.0) 05/11/18 08:00 RBC 4.38 M/mm3 (3.60-5.2) 05/11/18 08:00 Hgb 12.8 GM/dL (10.7-15.3) 05/11/18 08:00 Hct 38.6 % (32.4-45.2) 05/11/18 08:00 MCV 88.1 fl (80-96) 05/11/18 08:00 MCH 29.1 pg (25.7-33.7) 05/11/18 08:00 MCHC 33.1 g/dl (32.0-36.0) 05/11/18 08:00 RDW 16.8 % (11.6-15.6) H 05/11/18 08:00 Plt Count 192 K/MM3 (134-434) D 05/11/18 08:00 MPV 8.9 fl (7.5-11.1) 05/11/18 08:00 Sodium 140 mmol/L (136-145) 05/11/18 08:00 Potassium 3.7 mmol/L (3.5-5.1) 05/11/18 08:00 Chloride 106 mmol/L (98-107) 05/11/18 08:00 Carbon Dioxide 24 mmol/L (21-32) 05/11/18 08:00 Anion Gap 10 (8-16) 05/11/18 08:00 BUN 15 mg/dL (7-18) 05/11/18 08:00 Creatinine 0.8 mg/dL (0.55-1.02) 05/11/18 08:00 Creat Clearance w eGFR > 60 (>60) 05/11/18 08:00 Random Glucose 98 mg/dL (74-106) 05/11/18 08:00 Calcium 8.2 mg/dL (8.5-10.1) L 05/11/18 08:00 Total Bilirubin 0.8 mg/dL (0.2-1.0) 05/11/18 08:00 AST 39 U/L (15-37) H 05/11/18 08:00 ALT 27 U/L (12-78) 05/11/18 08:00 Alkaline Phosphatase 68 U/L (45-117) 05/11/18 08:00 Total Protein 6.5 g/dl (6.4-8.2) 05/11/18 08:00 Albumin 3.2 g/dl (3.4-5.0) L 05/11/18 08:00 Urine Color Yellow 05/10/18 16:13 Urine Appearance Cloudy 05/10/18 16:13 Urine pH 6.0 (5.0-8.0) 05/10/18 16:13 Ur Specific [place] 1.017 (1.001-1.035) 05/10/18 16:13 Urine Protein 1+ (NEGATIVE) H 05/10/18 16:13 Urine Glucose (UA) Negative (NEGATIVE) 05/10/18 16:13 Urine Ketones Negative (NEGATIVE) 05/10/18 16:13 Urine Blood Negative (NEGATIVE) 05/10/18 16:13 Urine Nitrite Negative (NEGATIVE) 05/10/18 16:13 Urine Bilirubin Negative (<2.0 mg/dL) 05/10/18 16:13 Urine Urobilinogen Negative mg/dL (0.2-1.0) 05/10/18 16:13 Ur Leukocyte Esterase Negative (NEGATIVE) 05/10/18 16:13 Urine WBC (Auto) 3 /hpf (3-5) 05/10/18 16:13 Urine RBC (Auto) 1 /hpf (0-3) 05/10/18 16:13 Ur Epithelial Cells Few /HPF (FEW) 05/10/18 16:13 Urine Mucus Rare 05/10/18 16:13 RPR Titer Nonreactive (NONREACTIVE) 05/11/18 08:00 lab noted Assessment: 05/12/18 11:26 withdrawal sx Plan: continue detox
[2018-05-13] MEDS: diazePAM 5 MG TABLET PO PRN (05:21)
[2018-05-13] MEDS: diazePAM 5 MG TABLET PO SCH ×3 (08:27→22:02)
[2018-05-13] MEDS: THIAMINE HCL 100 MG TABLET (FP) PO SCH ×2 (08:27→22:02)
[2018-05-13] MEDS: QUEtiapine FUMARATE 50 MG TABLET PO SCH ×3 (08:27→22:02)
[2018-05-13] MEDS: levETIRAcetam 500 MG TABLET (FP) PO SCH ×3 (08:27→22:03)
[2018-05-13] MEDS ORDERED: METHADONE HCL 10 MG TABLET (FOR DETOX USE ONLY) PO ONE (10:00)
[2018-05-13] MEDS: PRENATAL VITAMINS W/ FOLIC ACID TABLET (FP) PO SCH (10:34)
[2018-05-13] MEDS: ASPIRIN COATED 81 MG TABLET.EC PO SCH (10:35)
[2018-05-13] MEDS: NICOTINE 14 MG/24 HOURS TOPICAL PATCH TD SCH (10:37)
[2018-05-13] MEDS: EMTRICITABINE 200MG/TENOFOVIR 300MG PO SCH (10:43)
--- NOTE | 2018-05-13 12:20 | PN ---
[facility] Progress Note (SOAP) Subjective: feeling better less sweat no tremor no body ache Objective: 05/13/18 12:18 Vital Signs Temperature 98 F 05/13/18 11:34 Pulse Rate 95 H 05/13/18 11:34 Respiratory Rate 104 H 05/13/18 11:34 Blood Pressure 115/80 05/13/18 11:34 O2 Sat by Pulse Oximetry (%) Laboratory Last Values WBC 5.0 K/mm3 (4.0-10.0) 05/11/18 08:00 RBC 4.38 M/mm3 (3.60-5.2) 05/11/18 08:00 Hgb 12.8 GM/dL (10.7-15.3) 05/11/18 08:00 Hct 38.6 % (32.4-45.2) 05/11/18 08:00 MCV 88.1 fl (80-96) 05/11/18 08:00 MCH 29.1 pg (25.7-33.7) 05/11/18 08:00 MCHC 33.1 g/dl (32.0-36.0) 05/11/18 08:00 RDW 16.8 % (11.6-15.6) H 05/11/18 08:00 Plt Count 192 K/MM3 (134-434) D 05/11/18 08:00 MPV 8.9 fl (7.5-11.1) 05/11/18 08:00 Sodium 140 mmol/L (136-145) 05/11/18 08:00 Potassium 3.7 mmol/L (3.5-5.1) 05/11/18 08:00 Chloride 106 mmol/L (98-107) 05/11/18 08:00 Carbon Dioxide 24 mmol/L (21-32) 05/11/18 08:00 Anion Gap 10 (8-16) 05/11/18 08:00 BUN 15 mg/dL (7-18) 05/11/18 08:00 Creatinine 0.8 mg/dL (0.55-1.02) 05/11/18 08:00 Creat Clearance w eGFR > 60 (>60) 05/11/18 08:00 Random Glucose 98 mg/dL (74-106) 05/11/18 08:00 Calcium 8.2 mg/dL (8.5-10.1) L 05/11/18 08:00 Total Bilirubin 0.8 mg/dL (0.2-1.0) 05/11/18 08:00 AST 39 U/L (15-37) H 05/11/18 08:00 ALT 27 U/L (12-78) 05/11/18 08:00 Alkaline Phosphatase 68 U/L (45-117) 05/11/18 08:00 Total Protein 6.5 g/dl (6.4-8.2) 05/11/18 08:00 Albumin 3.2 g/dl (3.4-5.0) L 05/11/18 08:00 Urine Color Yellow 05/10/18 16:13 Urine Appearance Cloudy 05/10/18 16:13 Urine pH 6.0 (5.0-8.0) 05/10/18 16:13 Ur Specific [place] 1.017 (1.001-1.035) 05/10/18 16:13 Urine Protein 1+ (NEGATIVE) H 05/10/18 16:13 Urine Glucose (UA) Negative (NEGATIVE) 05/10/18 16:13 Urine Ketones Negative (NEGATIVE) 05/10/18 16:13 Urine Blood Negative (NEGATIVE) 05/10/18 16:13 Urine Nitrite Negative (NEGATIVE) 05/10/18 16:13 Urine Bilirubin Negative (<2.0 mg/dL) 05/10/18 16:13 Urine Urobilinogen Negative mg/dL (0.2-1.0) 05/10/18 16:13 Ur Leukocyte Esterase Negative (NEGATIVE) 05/10/18 16:13 Urine WBC (Auto) 3 /hpf (3-5) 05/10/18 16:13 Urine RBC (Auto) 1 /hpf (0-3) 05/10/18 16:13 Ur Epithelial Cells Few /HPF (FEW) 05/10/18 16:13 Urine Mucus Rare 05/10/18 16:13 RPR Titer Nonreactive (NONREACTIVE) 05/11/18 08:00 lab noted Assessment: 05/13/18 12:19 mild withdrawal sx Plan: medically supervised detox
--- NOTE | 2018-05-13 22:16 | EKG ---
Test Reason : Blood Pressure : / mmHG Vent. Rate : 090 BPM Atrial Rate : 080 BPM P-R Int : 156 ms QRS Dur : 078 ms QT Int : 390 ms P-R-T Axes : 024 019 050 degrees QTc Int : 477 ms SINUS RHYTHM WITH OCCASIONAL and consecutive PREMATURE VENTRICULAR COMPLEXES AND PREMATURE ATRIAL COMPLEXES SEPTAL INFARCT (CITED ON OR BEFORE 31-JUL-2017) ABNORMAL ECG WHEN COMPARED WITH ECG OF 31-MAR-2018 10:44, VENT. RATE HAS INCREASED Confirmed by STUART DEWITT MD ([id number]) on 05/13/2018 10:16:29 PM Referred By: Confirmed By:STUART DEWITT MD
[2018-05-14] MEDS ORDERED: METHADONE HCL 5 MG TABLET (FOR DETOX USE ONLY) PO SCH (06:00)
[2018-05-14 06:29] VITALS: TEMP 97.7
--- NOTE | 2018-05-14 08:59 | DS ---
[facility] Detox Discharge Summary Admission Date: 05/10/18 Discharge Date: 05/14/18 - History Present History: Alcohol Dependence, Opioid Dependence, Sedative Dependence Additional Comments: 33 female admitted 05/10/18 for alcohol benzo opiate withdrawal sx completed benzo alcohol and opiate detox regimen tolerated well reported mild withdrawal from polysubstances "tolerable" alert oriented x 3 no acute distress ambulate with wheelchair aftercare methadone maintenance program for addiction medical and mental issues - Physical Exam Results Vital Signs: Vital Signs Temperature 97.7 F 05/14/18 06:00 Pulse Rate 79 05/14/18 06:00 Respiratory Rate 18 05/14/18 06:00 Blood Pressure 125/71 05/14/18 06:00 O2 Sat by Pulse Oximetry (%) Pertinent Admission Physical Exam Findings: alcohol benzo opiate withdrawal sx Vital Signs Temperature 97.7 F 05/14/18 06:00 Pulse Rate 79 05/14/18 06:00 Respiratory Rate 18 05/14/18 06:00 Blood Pressure 125/71 05/14/18 06:00 O2 Sat by Pulse Oximetry (%) Laboratory Last Values WBC 5.0 K/mm3 (4.0-10.0) 05/11/18 08:00 RBC 4.38 M/mm3 (3.60-5.2) 05/11/18 08:00 Hgb 12.8 GM/dL (10.7-15.3) 05/11/18 08:00 Hct 38.6 % (32.4-45.2) 05/11/18 08:00 MCV 88.1 fl (80-96) 05/11/18 08:00 MCH 29.1 pg (25.7-33.7) 05/11/18 08:00 MCHC 33.1 g/dl (32.0-36.0) 05/11/18 08:00 RDW 16.8 % (11.6-15.6) H 05/11/18 08:00 Plt Count 192 K/MM3 (134-434) D 05/11/18 08:00 MPV 8.9 fl (7.5-11.1) 05/11/18 08:00 Sodium 140 mmol/L (136-145) 05/11/18 08:00 Potassium 3.7 mmol/L (3.5-5.1) 05/11/18 08:00 Chloride 106 mmol/L (98-107) 05/11/18 08:00 Carbon Dioxide 24 mmol/L (21-32) 05/11/18 08:00 Anion Gap 10 (8-16) 05/11/18 08:00 BUN 15 mg/dL (7-18) 05/11/18 08:00 Creatinine 0.8 mg/dL (0.55-1.02) 05/11/18 08:00 Creat Clearance w eGFR > 60 (>60) 05/11/18 08:00 Random Glucose 98 mg/dL (74-106) 05/11/18 08:00 Calcium 8.2 mg/dL (8.5-10.1) L 05/11/18 08:00 Total Bilirubin 0.8 mg/dL (0.2-1.0) 05/11/18 08:00 AST 39 U/L (15-37) H 05/11/18 08:00 ALT 27 U/L (12-78) 05/11/18 08:00 Alkaline Phosphatase 68 U/L (45-117) 05/11/18 08:00 Total Protein 6.5 g/dl (6.4-8.2) 05/11/18 08:00 Albumin 3.2 g/dl (3.4-5.0) L 05/11/18 08:00 Urine Color Yellow 05/10/18 16:13 Urine Appearance Cloudy 05/10/18 16:13 Urine pH 6.0 (5.0-8.0) 05/10/18 16:13 Ur Specific [place] 1.017 (1.001-1.035) 05/10/18 16:13 Urine Protein 1+ (NEGATIVE) H 05/10/18 16:13 Urine Glucose (UA) Negative (NEGATIVE) 05/10/18 16:13 Urine Ketones Negative (NEGATIVE) 05/10/18 16:13 Urine Blood Negative (NEGATIVE) 05/10/18 16:13 Urine Nitrite Negative (NEGATIVE) 05/10/18 16:13 Urine Bilirubin Negative (<2.0 mg/dL) 05/10/18 16:13 Urine Urobilinogen Negative mg/dL (0.2-1.0) 05/10/18 16:13 Ur Leukocyte Esterase Negative (NEGATIVE) 05/10/18 16:13 Urine WBC (Auto) 3 /hpf (3-5) 05/10/18 16:13 Urine RBC (Auto) 1 /hpf (0-3) 05/10/18 16:13 Ur Epithelial Cells Few /HPF (FEW) 05/10/18 16:13 Urine Mucus Rare 05/10/18 16:13 RPR Titer Nonreactive (NONREACTIVE) 05/11/18 08:00 lab noted - Treatment Hospital Course: Detox Protocol Followed, Detoxed Safely, Responded well, Discharged Condition Good, Rehab Referral Accepted Patient has Accepted a Rehab Referral to: methadone maintenance program - Medication Discharge Medications: Ambulatory Orders Aspirin [Aspirin EC] 81 mg PO DAILY 04/28/14 Quetiapine Fumarate [Seroquel -] 50 mg PO DAILY 03/30/18 Quetiapine Fumarate [Seroquel -] 200 mg PO HS 03/30/18 Emtricitabine/Tenofovir [Truvada -] 1 tab PO DAILY 05/10/18 levETIRAcetam [Keppra -] 1,000 mg PO BID #60 tablet 05/13/18 - Diagnosis (1) Alcohol dependence with uncomplicated withdrawal Current Visit: Yes Status: Acute (2) HIV (human immunodeficiency virus infection) Current Visit: Yes Status: Chronic (3) Opioid dependence with withdrawal Current Visit: Yes Status: Acute (4) Seizure disorder Current Visit: Yes Status: Chronic (5) Uncomplicated sedative, hypnotic or anxiolytic withdrawal Current Visit: Yes Status: Acute (6) Nicotine dependence Current Visit: Yes Status: Acute Qualifiers: Nicotine product type: cigarettes Substance use status: in withdrawal Qualified Code(s): F17.213 - Nicotine dependence, cigarettes, with withdrawal (7) Hepatitis C Current Visit: No Status: Resolved Qualifiers: Viral hepatitis chronicity: chronic Hepatic coma status: without hepatic coma Qualified Code(s): B18.2 - Chronic viral hepatitis C - AMA Did Patient Leave Against Medical Advice: No
[2018-05-14 09:08] VITALS: BP 131/78; PULSE 93
[2018-05-14] MEDS: PRENATAL VITAMINS W/ FOLIC ACID TABLET (FP) PO SCH (09:18)
[2018-05-14] MEDS: ASPIRIN COATED 81 MG TABLET.EC PO SCH (09:19)
[2018-05-14] MEDS: NICOTINE 14 MG/24 HOURS TOPICAL PATCH TD SCH (09:19)
[2018-05-14] MEDS: QUEtiapine FUMARATE 50 MG TABLET PO SCH (09:19)
[2018-05-14] MEDS: EMTRICITABINE 200MG/TENOFOVIR 300MG PO SCH (09:19)
[2018-05-14] MEDS: levETIRAcetam 500 MG TABLET (FP) PO SCH (09:19)
[2018-05-14] MEDS ORDERED: diazePAM 5 MG TABLET PO SCH (10:00)
[2018-05-14] MEDS ORDERED: METHADONE HCL 10 MG TABLET (FOR DETOX USE ONLY) PO SCH (10:00)
[2018-05-15] MEDS ORDERED: METHADONE HCL 5 MG TABLET (FOR DETOX USE ONLY) PO SCH (06:00)
== END 2018-05-14 10:57 | disposition home or self-care (01) | DRG 773 ==
LOC: YASAS 11:33 → Y6N 13:59
PROVIDERS: ADMIT Family Medicine Addiction Medicine; ATTEND Family Medicine Addiction Medicine
PROC: HZ2ZZZZ Detoxification Services for Substance Abuse Treatment (ICD-10-PCS; principal; 2018-05-10)
DX: F11.23 Opioid dependence with withdrawal (principal); F13.230 Sedative, hypnotic or anxiolytic dependence with withdrawal, uncomplicated; F10.230 Alcohol dependence with withdrawal, uncomplicated; F17.213 Nicotine dependence, cigarettes, with withdrawal; F19.24 Other psychoactive substance dependence with psychoactive substance-induced mood disorder; G47.00 Insomnia, unspecified; Z21 Asymptomatic human immunodeficiency virus [HIV] infection status; B18.2 Chronic viral hepatitis C; G40.909 Epilepsy, unspecified, not intractable, without status epilepticus; I69.851 Hemiplegia and hemiparesis following other cerebrovascular disease affecting right dominant side; R26.89 Other abnormalities of gait and mobility; Z99.3 Dependence on wheelchair; Z88.8 Allergy status to other drugs, medicaments and biological substances; Z91.030 Bee allergy status; Z91.011 Allergy to milk products
CPT/HCPCS: 36415; 80053; 81003; 81015; 85027; 86593; 93005; 93010

== ENCOUNTER 2018-06-02 11:34 | Inpatient (IN) | payer OTHER ==
[2018-06-02 13:00] VITALS: BMI 26.6
--- NOTE | 2018-06-02 15:27 | HP ---
COWS - Scale Resting Pulse: 1= [place] 81-100 Sweatin=Flushed/Facial Moisture Restless Observation: 1= Difficult to Sit Still Pupil Size: 0= Normal to Room Light Bone or Joint Aches: 1= Mild Discomfort Runny Nose/ Eye Tearin= Runny Nose/Eyes GI Upset > 30mins: 1= Stomach Cramp Tremor Observation: 2= Slight Tremor Visible Yawning Observation: 1= 1-2x During Session Anxiety or Irritability: 2=Irritable/Anxious Goose Flesh Skin: 0=Smooth Skin COWS Score: 13 CIWA Score - CIWA Score Nausea/Vomitin Muscle Tremors: 3 Anxiety: 3 Agitation: 3 Paroxysmal Sweats: 3 Orientation: 0-Oriented Tacttile Disturbances: 0-None Auditory Disturbances: 0-None Visual Disturbances: 0-None Headache: 1-Very Mild CIWA-Ar Total Score: 16 Admission ROS S - HPI Chief Complaint: "I need help, I don't want to do this no more" Allergies/Adverse Reactions: Allergies Allergy/AdvReac Type Severity Reaction Status Date / Time Fish Containing Products Allergy Intermediate Hives Verified 05/10/18 12:12 milk Allergy Intermediate Vomiting Verified 05/10/18 12:12 venom-honey bee Allergy Difficulty Verified 05/10/18 12:12 [bee venom (honey bee)] Breathing chlordiazepoxide HCl AdvReac Severe Vomiting Verified 05/10/18 12:12 [From Librium] History of Present Illness: 33 y/o female with a long hx of alcohol and heroin addiction presents for detox. Pt is well known to this program, was last here in April and March 2018. States she "" 3 days ago and had to be given narcan. 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 Arrived on a wheelchair but is able to ambulate. Denies previous nor current SI. Exam Limitations: No Limitations - Ebola screening Have you traveled outside of the country in the last 21 days: No (N) Have you had contact with anyone from an Ebola affected area: No Have you been sick,other than usual withdrawal symptoms: No Do you have a fever: No - Review of Systems Constitutional: Chills, Loss of Appetite EENT: reports: No Symptoms Reported, Nose Congestion Respiratory: reports: No Symptoms reported Cardiac: reports: No Symptoms Reported GI: reports: Nausea, Poor Appetite : denies: No Symptoms Reported Musculoskeletal: reports: Other (R sided weakness, ambulates with a limp) Integumentary: reports: No Symptoms Reported, Flushing Neuro: reports: Headache Endocrine: reports: Intolerance to Cold, Intolerance to Heat Hematology: reports: Anemia Psychiatric: reports: No Sypmtoms Reported, Anxious Other Systems: Reviewed and Negative Patient History - Patient Medical History Hx Anemia: No Hx Asthma: No Hx Chronic Obstructive Pulmonary Disease (COPD): No Hx Cancer: No Hx Cardiac Disorders: Yes Hx Congestive Heart Failure: No Hx Hypertension: No Hx Hypercholesterolemia: No Hx Pacemaker: No HX Cerebrovascular Accident: Yes (STROKE X 3; RIGHT-SIDED WEAKNESS, 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 inhaled Arsenic) Hx Seizures: Yes (last seizure was 1 month ago.) Hx Dementia: No Hx Diabetes: No Hx Gastrointestinal Disorders: No Hx Liver Disease: Yes (Hep C, untreated) Hx Genitourinary Disorders: No Hx Sexually Transmitted Disorders: No Hx Renal Disease (ESRD): No Hx Thyroid Disease: No Hx Human Immunodeficiency Virus (HIV): No (last 2016 negative, ) Hx Hepatitis C: Yes (not treated) Hx Depression: No Hx Suicide Attempt: No (denies curent) Hx Bipolar Disorder: No Hx Schizophrenia: No - Patient Surgical History Past Surgical History: Yes Hx Neurologic Surgery: No Hx Cataract Extraction: No Hx Cardiac Surgery: Yes (SURGERY FOR PERICARDITIS IN 07/2013) Hx Lung Surgery: No Hx Breast Surgery: No Hx Breast Biopsy: No Hx Abdominal Surgery: Yes (EXP. LAPOROTOMY IN 07/2013 AT [facility] Hx Appendectomy: No Hx Cholecystectomy: No Hx Genitourinary Surgery: No Hx Section: No Hx Orthopedic Surgery: No Anesthesia Reaction: No - PPD History Previous Implant?: Yes Documented Results: Negative w/proof Implanted On Prior R Admission?: Yes Date: 08/02/17 Results: 0 MM PPD to be Administered?: No - Reproductive History Patient is a Female of Child Bearing Age (11 -55 yrs old): Yes Last Menstrual Period: 05/26/18 LMP comment: stated "a week ago" Patient : No - Smoking Cessation Smoking history: Current every day smoker Have you smoked in the past 12 months: Yes Aproximately how many cigarettes per day: 20 Cigars Per Day: 0 Hx Chewing Tobacco Use: No Initiated information on smoking cessation: Yes 'Breaking Loose' booklet given: 06/02/18 - Substance & Tx. History Hx Alcohol Use: Yes Hx Substance Use: Yes Substance Use Type: Heroin Hx Substance Use Treatment: Yes - Substances Abused Alcohol Route: Oral Frequency: Daily Amount used: a litre of vodka Age of first use: 17 Date of Last Use: 06/02/18 Heroin Route: Injection Frequency: Daily Amount used: 10 bags Age of first use: 17 Date of Last Use: 06/02/18 Family Disease History - Family Disease History Family Disease History: CA: Mother (, allcoholic; uterine/?cervical; dec ), Other: Father (no contact), Mother, Brother (two - living - healthy), Sister (one -liver; two living healthy), Son (age 16 - healthy), Daughter ( age 18 - healthy) Admission Physical Exam [facility] - Vital Signs Vital Signs: Vital Signs - 24 hr 06/02/18 12:57 Temperature 98.7 F Pulse Rate 97 H Respiratory 19 Rate Blood Pressure 122/82 - Physical General Appearance: Yes: Alcohol on Breath, Irritable, Anxious HEENTM: Yes: Nasal Congestion Respiratory: Yes: Lungs Clear, No Respiratory Distress Neck: Yes: Within Normal Limits, Trachea in good position Breast: Yes: Breast Exam Deferred Cardiology: Yes: Regular Rhythm Abdominal: Yes: Normal Bowel Sounds, Surgical Scar (healed vertical scars) Genitourinary: Yes: Within Normal Limits Back: Yes: Normal Inspection Musculoskeletal: Yes: Other (R sided weakness, limps) Extremities: Yes: Within Normal Limits, Normal Capillary Refill Neurological: Yes: Fully Oriented, Other (weakness on R side, 5/5 motor strength on Left) Integumentary: Yes: Track [place] (L AC, uninfected) - Diagnostic (1) Dependent for wheelchair mobility Current Visit: No Status: Chronic (2) Alcohol dependence with uncomplicated withdrawal Current Visit: Yes Status: Acute (3) Benzodiazepine dependence Current Visit: Yes Status: Chronic (4) Nicotine dependence Current Visit: Yes Status: Acute Qualifiers: Nicotine product type: cigarettes Substance use status: in withdrawal Qualified Code(s): F17.213 - Nicotine dependence, cigarettes, with withdrawal (5) Opioid dependence with withdrawal Current Visit: Yes Status: Acute (6) Hemiparesis affecting right side as late effect of cerebrovascular accident Current Visit: Yes Status: Chronic (7) Needs minimal help in wheelchair Current Visit: Yes Status: Chronic (8) Seizure disorder Current Visit: Yes Status: Chronic (9) Hepatitis C Current Visit: Yes Status: Chronic Qualifiers: Viral hepatitis chronicity: chronic Hepatic coma status: without hepatic coma Qualified Code(s): B18.2 - Chronic viral hepatitis C Comment: not treated Cleared for Admission [facility] - Detox or Rehab [facility] Level of Care: Medically Managed Detox Regimen/Protocol: Methadone/Valium S Breath Alcohol Content Breath Alcohol Content: 0.118 Urine Pregancy Test - Result Urine Test Results: Negative- NO Line Present Urine Drug Screen - Results Drug Screen Negative: No Urine Drug Screen Results: OPI-Opiates, BZO-Benzodiazepines, MTD-Methadone
[2018-06-02] MEDS ORDERED: ACETAMINOPHEN 325 MG TABLET (FP) PO PRN (15:51)
[2018-06-02] MEDS ORDERED: MAGNESIUM HYDROX 2400MG/30ML ORAL SUSPENSION 30 ML CUP PO PRN (15:51)
[2018-06-02] MEDS ORDERED: MAGNESIUM CITRATE 300 ML BOTTLE PO PRN (15:51)
[2018-06-02] MEDS ORDERED: LOPERAMIDE HCL 2 MG CAPSULE PO PRN (15:51)
[2018-06-02] MEDS ORDERED: MENTHOL/PHENOL 1 EACH UD MM PRN (15:51)
[2018-06-02] MEDS ORDERED: guaiFENesin/D-METHORPHAN HB 10 ML UNIT-DOSE CUPS PO PRN (15:51)
[2018-06-02] MEDS ORDERED: P-EPHED 60MG/TRIPROLIDI 2.5MG TABLET PO PRN (15:51)
[2018-06-02] MEDS ORDERED: hydrOXYzine PAMOATE 50 MG CAPSULE (FP) PO PRN (15:51)
[2018-06-02] MEDS ORDERED: MAG HYDROX/AL HYDROX/SIMETH 30 ML UNIT-DOSE CUP PO PRN (15:51)
[2018-06-02] MEDS ORDERED: METHADONE HCL 10 MG TABLET (FOR DETOX USE ONLY) PO ONE ×2 (17:15→23:00)
[2018-06-02] MEDS ORDERED: diazePAM 5 MG TABLET PO ONE (17:15)
[2018-06-02] MEDS: ASPIRIN COATED 81 MG TABLET.EC PO SCH (18:15)
[2018-06-02 19:31] LABS: URINE APPEARANCE CLEAR; URINE BILIRUBIN NEGATIVE (<2.0 mg/dL); URINE COLOR YELLOW; URINE GLUCOSE (UA) NEGATIVE (NEGATIVE); URINE KETONE 2+ (NEGATIVE); URINE LEUK ESTERASE NEGATIVE (NEGATIVE); URINE NITRITE NEGATIVE (NEGATIVE); URINE UROBILINOGEN NEGATIVE mg/dL (0.2-1.0)
[2018-06-02 19:34] LABS: URINE PROTEIN 2+ (NEGATIVE)
[2018-06-02 19:50] LABS: EPI CELLS RARE /HPF (FEW); URINE AMORPHOUS SEDIMENT RARE
[2018-06-02] MEDS ORDERED: MELATONIN 5 MG TABLETS PO PRN (22:00)
[2018-06-02] MEDS: diazePAM 5 MG TABLET PO SCH (22:26)
[2018-06-02] MEDS: levETIRAcetam 500 MG TABLET (FP) PO SCH (22:26)
[2018-06-02] MEDS: THIAMINE HCL 100 MG TABLET (FP) PO SCH (22:27)
[2018-06-03] MEDS: diazePAM 5 MG TABLET PO PRN ×3 (01:51→18:32)
[2018-06-03] MEDS: diazePAM 5 MG TABLET PO SCH ×3 (05:59→22:17)
--- NOTE | 2018-06-03 09:40 | CONSULT ---
[facility] Psychiatric Consult - Data Date of interview: 06/03/18 Admission source: [facility] Identifying data: This is 33 years old female, mother of two, living with family , on SSI, with a long history of alcohol and heroin addiction presents here with withdrawal symptoms and seekijng for detox. States she uses street methadone sometimes. Patiernt is ambulating with wheelchair after CVA at 24 years old. 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 Arrived on a wheelchair but is able to ambulate. Denies previous nor current SI. Substance Abuse History: Smoking history: Current every day smoker. Have you smoked in the past 12 months: Yes. Aproximately how many cigarettes per day: 20. Cigars Per Day: 0. Hx Chewing Tobacco Use: No. Initiated information on smoking cessation: Yes. 'Breaking Loose' booklet given: 06/02/18. - Substance & Tx. History. Hx Alcohol Use: Yes. Hx Substance Use: Yes. Substance Use Type : Heroin. Hx Substance Use Treatment: Yes. - Substances Abused. Alcohol. Route: Oral. Frequency: Daily. Amount used: a litre of vodka. Age of first use: 17. Date of Last Use: 06/02/18. Heroin. Route: Injection. Frequency : Daily. Amount used: 10 bags. Age of first use: 17. Date of Last Use: Medical History: Seozure history, HepC+, HIV, UTI history, CVA with history of three CVA's since 2008 and as arezult rite sided weakness, ambulates with wheelcair. Patient motivated for detox, denies suicidal, homicidal ideation. Psychiatric History: Patient reports history of depression and anxiety, reports taking porior to admission: Seroquel 50mg poqd, 200 mg po qhs. Denies spsychiatric hospitalization history, denies suicidal, homiciadal history. Physical/Sexual Abuse/Trauma History: Denies Additional Comment: Seroquel 50mg poqd, 200 mg po qhs Mental Status Exam - Mental Status Exam Alert and Oriented to: Person Cognitive Function: Fair Patient Appearance: Unkempt Mood: Apprehensive Affect: Mood Congruent Patient Behavior: Cooperative Speech Pattern: Appropriate Voice Loudness: Mildly Soft/Quiet Thought Process: Goal Oriented Thought Disorder: Being Controlled Hallucinations: Denies Suicidal Ideation: Denies Homicidal Ideation: Denies Insight/Judgement: Fair Sleep: Difficulty falling asleep Appetite: Weight gain Muscle strength/Tone: Moderate Hypotonicity Gait/Station: Deferred Additional Comments: Seroquel 50mg poqd, 200 mg po qhs Psychiatric Findings - Problem List ([place] 1, 2,3) (1) Alcohol dependence with uncomplicated withdrawal Current Visit: Yes Status: Acute (2) Nicotine dependence Current Visit: Yes Status: Acute Qualifiers: Nicotine product type: cigarettes Substance use status: in withdrawal Qualified Code(s): F17.213 - Nicotine dependence, cigarettes, with withdrawal (3) Opioid dependence with withdrawal Current Visit: Yes Status: Acute (4) Benzodiazepine dependence Current Visit: Yes Status: Chronic (5) Hemiparesis affecting right side as late effect of cerebrovascular accident Current Visit: Yes Status: Chronic (6) Hepatitis C Current Visit: Yes Status: Chronic Qualifiers: Viral hepatitis chronicity: chronic Hepatic coma status: without hepatic coma Qualified Code(s): B18.2 - Chronic viral hepatitis C Comment: not treated (7) Seizure disorder Current Visit: Yes Status: Chronic (8) Amphetamine abuse Current Visit: No Status: Acute (9) Drug-induced mood disorder Current Visit: No Status: Acute (10) Insomnia Current Visit: No Status: Acute (11) UTI (urinary tract infection) Current Visit: No Status: Acute (12) Uncomplicated sedative, hypnotic or anxiolytic withdrawal Current Visit: No Status: Acute (13) Anxiety Current Visit: No Status: Chronic (14) HIV (human immunodeficiency virus infection) Current Visit: No Status: Chronic (15) Impaired mobility Current Visit: No Status: Chronic Comment: able to propel self in wheelchair (16) Walker as ambulation aid Current Visit: No Status: Chronic (17) Substance-induced anxiety disorder Current Visit: No Status: Suspected - Initial Treatment Plan Initial Treatment Plan: Seroquel 50mg poqd, 299mg po qhs
[2018-06-03 09:46] LABS: HEMATOCRIT 41.5 % (32.4-45.2); HEMOGLOBIN 13.9 GM/dL (10.7-15.3); MCHC 33.5 g/dl (32.0-36.0); MEAN CELL VOLUME 86.4 fl (80-96); MEAN PLT VOLUME 8.5 fl (7.5-11.1); PLATELET COUNT 141 K/MM3 (134-434); RDW 16.8 % (11.6-15.6); WHITE BLOOD COUNT 4.8 K/mm3 (4.0-10.0)
[2018-06-03] MEDS ORDERED: METHADONE HCL 10 MG TABLET (FOR DETOX USE ONLY) PO SCH (10:00)
[2018-06-03] MEDS: QUEtiapine FUMARATE 50 MG TABLET PO SCH (10:23)
[2018-06-03] MEDS: PRENATAL VITAMINS W/ FOLIC ACID TABLET (FP) PO SCH (10:23)
[2018-06-03] MEDS: ASPIRIN COATED 81 MG TABLET.EC PO SCH (10:23)
[2018-06-03] MEDS: levETIRAcetam 500 MG TABLET (FP) PO SCH ×2 (10:23→22:17)
--- NOTE | 2018-06-03 10:28 | PN ---
[facility] CIWA - CIWA Score Nausea/Vomitin-Mild Nausea/No Vomiting Muscle Tremors: 4-Moderate,w/Arms Extend Anxiety: 4-Mod. Anxious/Guarded Agitation: 3 Paroxysmal Sweats: 1-Minimal Palms Moist Orientation: 0-Oriented Tacttile Disturbances: 1-Very Mild Itch/Numbness Auditory Disturbances: 0-None Visual Disturbances: 0-None Headache: 0-None Present CIWA-Ar Total Score: 14 [facility] COWS - Scale Resting Pulse: 1= [place] 81-100 Sweatin= Chills/Flushing Restless Observation: 1= Difficult to Sit Still Pupil Size: 0= Normal to Room Light Bone or Joint Aches: 2= Severe Diffuse Aches Runny Nose/ Eye Tearin= Runny Nose/Eyes GI Upset > 30mins: 2= Nausea/Diarrhea Tremor Observation of Outstretched Hands: 2= Slight Tremor Visible Yawning Observation: 1= 1-2x During Session Anxiety or Irritability: 2=Irritable/Anxious Goose Flesh Skin: 0=Smooth Skin COWS Score: 14 [facility] Progress Note (SOAP) Subjective: hot and cold sweat tremor body pain trouble sleep at night Objective: 06/03/18 10:28 Vital Signs Temperature 98.4 F 06/03/18 10:18 Pulse Rate 89 06/03/18 10:18 Respiratory Rate 16 06/03/18 10:18 Blood Pressure 122/76 06/03/18 10:18 O2 Sat by Pulse Oximetry (%) Laboratory Last Values WBC 4.8 K/mm3 (4.0-10.0) 06/03/18 07:00 RBC 4.80 M/mm3 (3.60-5.2) 06/03/18 07:00 Hgb 13.9 GM/dL (10.7-15.3) 06/03/18 07:00 Hct 41.5 % (32.4-45.2) 06/03/18 07:00 MCV 86.4 fl (80-96) 06/03/18 07:00 MCH 29.0 pg (25.7-33.7) 06/03/18 07:00 MCHC 33.5 g/dl (32.0-36.0) 06/03/18 07:00 RDW 16.8 % (11.6-15.6) H 06/03/18 07:00 Plt Count 141 K/MM3 (134-434) D 06/03/18 07:00 MPV 8.5 fl (7.5-11.1) 06/03/18 07:00 Urine Color Yellow 06/02/18 17:24 Urine Appearance Clear 06/02/18 17:24 Urine pH 5.0 (5.0-8.0) 06/02/18 17:24 Ur Specific [place] 1.024 (1.001-1.035) 06/02/18 17:24 Urine Protein 2+ (NEGATIVE) H 06/02/18 17:24 Urine Glucose (UA) Negative (NEGATIVE) 06/02/18 17:24 Urine Ketones 2+ (NEGATIVE) H 06/02/18 17:24 Urine Blood 3+ (NEGATIVE) H 06/02/18 17:24 Urine Nitrite Negative (NEGATIVE) 06/02/18 17:24 Urine Bilirubin Negative (<2.0 mg/dL) 06/02/18 17:24 Urine Urobilinogen Negative mg/dL (0.2-1.0) 06/02/18 17:24 Ur Leukocyte Esterase Negative (NEGATIVE) 06/02/18 17:24 Urine WBC (Auto) 5 /hpf (3-5) 06/02/18 17:24 Urine RBC (Auto) 1 /hpf (0-3) 06/02/18 17:24 Ur Epithelial Cells Rare /HPF (FEW) 06/02/18 17:24 Amorphous Sediment Rare 06/02/18 17:24 lab noted Assessment: 06/03/18 10:28 withdrawal sx Plan: continue detox
[2018-06-03 10:29] LABS: CHLORIDE 97 mmol/L (98-107); POTASSIUM 3.4 mmol/L (3.5-5.1); SODIUM 137 mmol/L (136-145)
[2018-06-03 10:52] LABS: ALBUMIN 4.1 g/dl (3.4-5.0); ALK PHOS 101 U/L (45-117); ANION GAP 12 (8-16); BILIRUBIN,TOTAL 1.3 mg/dL (0.2-1.0); BLOOD UREA NITROGEN 15 mg/dL (7-18); CALCIUM 9.1 mg/dL (8.5-10.1); CO2 28 mmol/L (21-32); CREATININE 0.9 mg/dL (0.55-1.02); GLUCOSE,RANDOM 89 mg/dL (74-106); SGOT/AST 158 U/L (15-37); SGPT/ALT 94 U/L (12-78); TOT PROT 7.3 g/dl (6.4-8.2)
--- NOTE | 2018-06-03 13:35 | EKG ---
Test Reason : Blood Pressure : / mmHG Vent. Rate : 088 BPM Atrial Rate : 088 BPM P-R Int : 142 ms QRS Dur : 074 ms QT Int : 414 ms P-R-T Axes : 049 022 055 degrees QTc Int : 500 ms NORMAL SINUS RHYTHM PROLONGED QT ABNORMAL ECG WHEN COMPARED WITH ECG OF 10-MAY-2018 14:35, PREMATURE VENTRICULAR COMPLEXES ARE NO LONGER PRESENT PREMATURE ATRIAL COMPLEXES ARE NO LONGER PRESENT CRITERIA FOR SEPTAL INFARCT ARE NO LONGER PRESENT Confirmed by GINA LUIS MD ([id number]) on 06/03/2018 1:35:25 PM Referred By: Confirmed By:GINA LUIS MD
[2018-06-03] MEDS: THIAMINE HCL 100 MG TABLET (FP) PO SCH (22:17)
[2018-06-03] MEDS: QUEtiapine FUMARATE 200 MG TABLET PO SCH (22:18)
[2018-06-04] MEDS: diazePAM 5 MG TABLET PO PRN ×4 (03:44→19:17)
--- NOTE | 2018-06-04 09:59 | PN ---
[facility] CIWA - CIWA Score Nausea/Vomitin-Mild Nausea/No Vomiting Muscle Tremors: 4-Moderate,w/Arms Extend Anxiety: 4-Mod. Anxious/Guarded Agitation: 3 Paroxysmal Sweats: 1-Minimal Palms Moist Orientation: 0-Oriented Tacttile Disturbances: 0-None Auditory Disturbances: 0-None Visual Disturbances: 0-None Headache: 0-None Present CIWA-Ar Total Score: 13 BHS COWS - Scale Resting Pulse: 1= [place] 81-100 Sweatin= Chills/Flushing Restless Observation: 1= Difficult to Sit Still Pupil Size: 0= Normal to Room Light Bone or Joint Aches: 2= Severe Diffuse Aches Runny Nose/ Eye Tearin= Nasal Congestion GI Upset > 30mins: 2= Nausea/Diarrhea Tremor Observation of Outstretched Hands: 2= Slight Tremor Visible Yawning Observation: 1= 1-2x During Session Anxiety or Irritability: 2=Irritable/Anxious Goose Flesh Skin: 0=Smooth Skin COWS Score: 13 S Progress Note (SOAP) Subjective: sweat tremor body pain joints aches restlessness running nose Objective: 06/04/18 09:59 Vital Signs Temperature 98.1 F 06/04/18 09:20 Pulse Rate 88 06/04/18 09:20 Respiratory Rate 18 06/04/18 09:20 Blood Pressure 111/77 06/04/18 09:20 O2 Sat by Pulse Oximetry (%) Laboratory Last Values WBC 4.8 K/mm3 (4.0-10.0) 06/03/18 07:00 RBC 4.80 M/mm3 (3.60-5.2) 06/03/18 07:00 Hgb 13.9 GM/dL (10.7-15.3) 06/03/18 07:00 Hct 41.5 % (32.4-45.2) 06/03/18 07:00 MCV 86.4 fl (80-96) 06/03/18 07:00 MCH 29.0 pg (25.7-33.7) 06/03/18 07:00 MCHC 33.5 g/dl (32.0-36.0) 06/03/18 07:00 RDW 16.8 % (11.6-15.6) H 06/03/18 07:00 Plt Count 141 K/MM3 (134-434) D 06/03/18 07:00 MPV 8.5 fl (7.5-11.1) 06/03/18 07:00 Sodium 137 mmol/L (136-145) 06/03/18 07:00 Potassium 3.4 mmol/L (3.5-5.1) L 06/03/18 07:00 Chloride 97 mmol/L (98-107) L 06/03/18 07:00 Carbon Dioxide 28 mmol/L (21-32) 06/03/18 07:00 Anion Gap 12 (8-16) 06/03/18 07:00 BUN 15 mg/dL (7-18) 06/03/18 07:00 Creatinine 0.9 mg/dL (0.55-1.02) 06/03/18 07:00 Creat Clearance w eGFR > 60 (>60) 06/03/18 07:00 Random Glucose 89 mg/dL (74-106) 06/03/18 07:00 Calcium 9.1 mg/dL (8.5-10.1) 06/03/18 07:00 Total Bilirubin 1.3 mg/dL (0.2-1.0) H 06/03/18 07:00 AST 158 U/L (15-37) H 06/03/18 07:00 ALT 94 U/L (12-78) H 06/03/18 07:00 Alkaline Phosphatase 101 U/L (45-117) D 06/03/18 07:00 Total Protein 7.3 g/dl (6.4-8.2) 06/03/18 07:00 Albumin 4.1 g/dl (3.4-5.0) 06/03/18 07:00 Urine Color Yellow 06/02/18 17:24 Urine Appearance Clear 06/02/18 17:24 Urine pH 5.0 (5.0-8.0) 06/02/18 17:24 Ur Specific [place] 1.024 (1.001-1.035) 06/02/18 17:24 Urine Protein 2+ (NEGATIVE) H 06/02/18 17:24 Urine Glucose (UA) Negative (NEGATIVE) 06/02/18 17:24 Urine Ketones 2+ (NEGATIVE) H 06/02/18 17:24 Urine Blood 3+ (NEGATIVE) H 06/02/18 17:24 Urine Nitrite Negative (NEGATIVE) 06/02/18 17:24 Urine Bilirubin Negative (<2.0 mg/dL) 06/02/18 17:24 Urine Urobilinogen Negative mg/dL (0.2-1.0) 06/02/18 17:24 Ur Leukocyte Esterase Negative (NEGATIVE) 06/02/18 17:24 Urine WBC (Auto) 5 /hpf (3-5) 06/02/18 17:24 Urine RBC (Auto) 1 /hpf (0-3) 06/02/18 17:24 Ur Epithelial Cells Rare /HPF (FEW) 06/02/18 17:24 Amorphous Sediment Rare 06/02/18 17:24 RPR Titer Nonreactive (NONREACTIVE) 06/03/18 07:00 lab noted 06/04/18 10:02 K+ and AST repeat result pending Assessment: 06/04/18 10:02 withdrawal sx Plan: continue detox
[2018-06-04] MEDS: PRENATAL VITAMINS W/ FOLIC ACID TABLET (FP) PO SCH (10:43)
[2018-06-04] MEDS: levETIRAcetam 500 MG TABLET (FP) PO SCH ×2 (10:43→22:24)
[2018-06-04] MEDS: QUEtiapine FUMARATE 50 MG TABLET PO SCH (10:44)
[2018-06-04] MEDS: diazePAM 5 MG TABLET PO SCH ×2 (10:44→22:24)
[2018-06-04] MEDS: ASPIRIN COATED 81 MG TABLET.EC PO SCH (10:44)
[2018-06-04] MEDS: METHADONE HCL 5 MG TABLET (FOR DETOX USE ONLY) PO SCH (10:44)
[2018-06-04] MEDS ORDERED: NICOTINE POLACRILEX 4 MG GUM BUC PRN (10:46)
[2018-06-04 10:55] LABS: POTASSIUM 3.7 mmol/L (3.5-5.1)
[2018-06-04] MEDS: NICOTINE 21 MG/24 HOURS TOPICAL PATCH TD SCH (11:32)
[2018-06-04] MEDS: QUEtiapine FUMARATE 200 MG TABLET PO SCH (22:24)
[2018-06-04] MEDS: THIAMINE HCL 100 MG TABLET (FP) PO SCH (22:24)
[2018-06-05] MEDS: diazePAM 5 MG TABLET PO PRN (05:35)
[2018-06-05 09:23] VITALS: BP 101/63; PULSE 94; TEMP 97.2
[2018-06-05] MEDS: levETIRAcetam 500 MG TABLET (FP) PO SCH (10:18)
[2018-06-05] MEDS: ASPIRIN COATED 81 MG TABLET.EC PO SCH (10:18)
[2018-06-05] MEDS: PRENATAL VITAMINS W/ FOLIC ACID TABLET (FP) PO SCH (10:18)
[2018-06-05] MEDS: METHADONE HCL 5 MG TABLET (FOR DETOX USE ONLY) PO SCH (10:18)
[2018-06-05] MEDS: QUEtiapine FUMARATE 50 MG TABLET PO SCH (10:18)
[2018-06-05] MEDS: diazePAM 5 MG TABLET PO SCH (10:19)
[2018-06-05] MEDS: NICOTINE 21 MG/24 HOURS TOPICAL PATCH TD SCH (10:19)
--- NOTE | 2018-06-05 11:09 | DS ---
[facility] Detox Discharge Summary Admission Date: 06/02/18 Discharge Date: 06/05/18 - History Present History: Alcohol Dependence, Opioid Dependence - Physical Exam Results Vital Signs: Vital Signs Temperature 97.2 F L 06/05/18 09:23 Pulse Rate 94 H 06/05/18 09:23 Respiratory Rate 18 06/05/18 09:23 Blood Pressure 101/63 06/05/18 09:23 O2 Sat by Pulse Oximetry (%) - Treatment Hospital Course: Detox Protocol Followed, Responded well - Medication Discharge Medications: Ambulatory Orders Aspirin [Aspirin EC] 81 mg PO DAILY 04/28/14 Emtricitabine/Tenofovir [Truvada -] 1 tab PO DAILY 05/10/18 Quetiapine Fumarate [Seroquel -] 50 mg PO DAILY #30 tablet 06/03/18 Quetiapine Fumarate [Seroquel -] 200 mg PO HS #30 tablet 06/03/18 levETIRAcetam [Keppra -] 1,000 mg PO BID #60 tablet 06/05/18 - Diagnosis (1) Alcohol dependence with uncomplicated withdrawal Current Visit: Yes Status: Acute (2) Nicotine dependence Current Visit: Yes Status: Acute Qualifiers: Nicotine product type: cigarettes Substance use status: in withdrawal Qualified Code(s): F17.213 - Nicotine dependence, cigarettes, with withdrawal (3) Opioid dependence with withdrawal Current Visit: Yes Status: Acute (4) Hepatitis C Current Visit: Yes Status: Resolved Qualifiers: Viral hepatitis chronicity: chronic Hepatic coma status: without hepatic coma Qualified Code(s): B18.2 - Chronic viral hepatitis C (5) Seizure disorder Current Visit: Yes Status: Chronic (6) Uncomplicated sedative, hypnotic or anxiolytic withdrawal Current Visit: Yes Status: Acute (7) HIV (human immunodeficiency virus infection) Current Visit: Yes Status: Chronic - AMA Did Patient Leave Against Medical Advice: Yes
[2018-06-06] MEDS ORDERED: METHADONE HCL 10 MG TABLET (FOR DETOX USE ONLY) PO SCH (10:00)
[2018-06-06] MEDS ORDERED: diazePAM 5 MG TABLET PO SCH (10:00)
[2018-06-07] MEDS ORDERED: METHADONE HCL 5 MG TABLET (FOR DETOX USE ONLY) PO SCH (06:00)
== END 2018-06-05 14:06 | disposition left against medical advice (07) | DRG 770 ==
LOC: YASAS 11:34 → Y6N 17:01
PROVIDERS: ADMIT Surgery; ATTEND Surgery
PROC: HZ2ZZZZ Detoxification Services for Substance Abuse Treatment (ICD-10-PCS; principal; 2018-06-02)
DX: F11.23 Opioid dependence with withdrawal (principal); F13.230 Sedative, hypnotic or anxiolytic dependence with withdrawal, uncomplicated; F10.230 Alcohol dependence with withdrawal, uncomplicated; F17.213 Nicotine dependence, cigarettes, with withdrawal; F19.24 Other psychoactive substance dependence with psychoactive substance-induced mood disorder; F41.9 Anxiety disorder, unspecified; G47.00 Insomnia, unspecified; G40.909 Epilepsy, unspecified, not intractable, without status epilepticus; B18.2 Chronic viral hepatitis C; I69.851 Hemiplegia and hemiparesis following other cerebrovascular disease affecting right dominant side; R26.89 Other abnormalities of gait and mobility; Z99.89 Dependence on other enabling machines and devices
CPT/HCPCS: 36415; 80053; 81003; 81015; 84132; 84450; 85027; 86593; 93005; 93010

== ENCOUNTER 2018-11-13 08:34 | Inpatient (IN) | payer OTHER ==
[2018-11-13 10:28] VITALS: BMI 28.5
--- NOTE | 2018-11-13 10:53 | HP ---
COWS - Scale Resting Pulse: 1= MN 81-100 Sweatin=Flushed/Facial Moisture Restless Observation: 1= Difficult to Sit Still Pupil Size: 1= Pupils >than Normal Bone or Joint Aches: 2= Severe Diffuse Aches Runny Nose/ Eye Tearin= Nasal Congestion GI Upset > 30mins: 2= Nausea/Diarrhea Tremor Observation: 2= Slight Tremor Visible Yawning Observation: 0= None Anxiety or Irritability: 2=Irritable/Anxious Goose Flesh Skin: 0=Smooth Skin COWS Score: 14 CIWA Score Nausea/Vomitin Muscle Tremors: 3 Anxiety: 2 Agitation: 2 Paroxysmal Sweats: 3 Orientation: 0-Oriented Tacttile Disturbances: 2-Mild Itch/Numbness/Burn Auditory Disturbances: 0-None Visual Disturbances: 0-None Headache: 1-Very Mild CIWA-Ar Total Score: 16 - Admission Criteria [facility]ASAS Guidelines: Admission for Medically Managed Detox: Requires at least one of the followin. CIWA greater than 12 2. Seizures within the past 24 hours 3. Delirium tremens within the past 24 hours 4. Hallucinations within the past 24 hours 5. Acute intervention needed for co occurring medical disorder 6. Acute intervention needed for co occurring psychiatric disorder 7. Severe withdrawal that cannot be handled at a lower level of care (continued vomiting, continued diarrhea, abnormal vital signs) requiring intravenous medication and/or fluids 8. Patient presents the following: CIWA greater than 12 Admission Criteria Met: Admission criteria met Admission [facility] Chief Complaint: I need help , I have to get off drugs. Allergies/Adverse Reactions: Allergies Allergy/AdvReac Type Severity Reaction Status Date / Time Fish Containing Products Allergy Intermediate Hives Verified 06/02/18 16:50 milk Allergy Intermediate Vomiting Verified 06/02/18 16:50 venom-honey bee Allergy Difficulty Verified 06/02/18 16:50 [bee venom (honey bee)] Breathing chlordiazepoxide HCl AdvReac Severe Vomiting Verified 06/02/18 16:50 [From Librium] History of Present Illness: 33 y/o f pt with longstanding hx of polysubstance dep seeking detox fromheroin , alcohol and xanax. Exam Limitations: Physical Impairment - Ebola screening Have you traveled outside of the country in the last 21 days: No (N) Have you had contact with anyone from an Ebola affected area: No Have you been sick,other than usual withdrawal symptoms: No Do you have a fever: No - Review of Systems Constitutional: Malaise, Night Sweats, Changes in sleep, Weakness EENT: reports: No Symptoms Reported Respiratory: reports: No Symptoms reported Cardiac: reports: No Symptoms Reported GI: reports: Diarrhea, Nausea, Indigestion : reports: Frequency Musculoskeletal: reports: Muscle Pain, Muscle Weakness Integumentary: reports: No Symptoms Reported Neuro: reports: Seizure (last 1 yr ago taking keppra 1gm bid) Endocrine: reports: Increased Urine Hematology: reports: No Symptoms Reported Psychiatric: reports: Anxious, Depressed Other Systems: Reviewed and Negative Patient History - Patient Medical History Hx Anemia: No Hx Asthma: No Hx Chronic Obstructive Pulmonary Disease (COPD): No Hx Cancer: No Hx Cardiac Disorders: Yes (h/o pericarditis ) Hx Congestive Heart Failure: No Hx Hypertension: No Hx Hypercholesterolemia: No Hx Pacemaker: No HX Cerebrovascular Accident: Yes (STROKE X 3; RIGHT-SIDED WEAKNESS, 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 inhaled Arsenic) Hx Seizures: Yes (last seizure was 1 yr ago ) Hx Dementia: No Hx Diabetes: No Hx Gastrointestinal Disorders: No Hx Liver Disease: Yes (Hep C, untreated) Hx Genitourinary Disorders: No Hx Sexually Transmitted Disorders: No Hx Renal Disease (ESRD): No Hx Thyroid Disease: No Hx Human Immunodeficiency Virus (HIV): No (last 2016 negative, ) Hx Hepatitis C: Yes (not treated) Hx Depression: No Hx Suicide Attempt: No (denies curent) Hx Bipolar Disorder: No Hx Schizophrenia: No Other Medical History: hyperactivity - Patient Surgical History Past Surgical History: Yes Hx Neurologic Surgery: No Hx Cataract Extraction: No Hx Cardiac Surgery: Yes (SURGERY FOR PERICARDITIS IN 07/2013) Hx Lung Surgery: No Hx Breast Surgery: No Hx Breast Biopsy: No Hx Abdominal Surgery: Yes (EXP. LAPOROTOMY IN 07/2013 AT [facility] Hx Appendectomy: No Hx Cholecystectomy: No Hx Genitourinary Surgery: No Hx Section: No Hx Orthopedic Surgery: No Anesthesia Reaction: No - PPD History Documented Results: Negative w/o proof Date: 08/02/17 Results: 0 MM PPD to be Administered?: Yes - Reproductive History Patient is a Female of Child Bearing Age (11 -55 yrs old): Yes Last Menstrual Period: 11/13/18 Patient : No - Smoking Cessation Smoking history: Current every day smoker Have you smoked in the past 12 months: Yes Aproximately how many cigarettes per day: 20 Cigars Per Day: 0 Hx Chewing Tobacco Use: No Initiated information on smoking cessation: Yes 'Breaking Loose' booklet given: 11/13/18 - Substance & Tx. History Hx Alcohol Use: Yes Hx Substance Use: Yes (xanax) Substance Use Type: Alcohol, Heroin, Tranquilizers Hx Substance Use Treatment: Yes ( [facility]) - Substances Abused Alcohol Route: Oral Frequency: Daily Amount used: vodka 1 liter/day Age of first use: 1 Date of Last Use: 11/13/18 Alprazolam (Xanax) Route: Oral Frequency: Daily Amount used: 6-8mg /day Age of first use: 15 Date of Last Use: 11/13/18 Heroin Route: Injection Frequency: Daily Amount used: 10 bags/day Age of first use: 20 Date of Last Use: 11/13/18 (early this morning ) Family Disease History - Family Disease History Family Disease History: [place]: Mother (, allcoholic; uterine/?cervical; dec ), Other: Father (no contact), Mother, Brother (two - living - healthy), Sister (one -liver; two living healthy), Son (age 16 - healthy), Daughter ( age 18 - healthy) Admission Physical Exam BHS - Vital Signs Vital Signs: Vital Signs - 24 hr 11/13/18 10:23 Temperature 97.9 F Pulse Rate 90 Respiratory 18 Rate Blood Pressure 124/86 33 y/o f pt in wheel chair , aox3 in nad and cooperative with exam. - Physical General Appearance: Yes: Anxious HEENTM: Yes: EOMI, Hearing grossly Normal, Normal Voice, SRINIVASA, Nasal Congestion Respiratory: Yes: Chest Non-Tender, Lungs Clear, Normal Breath Sounds, No Respiratory Distress Neck: Yes: Supple, Trachea in good position Breast: Yes: Breast Exam Deferred Cardiology: Yes: Regular Rhythm, Regular Rate, S1, S2, Surgical Scar (well healed scar) Abdominal: Yes: Non Tender, Flat, Soft, Increased Bowel Sounds, Surgical Scar ( well healed mid line scar) Genitourinary: Yes: Frequency Back: Yes: Decreased Range of Motion Musculoskeletal: Yes: Muscle Pain, Muscle weakness (rt upper and lower extremities) Extremities: Yes: Tremors (left hand) Neurological: Yes: Fully Oriented, Alert, Other (rt facial dysmetry ,rt sided hemiplegia-upper and lower extremities) Integumentary: Yes: Moist, Track [place] (rt hand) Lymphatic: Yes: Within Normal Limits - Diagnostic (1) Alcohol dependence with uncomplicated withdrawal Current Visit: Yes Status: Chronic (2) Opioid dependence with withdrawal Current Visit: Yes Status: Chronic (3) Benzodiazepine dependence Current Visit: Yes Status: Chronic (4) HIV (human immunodeficiency virus infection) Current Visit: No Status: Chronic (5) Hemiparesis affecting right side as late effect of cerebrovascular accident Current Visit: Yes Status: Chronic (6) Seizure disorder Current Visit: No Status: Chronic (7) Hepatitis C Current Visit: No Status: Resolved Qualifiers: Viral hepatitis chronicity: chronic Hepatic coma status: without hepatic coma Qualified Code(s): B18.2 - Chronic viral hepatitis C Comment: not treated Cleared for Admission [facility] - Detox or Rehab [facility] Level of Care: Medically Managed Detox Regimen/Protocol: Methadone/Valium [facility] Breath Alcohol Content Breath Alcohol Content: 0.100 Urine Pregancy Test - Result Urine Test Results: Negative- NO Line Present Urine Drug Screen - Results Drug Screen Negative: No Urine Drug Screen Results: OPI-Opiates, BZO-Benzodiazepines, MTD-Methadone, OXY- Oxycodone
[2018-11-13] MEDS ORDERED: MAG HYDROX/AL HYDROX/SIMETH 30 ML UNIT-DOSE CUP PO PRN (11:26)
[2018-11-13] MEDS ORDERED: guaiFENesin/D-METHORPHAN HB 10 ML UNIT-DOSE CUPS PO PRN (11:26)
[2018-11-13] MEDS ORDERED: ACETAMINOPHEN 325 MG TABLET (FP) PO PRN (11:26)
[2018-11-13] MEDS ORDERED: P-EPHED 60MG/TRIPROLIDI 2.5MG TABLET PO PRN (11:26)
[2018-11-13] MEDS ORDERED: IBUPROFEN 400 MG TABLET (FP) PO PRN (11:26)
[2018-11-13] MEDS ORDERED: NICOTINE POLACRILEX 4 MG GUM BUC PRN (11:26)
[2018-11-13] MEDS ORDERED: MAGNESIUM HYDROX 2400MG/30ML ORAL SUSPENSION 30 ML CUP PO PRN (11:26)
[2018-11-13] MEDS ORDERED: MAGNESIUM CITRATE 300 ML BOTTLE PO PRN (11:26)
[2018-11-13] MEDS ORDERED: MENTHOL/PHENOL 1 EACH UD MM PRN (11:26)
[2018-11-13] MEDS ORDERED: LOPERAMIDE HCL 2 MG CAPSULE PO PRN (11:26)
[2018-11-13] MEDS ORDERED: diazePAM 5 MG TABLET PO ONE (13:05)
[2018-11-13] MEDS ORDERED: METHADONE HCL 10 MG TABLET (FOR DETOX USE ONLY) PO ONE ×2 (13:10→23:00)
[2018-11-13] MEDS: diazePAM 5 MG TABLET PO SCH ×2 (13:52→22:26)
--- NOTE | 2018-11-13 14:24 | CONSULT ---
[facility] Psychiatric Consult - Data Date of interview: 11/13/18 Admission source: [facility] Identifying data: Readmission to [facility] for this 33 y/o female seeking detoxification treatment, on , for opioid, alcohol and benzodiazepine (xanax) dependence. Patient is , a mother of two, domiciled, disabled and supported on SSI benefits. Substance Abuse History: Confirmed by the patient in this session. Details in current [facility] report : Smoking history: Current every day smoker. Have you smoked in the past 12 months: Yes. Aproximately how many cigarettes per day: 20. Cigars Per Day: 0. Hx Chewing Tobacco Use: No. Initiated information on smoking cessation: Yes. 'Breaking Loose' booklet given: 11/13/18. - Substance & Tx. History. Hx Alcohol Use: Yes. Hx Substance Use: Yes (xanax). Substance Use Type: Alcohol, Heroin, Tranquilizers. Hx Substance Use Treatment: Yes ([facility]). - Substances Abused. Alcohol. Route: Oral. Frequency: Daily. Amount used: vodka 1 liter/day. Age of first use: 1. Date of Last Use: . Alprazolam (Xanax). Route: Oral. Frequency: Daily. Amount used: 6- 8mg /day. Age of first use: 15. Date of Last Use: 11/13/18. Heroin. Route : Injection. Frequency: Daily. Amount used: 10 bags/day. Age of first use: 20. Date of Last Use: 11/13/18 (early this morning ) Medical History: Remarkable for a history of seizure disorder (post-stroke), three cerebrovascular accidents (CVA with right-sided paresis), hepatitis C, past surgery for pericarditis and exploratory laparotomy (at [facility] in 2012). Psychiatric History: Patient denies history of psychiatric hospitalizations. She declares that she does not have a psychiatric diagnosis. " I am prescribed seroquel because I am too hyper. That's all ". Ms Hansen has consistently declined psychiatric OPD care. She gets refills of seroquel at discharge from detox/rehabilitation units. Patient reports that she sees a private doctor in [facility] for medication management as well. Denies history of suicide attempts. Physical/Sexual Abuse/Trauma History: Patient denies. Additional Comment: Urine Drug Screen Results: OPI-Opiates, BZO-Benzodiazepines , MTD-Methadone, OXY-Oxycodone. Noted. Mental Status Exam - Mental Status Exam Alert and Oriented to: Time, Place, Person Cognitive Function: Good Patient Appearance: Well Groomed Mood: Anxious, Apprehensive, Hopeful Affect: Appropriate, Normal Range Patient Behavior: Fatigued, Appropriate, Cooperative Speech Pattern: Clear, Appropriate Voice Loudness: Normal Thought Process: Intact, Goal Oriented Thought Disorder: Not Present Hallucinations: Denies Suicidal Ideation: Denies Homicidal Ideation: Denies Insight/Judgement: Fair Sleep: Poorly, Difficulty falling asleep Appetite: Good Gait/Station: Other (moves around with a wheelchair) Psychiatric Findings - Problem List ([place] 1, 2,3) (1) Alcohol dependence with uncomplicated withdrawal Current Visit: Yes Status: Chronic (2) Uncomplicated sedative, hypnotic or anxiolytic withdrawal Current Visit: Yes Status: Acute (3) Opioid dependence with withdrawal Current Visit: Yes Status: Chronic (4) Benzodiazepine dependence Current Visit: Yes Status: Chronic (5) Nicotine dependence Current Visit: Yes Status: Acute Qualifiers: Nicotine product type: cigarettes Substance use status: in withdrawal Qualified Code(s): F17.213 - Nicotine dependence, cigarettes, with withdrawal (6) Substance induced mood disorder Current Visit: Yes Status: Acute (7) Insomnia Current Visit: Yes Status: Acute - Initial Treatment Plan Initial Treatment Plan: Psychoeducation. Sleep hygiene. Detoxification in progress. Support. Motivational rounds to promote sobriety. AA/NA meetings. Resume seroquel 150 mg po hs (reduced). Titration to 50 mg/day in next 24 hrs if no report of drowsiness/sedation. Side effects/benefits discussed with patient. Ms Hansen is in agreement with this plan of care. Hold medication if oversedation. Observation. Falls precautions.
[2018-11-13] MEDS: diazePAM 5 MG TABLET PO PRN (18:02)
[2018-11-13] MEDS ORDERED: MELATONIN 5 MG TABLETS PO PRN (22:00)
[2018-11-13] MEDS: QUEtiapine FUMARATE 50 MG TABLET PO SCH (22:18)
[2018-11-13] MEDS: THIAMINE HCL 100 MG TABLET (FP) PO SCH (22:18)
[2018-11-13] MEDS: levETIRAcetam 500 MG TABLET (FP) PO SCH (22:18)
[2018-11-14] MEDS: diazePAM 5 MG TABLET PO SCH ×3 (05:34→22:16)
[2018-11-14] MEDS ORDERED: METHADONE HCL 10 MG TABLET (FOR DETOX USE ONLY) PO SCH (10:00)
[2018-11-14] MEDS: levETIRAcetam 500 MG TABLET (FP) PO SCH ×2 (10:22→22:16)
[2018-11-14] MEDS: PRENATAL VITAMINS W/ FOLIC ACID TABLET (FP) PO SCH (10:22)
[2018-11-14] MEDS: NICOTINE 21 MG/24 HOURS TOPICAL PATCH TD SCH (10:22)
[2018-11-14] MEDS: ASPIRIN COATED 81 MG TABLET.EC PO SCH (10:22)
[2018-11-14] MEDS: EMTRICITABINE 200MG/TENOFOVIR 300MG PO SCH (10:23)
[2018-11-14] MEDS: diazePAM 5 MG TABLET PO PRN ×2 (10:25→18:07)
[2018-11-14 11:09] LABS: HEMATOCRIT 40.3 % (32.4-45.2); HEMOGLOBIN 12.9 GM/dL (10.7-15.3); MCH 28.7 pg (25.7-33.7); MCHC 32.1 g/dl (32.0-36.0); MEAN CELL VOLUME 89.6 fl (80-96); PLATELET COUNT 152 K/MM3 (134-434); WHITE BLOOD COUNT 7.4 K/mm3 (4.0-10.0)
[2018-11-14 11:30] LABS: ALBUMIN 3.9 g/dl (3.4-5.0); ALK PHOS 82 U/L (45-117); ANION GAP 10 MMOL/L (8-16); BILIRUBIN,TOTAL 0.7 mg/dL (0.2-1); BLOOD UREA NITROGEN 12 mg/dL (7-18); CALCIUM 8.5 mg/dL (8.5-10.1); CHLORIDE 99 mmol/L (98-107); CO2 28 mmol/L (21-32); CREATININE 0.7 mg/dL (0.55-1.3); GLUCOSE,RANDOM 86 mg/dL (74-106); POTASSIUM 3.6 mmol/L (3.5-5.1); SGOT/AST 68 U/L (15-37); SGPT/ALT 68 U/L (13-61); SODIUM 137 mmol/L (136-145); TOT PROT 7.2 g/dl (6.4-8.2)
--- NOTE | 2018-11-14 11:54 | PN ---
[facility] CIWA - CIWA Score Nausea/Vomitin-No Nausea/No Vomiting Muscle Tremors: 3 Anxiety: 3 Agitation: 3 Paroxysmal Sweats: 3 Orientation: 0-Oriented Tacttile Disturbances: 0-None Auditory Disturbances: 0-None Visual Disturbances: 0-None Headache: 0-None Present CIWA-Ar Total Score: 12 BHS COWS - Scale Resting Pulse: 2= DE 101-120 Sweatin=Flushed/Facial Moisture Restless Observation: 1= Difficult to Sit Still Pupil Size: 0= Normal to Room Light Bone or Joint Aches: 2= Severe Diffuse Aches Runny Nose/ Eye Tearin= Nasal Congestion GI Upset > 30mins: 0= None Tremor Observation of Outstretched Hands: 2= Slight Tremor Visible Yawning Observation: 2= >3x During Session Anxiety or Irritability: 2=Irritable/Anxious Goose Flesh Skin: 0=Smooth Skin COWS Score: 14 BHS Progress Note (SOAP) Subjective: agitation sweats shakes interrupted sleep body aches irritable Objective: 11/14/18 11:57 Vital Signs Temperature 97.9 F 11/14/18 10:00 Pulse Rate 104 H 11/14/18 10:00 Respiratory Rate 18 11/14/18 10:00 Blood Pressure 128/75 11/14/18 10:00 O2 Sat by Pulse Oximetry (%) Laboratory Tests 11/14/18 11/14/18 11/14/18 06:00 06:00 06:00 WBC 7.4 RBC 4.50 Hgb 12.9 Hct 40.3 MCV 89.6 MCH 28.7 MCHC 32.1 RDW 16.0 H Plt Count 152 MPV 9.0 Sodium 137 Potassium 3.6 Chloride 99 Carbon Dioxide 28 Anion Gap 10 BUN 12 Creatinine 0.7 Creat Clearance w eGFR > 60 Random Glucose 86 Calcium 8.5 Total Bilirubin 0.7 AST 68 H ALT 68 H Alkaline Phosphatase 82 Total Protein 7.2 Albumin 3.9 RPR Titer Nonreactive aaox3 ambulating no acute distress Assessment: 11/14/18 11:57 withdrawal sx Plan: continue detox increase fluids
[2018-11-14] MEDS: QUEtiapine FUMARATE 50 MG TABLET PO SCH (22:16)
[2018-11-14] MEDS: hydrOXYzine PAMOATE 25 MG CAPSULE (FP) PO PRN (22:16)
[2018-11-14] MEDS: THIAMINE HCL 100 MG TABLET (FP) PO SCH (22:17)
[2018-11-15] MEDS: diazePAM 5 MG TABLET PO PRN ×3 (05:45→19:52)
[2018-11-15] MEDS: levETIRAcetam 500 MG TABLET (FP) PO SCH ×2 (10:21→22:02)
[2018-11-15] MEDS: ASPIRIN COATED 81 MG TABLET.EC PO SCH (10:21)
[2018-11-15] MEDS: diazePAM 5 MG TABLET PO SCH ×2 (10:22→22:04)
[2018-11-15] MEDS: PRENATAL VITAMINS W/ FOLIC ACID TABLET (FP) PO SCH (10:22)
[2018-11-15] MEDS: METHADONE HCL 5 MG TABLET (FOR DETOX USE ONLY) PO SCH (10:22)
[2018-11-15] MEDS: NICOTINE 21 MG/24 HOURS TOPICAL PATCH TD SCH (10:23)
[2018-11-15] MEDS: EMTRICITABINE 200MG/TENOFOVIR 300MG PO SCH (10:23)
--- NOTE | 2018-11-15 11:18 | PN ---
[facility] CIWA - CIWA Score Nausea/Vomitin-No Nausea/No Vomiting Muscle Tremors: 3 Anxiety: 3 Agitation: 3 Paroxysmal Sweats: 2 Orientation: 0-Oriented Tacttile Disturbances: 0-None Auditory Disturbances: 0-None Visual Disturbances: 0-None Headache: 0-None Present CIWA-Ar Total Score: 11 BHS COWS - Scale Resting Pulse: 2= ME 101-120 Sweatin=Flushed/Facial Moisture Restless Observation: 1= Difficult to Sit Still Pupil Size: 0= Normal to Room Light Bone or Joint Aches: 2= Severe Diffuse Aches Runny Nose/ Eye Tearin= None GI Upset > 30mins: 0= None Tremor Observation of Outstretched Hands: 2= Slight Tremor Visible Yawning Observation: 1= 1-2x During Session Anxiety or Irritability: 2=Irritable/Anxious Goose Flesh Skin: 0=Smooth Skin COWS Score: 12 S Progress Note (SOAP) Subjective: agitation sweats mild shakes interrupted sleep body aches Objective: 11/15/18 11:17 Vital Signs Temperature 97.8 F 11/15/18 09:14 Pulse Rate 112 H 11/15/18 09:14 Respiratory Rate 18 11/15/18 09:14 Blood Pressure 117/80 11/15/18 09:14 O2 Sat by Pulse Oximetry (%) Laboratory Tests 11/14/18 11/14/18 11/14/18 06:00 06:00 06:00 WBC 7.4 RBC 4.50 Hgb 12.9 Hct 40.3 MCV 89.6 MCH 28.7 MCHC 32.1 RDW 16.0 H Plt Count 152 MPV 9.0 Sodium 137 Potassium 3.6 Chloride 99 Carbon Dioxide 28 Anion Gap 10 BUN 12 Creatinine 0.7 Creat Clearance w eGFR > 60 Random Glucose 86 Calcium 8.5 Total Bilirubin 0.7 AST 68 H ALT 68 H Alkaline Phosphatase 82 Total Protein 7.2 Albumin 3.9 RPR Titer Nonreactive labs noted aaox3 ambulating no acute distress Assessment: 11/15/18 11:18 withdrawal sx Plan: continue detox increase fluids
[2018-11-15] MEDS: THIAMINE HCL 100 MG TABLET (FP) PO SCH (22:04)
[2018-11-15] MEDS: QUEtiapine FUMARATE 50 MG TABLET PO SCH (22:04)
[2018-11-15] MEDS: hydrOXYzine PAMOATE 25 MG CAPSULE (FP) PO PRN (22:04)
[2018-11-16] MEDS: diazePAM 5 MG TABLET PO PRN (05:28)
[2018-11-16] MEDS: levETIRAcetam 500 MG TABLET (FP) PO SCH ×2 (10:22→22:08)
[2018-11-16] MEDS: NICOTINE 21 MG/24 HOURS TOPICAL PATCH TD SCH (10:23)
[2018-11-16] MEDS: diazePAM 5 MG TABLET PO SCH ×2 (10:23→22:08)
[2018-11-16] MEDS: METHADONE HCL 5 MG TABLET (FOR DETOX USE ONLY) PO SCH (10:23)
[2018-11-16] MEDS: ASPIRIN COATED 81 MG TABLET.EC PO SCH (10:23)
[2018-11-16] MEDS: EMTRICITABINE 200MG/TENOFOVIR 300MG PO SCH (10:24)
[2018-11-16] MEDS: PRENATAL VITAMINS W/ FOLIC ACID TABLET (FP) PO SCH (10:24)
--- NOTE | 2018-11-16 11:53 | PN ---
S Progress Note Note: PATIENT CONTINUES ON DETOX REGIMEN. C/O INTERRUPTED SLEEP AND NIGHT SWEATS. HAS HX OF OLD CVA WITH RIGHT HEMIPARESIS. Vital Signs Temperature 96.6 F L 11/16/18 09:32 Pulse Rate 78 11/16/18 09:32 Respiratory Rate 18 11/16/18 09:32 Blood Pressure 110/78 11/16/18 09:32 O2 Sat by Pulse Oximetry (%) Laboratory Tests 11/14/18 11/14/18 11/14/18 06:00 06:00 06:00 WBC 7.4 RBC 4.50 Hgb 12.9 Hct 40.3 MCV 89.6 MCH 28.7 MCHC 32.1 RDW 16.0 H Plt Count 152 MPV 9.0 Sodium 137 Potassium 3.6 Chloride 99 Carbon Dioxide 28 Anion Gap 10 BUN 12 Creatinine 0.7 Creat Clearance w eGFR > 60 Random Glucose 86 Calcium 8.5 Total Bilirubin 0.7 AST 68 H ALT 68 H Alkaline Phosphatase 82 Total Protein 7.2 Albumin 3.9 RPR Titer Nonreactive PE: ALERT AND ORIENTED X 3 SKIN WARM AND DRY EXT: NO EDEMA, RIGHT HEMIPARESIS IN NO ACUTE DISTRESS A/P WITHDRAWAL SX CONTINUE DETOX ENCOURAGE ORAL FLUIDS SUPPORTIVE CARE MAINTAINED CONTINUE TO MONITOR DETOX COMPLETE IN AM
[2018-11-16] MEDS: hydrOXYzine PAMOATE 25 MG CAPSULE (FP) PO PRN ×2 (14:57→22:08)
[2018-11-16] MEDS: QUEtiapine FUMARATE 50 MG TABLET PO SCH (22:08)
[2018-11-16] MEDS: THIAMINE HCL 100 MG TABLET (FP) PO SCH (22:08)
[2018-11-17] MEDS ORDERED: METHADONE HCL 10 MG TABLET (FOR DETOX USE ONLY) PO ONE (09:09)
--- NOTE | 2018-11-17 09:11 | DS ---
[facility] Detox Discharge Summary Admission Date: 11/13/18 Discharge Date: 11/17/18 - History Present History: Alcohol Dependence, Opioid Dependence, Sedative Dependence Additional Comments: 33 years old female admitted on 11/13/18 for alcohol benzo and opiate withdrawal stabilization feeling better today preferred to go home today that pick her up from detox facility change methadone dose from 10 mg to 5 mg plus routine detox regimen of 5 mg of valium patient is alert no acute distress denies suicidal denies homocidal no self destructive behavior aftercare Dr. John Paul Herman Pertinent Past History: patient agrees to follow up with neurologist for seizure and infectious disease specialist for HIV as well as mental health issue - Physical Exam Results Vital Signs: Vital Signs Temperature 97.3 F L 11/17/18 06:00 Pulse Rate 76 11/17/18 06:00 Respiratory Rate 18 11/17/18 06:00 Blood Pressure 108/58 L 11/17/18 06:00 O2 Sat by Pulse Oximetry (%) Pertinent Admission Physical Exam Findings: alcohol benzo opiate withdrawal sx Vital Signs Temperature 97.3 F L 11/17/18 06:00 Pulse Rate 76 11/17/18 06:00 Respiratory Rate 18 11/17/18 06:00 Blood Pressure 108/58 L 11/17/18 06:00 O2 Sat by Pulse Oximetry (%) Laboratory Last Values WBC 7.4 K/mm3 (4.0-10.0) 11/14/18 06:00 RBC 4.50 M/mm3 (3.60-5.2) 11/14/18 06:00 Hgb 12.9 GM/dL (10.7-15.3) 11/14/18 06:00 Hct 40.3 % (32.4-45.2) 11/14/18 06:00 MCV 89.6 fl (80-96) 11/14/18 06:00 MCH 28.7 pg (25.7-33.7) 11/14/18 06:00 MCHC 32.1 g/dl (32.0-36.0) 11/14/18 06:00 RDW 16.0 % (11.6-15.6) H 11/14/18 06:00 Plt Count 152 K/MM3 (134-434) 11/14/18 06:00 MPV 9.0 fl (7.5-11.1) 11/14/18 06:00 Sodium 137 mmol/L (136-145) 11/14/18 06:00 Potassium 3.6 mmol/L (3.5-5.1) 11/14/18 06:00 Chloride 99 mmol/L (98-107) 11/14/18 06:00 Carbon Dioxide 28 mmol/L (21-32) 11/14/18 06:00 Anion Gap 10 MMOL/L (8-16) 11/14/18 06:00 BUN 12 mg/dL (7-18) 11/14/18 06:00 Creatinine 0.7 mg/dL (0.55-1.3) 11/14/18 06:00 Creat Clearance w eGFR > 60 (>60) 11/14/18 06:00 Random Glucose 86 mg/dL (74-106) 11/14/18 06:00 Calcium 8.5 mg/dL (8.5-10.1) 11/14/18 06:00 Total Bilirubin 0.7 mg/dL (0.2-1) 11/14/18 06:00 AST 68 U/L (15-37) H 11/14/18 06:00 ALT 68 U/L (13-61) H 11/14/18 06:00 Alkaline Phosphatase 82 U/L (45-117) 11/14/18 06:00 Total Protein 7.2 g/dl (6.4-8.2) 11/14/18 06:00 Albumin 3.9 g/dl (3.4-5.0) 11/14/18 06:00 RPR Titer Nonreactive (NONREACTIVE) 11/14/18 06:00 lab noted patient acknowledged negative consequences of substance misuse - Treatment Hospital Course: Detox Protocol Followed, Detoxed Safely, Responded well, Discharged Condition Good, Rehab Referral Accepted Patient has Accepted a Rehab Referral to: Dr. John Paul Herman - Medication Discharge Medications: Ambulatory Orders Aspirin [Aspirin EC] 81 mg PO DAILY 04/28/14 Quetiapine Fumarate [Seroquel -] 50 mg PO DAILY #30 tablet 06/03/18 Quetiapine Fumarate [Seroquel -] 200 mg PO HS #30 tablet 06/03/18 Emtricitabine/Tenofovir [Truvada -] 1 tab PO DAILY 10 Days #10 tablet 11/16/18 levETIRAcetam [Keppra -] 1,000 mg PO BID 7 Days #28 tablet 11/16/18 - Diagnosis (1) HIV (human immunodeficiency virus infection) Current Visit: Yes Status: Chronic (2) Nicotine dependence Current Visit: Yes Status: Acute Qualifiers: Nicotine product type: cigarettes Substance use status: in withdrawal Qualified Code(s): F17.213 - Nicotine dependence, cigarettes, with withdrawal (3) Seizure disorder Current Visit: Yes Status: Chronic (4) Hepatitis C Current Visit: Yes Status: Chronic Qualifiers: Viral hepatitis chronicity: chronic Hepatic coma status: without hepatic coma Qualified Code(s): B18.2 - Chronic viral hepatitis C (5) Substance induced mood disorder Current Visit: Yes Status: Suspected (6) Alcohol dependence with uncomplicated withdrawal Current Visit: Yes Status: Acute (7) Opioid dependence with withdrawal Current Visit: Yes Status: Acute (8) Uncomplicated sedative, hypnotic or anxiolytic withdrawal Current Visit: Yes Status: Acute (9) Dependent for wheelchair mobility Current Visit: Yes Status: Chronic - AMA Did Patient Leave Against Medical Advice: No
[2018-11-17] MEDS: levETIRAcetam 500 MG TABLET (FP) PO SCH (09:35)
[2018-11-17] MEDS: ASPIRIN COATED 81 MG TABLET.EC PO SCH (09:35)
[2018-11-17] MEDS: PRENATAL VITAMINS W/ FOLIC ACID TABLET (FP) PO SCH (09:35)
[2018-11-17] MEDS: EMTRICITABINE 200MG/TENOFOVIR 300MG PO SCH (09:36)
[2018-11-17] MEDS: NICOTINE 21 MG/24 HOURS TOPICAL PATCH TD SCH (09:36)
[2018-11-17 09:42] VITALS: BP 121/68; PULSE 88; TEMP 98.1
[2018-11-17] MEDS ORDERED: METHADONE HCL 5 MG TABLET (FOR DETOX USE ONLY) PO ONE ×2 (09:45→10:00)
[2018-11-17] MEDS ORDERED: METHADONE HCL 5 MG TABLET (FOR DETOX USE ONLY) ONE (09:55)
[2018-11-17] MEDS ORDERED: METHADONE HCL 10 MG TABLET (FOR DETOX USE ONLY) PO SCH (10:00)
[2018-11-17] MEDS ORDERED: diazePAM 5 MG TABLET PO SCH (10:00)
[2018-11-18] MEDS ORDERED: METHADONE HCL 5 MG TABLET (FOR DETOX USE ONLY) PO SCH (06:00)
== END 2018-11-17 09:56 | disposition home or self-care (01) | DRG 773 ==
LOC: YASAS 08:34 → Y6N 12:09
PROC: HZ2ZZZZ Detoxification Services for Substance Abuse Treatment (ICD-10-PCS; principal; 2018-11-13)
DX: F11.23 Opioid dependence with withdrawal (principal); F10.230 Alcohol dependence with withdrawal, uncomplicated; F13.230 Sedative, hypnotic or anxiolytic dependence with withdrawal, uncomplicated; F17.213 Nicotine dependence, cigarettes, with withdrawal; F19.280 Other psychoactive substance dependence with psychoactive substance-induced anxiety disorder; F19.24 Other psychoactive substance dependence with psychoactive substance-induced mood disorder; F41.9 Anxiety disorder, unspecified; I69.351 Hemiplegia and hemiparesis following cerebral infarction affecting right dominant side; Z21 Asymptomatic human immunodeficiency virus [HIV] infection status; G47.00 Insomnia, unspecified; G40.802 Other epilepsy, not intractable, without status epilepticus; B18.2 Chronic viral hepatitis C; Z99.3 Dependence on wheelchair
CPT/HCPCS: 36415; 80053; 85027; 86593

== ENCOUNTER 2019-03-11 09:01 | Inpatient (IN) | payer OTHER ==
[2019-03-11 09:26] VITALS: BMI 26.6
--- NOTE | 2019-03-11 10:13 | HP ---
CIWA Score Nausea/Vomitin Muscle Tremors: 2 Anxiety: 2 Agitation: 2 Paroxysmal Sweats: 1-Minimal Palms Moist Orientation: 0-Oriented Tacttile Disturbances: 1-Very Mild Itch/Numbness Auditory Disturbances: 1-Very Mild Visual Disturbances: 0-None Headache: 2-Mild CIWA-Ar Total Score: 13 - Admission Criteria OASAS Guidelines: Admission for Medically Managed Detox: Requires at least one of the followin. CIWA greater than 12 2. Seizures within the past 24 hours 3. Delirium tremens within the past 24 hours 4. Hallucinations within the past 24 hours 5. Acute intervention needed for co occurring medical disorder 6. Acute intervention needed for co occurring psychiatric disorder 7. Severe withdrawal that cannot be handled at a lower level of care (continued vomiting, continued diarrhea, abnormal vital signs) requiring intravenous medication and/or fluids 8. Admission ROS S - HPI Chief Complaint: i need help to stop drinking alcohol,xanax,heroin abused,mmtp Allergies/Adverse Reactions: Allergies Allergy/AdvReac Type Severity Reaction Status Date / Time Fish Containing Products Allergy Severe Hives Verified 03/11/19 09:16 milk Allergy Severe Hives Verified 03/11/19 09:16 venom-honey bee Allergy Severe Difficulty Verified 03/11/19 09:16 [bee venom (honey bee)] Breathing chlordiazepoxide HCl AdvReac Severe Vomiting Verified 03/11/19 09:16 [From Librium] History of Present Illness: this 34 years old female with alcohol,xanax depndence,heroin abused,mmtp 50 mgs/ day,last medicated 02/15/19 seizure last 3 weeks ago,on keppra 1000 mgs po bid multiple admissions in detox,last detox 11/13/18 to 11/17/18 but keep relapsing hypertension,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 24 years,confined to wheel chair anxiety,insomnia frequent fall,last 3 weeks ago hepatitis c longest sobriety 1 year plan to go to out patient program and mmtp nicotine dependence 12 pack/day,requesting nicotine patch and gum Exam Limitations: No Limitations - Ebola screening Have you traveled outside of the country in the last 21 days: No Have you had contact with anyone from an Ebola affected area: No Do you have a fever: No - Review of Systems Constitutional: Loss of Appetite, Malaise, Night Sweats, Changes in sleep, Weakness EENT: reports: Nose Congestion Respiratory: reports: No Symptoms reported Cardiac: reports: No Symptoms Reported GI: reports: Nausea, Vomiting, Abdominal cramping : reports: No Symptoms Reported Musculoskeletal: reports: Back Pain, Muscle Pain, Other (weakness of right , right hemiplegia) Integumentary: reports: Dryness Neuro: reports: Headache, Tremors Endocrine: reports: No Symptoms Reported Hematology: reports: No Symptoms Reported Psychiatric: reports: No Sypmtoms Reported, Judgement Intact, Mood/Affect Appropiate, Orientated x3, Anxious, other (insomnia) Patient History - Patient Medical History Hx Anemia: No Hx Asthma: No Hx Chronic Obstructive Pulmonary Disease (COPD): No Hx Cancer: No Hx Cardiac Disorders: No Hx Congestive Heart Failure: No Hx Hypertension: No Hx Hypercholesterolemia: No Hx Pacemaker: No HX Cerebrovascular Accident: Yes (STROKE X 3; RIGHT-SIDED WEAKNESS, 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 inhaled Arsenic) Hx Seizures: Yes (drug related-last episode was a year ago) Hx Dementia: No Hx Diabetes: No Hx Gastrointestinal Disorders: No Hx Liver Disease: Yes (Hep C, untreated) Hx Genitourinary Disorders: No Hx Sexually Transmitted Disorders: No Hx Renal Disease (ESRD): No Hx Thyroid Disease: No Hx Human Immunodeficiency Virus (HIV): No (last 03/07 negative) Hx Hepatitis C: Yes (not treated) Hx Depression: No Hx Suicide Attempt: No Hx Bipolar Disorder: No Hx Schizophrenia: No Other Medical History: anxiety,insomnia,no suicidal,no homicidal - Patient Surgical History Past Surgical History: Yes Hx Neurologic Surgery: No Hx Cataract Extraction: No Hx Cardiac Surgery: Yes (SURGERY FOR PERICARDITIS IN 07/2013) Hx Lung Surgery: No Hx Breast Surgery: No Hx Breast Biopsy: No Hx Abdominal Surgery: Yes (EXP. LAPOROTOMY IN 07/2013 AT [facility] Hx Appendectomy: No Hx Cholecystectomy: No Hx Genitourinary Surgery: No Hx Section: No Hx Orthopedic Surgery: No Anesthesia Reaction: No - PPD History Previous Implant?: Yes Documented Results: Negative w/proof Implanted On Prior R Admission?: Yes Date: 11/15/18 Results: 0 mm PPD to be Administered?: No - Reproductive History Patient is a Female of Child Bearing Age (11 -55 yrs old): Yes Last Menstrual Period: 02/28/19 Patient : No - Smoking Cessation Smoking history: Current every day smoker Have you smoked in the past 12 months: Yes Aproximately how many cigarettes per day: 10 Cigars Per Day: 0 Hx Chewing Tobacco Use: No Initiated information on smoking cessation: Yes 'Breaking Loose' booklet given: 03/11/19 - Substance & Tx. History Hx Alcohol Use: Yes Hx Substance Use: Yes Substance Use Type: Alcohol, Heroin, Tranquilizers Hx Substance Use Treatment: Yes ([facility] 11/13/18 to 11/17/18) - Substances abused Heroin Substance route: Inhalation Frequency: Daily Amount used: 10 bags Age of first use: 24 Date of last use: 03/11/19 Alprazolam (Xanax) Substance route: Oral Frequency: Daily Amount used: 10mg Age of first use: 15 Date of last use: 03/11/19 Alcohol Substance route: Oral Frequency: Daily Amount used: 2 Liter of Vodka, Age of first use: 1 Date of last use: 03/11/19 Family Disease History - Family Disease History Family Disease History: CA: Mother (, allcoholic; uterine/?cervical; dec ), Other: Father (no contact), Mother, Brother (two - living - healthy), Sister (one -liver; two living healthy), Son (age 16 - healthy), Daughter ( age 18 - healthy) Admission Physical Exam S - Vital Signs Vital Signs: Vital Signs - 24 hr 03/11/19 03/11/19 09:20 09:36 Temperature 98 F 98 F Pulse Rate 82 82 Respiratory 18 18 Rate Blood Pressure 122/71 122/71 - Physical General Appearance: Yes: Moderate Distress, Tremorous, Irritable, Sweating, Anxious HEENTM: Yes: Normal ENT Inspection, SRINIVASA, Pharynx Normal Respiratory: Yes: Lungs Clear, Normal Breath Sounds, No Respiratory Distress Neck: Yes: Within Normal Limits, Supple, Trachea in good position Breast: Yes: Breast Exam Deferred Cardiology: Yes: Within Normal Limits, Regular Rhythm, Regular Rate, S1, S2, Surgical Scar Abdominal: Yes: Within Normal Limits, Normal Bowel Sounds, Non Tender, Flat, Soft, Surgical Scar Genitourinary: Yes: Within Normal Limits Back: Yes: Muscle Spasm Musculoskeletal: Yes: Back pain, Muscle Pain Extremities: Yes: Tremors, Other (right hemiplegia from previous cva) Neurological: Yes: Fully Oriented (right hemiplegia from previous cva confined to wheelchair), Alert Integumentary: Yes: Dry Lymphatic: Yes: Within Normal Limits - Diagnostic (1) Alcohol dependence with uncomplicated withdrawal Current Visit: Yes Status: Acute (2) Alcohol dependence with uncomplicated intoxication Current Visit: No Status: Acute (3) Methadone maintenance therapy patient Current Visit: No Status: Acute (4) CVA, old, hemiparesis Current Visit: No Status: Acute (5) Wheelchair confinement status Current Visit: No Status: Acute (6) History of pericarditis Current Visit: No Status: Acute (7) History of abdominal surgery Current Visit: No Status: Acute Cleared for Admission S - Detox or Rehab [facility] Level of Care: Medically Managed Detox Regimen/Protocol: Valium (patient would like to go back to mmtp,will give build up methadone) Breathalyzer - Breathalyzer Breathalyzer: 0.271 POC Urine test - Test device test lot number: [id number] Expiration date: 07/19/20 - Control test control: Yes - Result Urine Test Results: Negative - NO line present Urine Drug Screen - Test Device Lot number: [id number] Expiration date: 10/18/20 - Control Is test valid?: Yes - Results Drug screen NEGATIVE: No Urine drug screen results: MET-Methamphetamine, MOP-Opiates, OXY-Oxycodone, MTD- Methadone Inpatient Rehab Admission - Rehab Decision to Admit Inpatient rehab admission?: No
[2019-03-11] MEDS ORDERED: MAG HYDROX/AL HYDROX/SIMETH 30 ML UNIT-DOSE CUP PO PRN (10:33)
[2019-03-11] MEDS ORDERED: IBUPROFEN 400 MG TABLET (FP) PO PRN (10:33)
[2019-03-11] MEDS ORDERED: hydrOXYzine PAMOATE 25 MG CAPSULE (FP) PO PRN (10:33)
[2019-03-11] MEDS ORDERED: METHOCARBAMOL 500 MG TABLET PO PRN (10:33)
[2019-03-11] MEDS ORDERED: NICOTINE POLACRILEX 2 MG GUM BUC PRN (10:33)
[2019-03-11] MEDS ORDERED: MAGNESIUM CITRATE 300 ML BOTTLE PO PRN (10:33)
[2019-03-11] MEDS ORDERED: MELATONIN 5 MG TABLETS PO PRN (10:33)
[2019-03-11] MEDS ORDERED: MAGNESIUM HYDROX 2400MG/30ML ORAL SUSPENSION 30 ML CUP PO PRN (10:33)
[2019-03-11] MEDS ORDERED: ACETAMINOPHEN 325 MG TABLET (FP) PO PRN ×2 (10:33)
[2019-03-11] MEDS ORDERED: MENTHOL/PHENOL 1 EACH UD MM PRN (10:33)
[2019-03-11] MEDS ORDERED: BISMUTH SUBSALICYLATE 262 MG/15 ML BTL PO PRN (10:33)
[2019-03-11] MEDS ORDERED: METHADONE HCL 10 MG TABLET PO ONE (10:40)
[2019-03-11] MEDS: diazePAM 5 MG TABLET PO PRN ×2 (11:47→16:43)
[2019-03-11] MEDS: NICOTINE 21 MG/24 HOURS TOPICAL PATCH TD SCH (11:50)
[2019-03-11] MEDS: diazePAM 5 MG TABLET PO SCH ×2 (13:40→21:09)
--- NOTE | 2019-03-11 15:05 | CONSULT ---
[facility] Psychiatric Consult - Data Date of interview: 03/11/19 Admission source: [facility] Identifying data: This is one of multiple admissions to [facility] for this 34 y/ o female self referred for detoxification treatment (heroin, alcohol, xanax). Interviewed on . Patient is , a mother of two, domiciled, disabled (s/p CVA) and supported on SSI benefits. Substance Abuse History: Confirmed by the patient in this interview. Details in current [facility] report : Smoking history: Current every day smoker. Have you smoked in the past 12 months: Yes. Aproximately how many cigarettes per day: 10. Cigars Per Day: 0. Hx Chewing Tobacco Use: No. Initiated information on smoking cessation: Yes. 'Breaking Loose' booklet given: 03/11/19. - Substance & Tx. History. Hx Alcohol Use: Yes. Hx Substance Use: Yes. Substance Use Type : Alcohol, Heroin, Tranquilizers. Hx Substance Use Treatment: Yes ([facility] to 11/17/18). - Substances abused. Heroin. Substance route: Inhalation. Frequency: Daily. Amount used: 10 bags. Age of first use: 24. Date of last use: 03/11/19. Alprazolam (Xanax). Substance route: Oral. Frequency: Daily. Amount used: 10mg. Age of first use: 15. Date of last use: 03/11/19. Alcohol. Substance route: Oral. Frequency: Daily. Amount used: 2 Liter of Vodka,. Age of first use: 1. Date of last use: 03/11/19 Medical History: Remarkable for a history of seizure disorder (post-stroke), three episodes of cerebrovascular accident (CVA with right-sided paresis), hepatitis C, past surgery for pericarditis and exploratory laparotomy (at [facility] in 2012). Psychiatric History: No reported history of psychiatric hospitalizations. Patient endorses the diagnosis of Bipolar Disorder. She sees a psychiatrist at a mental health clinic in [facility]. Medicated with seroquel 50 mg/day + 300 mg/hs care. Currently on methadone maintenance (50 mg/day). Ms Hansen denies history of suicide attempts. Physical/Sexual Abuse/Trauma History: Stressor : serious physical disability. Additional Comment: Urine drug screen results: MET-Methamphetamine, MOP-Opiates , OXY-Oxycodone, MTD-Methadone. Noted. Mental Status Exam - Mental Status Exam Alert and Oriented to: Time, Place, Person Cognitive Function: Good Patient Appearance: Well Groomed Mood: Nervous, Withdrawn, Anxious Affect: Appropriate, Mood Congruent, Constricted Patient Behavior: Fatigued, Appropriate, Cooperative Speech Pattern: Clear Voice Loudness: Normal Thought Process: Intact, Goal Oriented Thought Disorder: Not Present Hallucinations: Denies Suicidal Ideation: Denies Homicidal Ideation: Denies Insight/Judgement: Poor Sleep: Poorly, Difficulty falling asleep Appetite: Fair Gait/Station: Spastic (wheelchair-bound) Psychiatric Findings - Problem List ([place] 1, 2,3) (1) Alcohol dependence with uncomplicated withdrawal Current Visit: Yes Status: Acute (2) Uncomplicated sedative, hypnotic or anxiolytic withdrawal Current Visit: Yes Status: Acute (3) Opioid dependence on agonist therapy Current Visit: Yes Status: Chronic (4) Nicotine dependence Current Visit: Yes Status: Chronic (5) Substance induced mood disorder Current Visit: Yes Status: Chronic (6) Insomnia Current Visit: Yes Status: Chronic - Initial Treatment Plan Initial Treatment Plan: Psychoeducaton. Sleep hygiene. Detoxification. Support. AA/NA meetings. Groups. will resume seroquel at reduced doses : 50 mg po am + 150 mg po hs. Side effects/benefits are discussed with the patient. Ms Hansen is in agreement with this plan of care. Consent (verbal) given to Falls precautions. Observation.
[2019-03-11 15:06] LABS: HEMATOCRIT 43.1 % (32.4-45.2); HEMOGLOBIN 14.4 GM/dL (10.7-15.3); MCH 32.3 pg (25.7-33.7); MCHC 33.4 g/dl (32.0-36.0); MEAN CELL VOLUME 96.6 fl (80-96); MEAN PLT VOLUME 7.9 fl (7.5-11.1); PLATELET COUNT 142 K/MM3 (134-434); RBC 4.46 M/mm3 (3.60-5.2); RDW 17.9 % (11.6-15.6)
[2019-03-11 15:14] LABS: ALBUMIN 4.8 g/dl (3.4-5.0); ALK PHOS 89 U/L (45-117); ANION GAP 15 MMOL/L (8-16); BILIRUBIN,TOTAL 0.6 mg/dL (0.2-1); BLOOD UREA NITROGEN 9 mg/dL (7-18); CALCIUM 9.3 mg/dL (8.5-10.1); CHLORIDE 94 mmol/L (98-107); CO2 26 mmol/L (21-32); CREATININE 0.7 mg/dL (0.55-1.3); GLUCOSE,RANDOM 124 mg/dL (74-106); POTASSIUM 3.7 mmol/L (3.5-5.1); SGOT/AST 178 U/L (15-37); SGPT/ALT 112 U/L (13-61); SODIUM 136 mmol/L (136-145); TOT PROT 8.3 g/dl (6.4-8.2)
[2019-03-11 15:17] LABS: WHITE BLOOD COUNT 2.8 K/mm3 (4.0-10.0)
[2019-03-11] MEDS ORDERED: ONDANSETRON *ODT* 4 MG TABLET SL PRN (18:41)
--- NOTE | 2019-03-11 18:42 | PN ---
[facility] Progress Note Note: Vital Signs Temperature 98.8 F 03/11/19 17:21 Pulse Rate 64 03/11/19 17:21 Respiratory Rate 18 03/11/19 17:21 Blood Pressure 117/71 03/11/19 17:21 O2 Sat by Pulse Oximetry (%) Laboratory Last Values WBC 2.8 K/mm3 (4.0-10.0) L 03/11/19 10:45 RBC 4.46 M/mm3 (3.60-5.2) 03/11/19 10:45 Hgb 14.4 GM/dL (10.7-15.3) 03/11/19 10:45 Hct 43.1 % (32.4-45.2) 03/11/19 10:45 MCV 96.6 fl (80-96) H 03/11/19 10:45 MCH 32.3 pg (25.7-33.7) D 03/11/19 10:45 MCHC 33.4 g/dl (32.0-36.0) 03/11/19 10:45 RDW 17.9 % (11.6-15.6) H 03/11/19 10:45 Plt Count 142 K/MM3 (134-434) 03/11/19 10:45 MPV 7.9 fl (7.5-11.1) D 03/11/19 10:45 Sodium 136 mmol/L (136-145) 03/11/19 10:45 Potassium 3.7 mmol/L (3.5-5.1) 03/11/19 10:45 Chloride 94 mmol/L (98-107) L 03/11/19 10:45 Carbon Dioxide 26 mmol/L (21-32) 03/11/19 10:45 Anion Gap 15 MMOL/L (8-16) 03/11/19 10:45 BUN 9 mg/dL (7-18) 03/11/19 10:45 Creatinine 0.7 mg/dL (0.55-1.3) 03/11/19 10:45 Creat Clearance w eGFR 95.23 (>60) 03/11/19 10:45 Random Glucose 124 mg/dL (74-106) H 03/11/19 10:45 Calcium 9.3 mg/dL (8.5-10.1) 03/11/19 10:45 Total Bilirubin 0.6 mg/dL (0.2-1) 03/11/19 10:45 AST 178 U/L (15-37) H 03/11/19 10:45 ALT 112 U/L (13-61) H 03/11/19 10:45 Alkaline Phosphatase 89 U/L (45-117) 03/11/19 10:45 Total Protein 8.3 g/dl (6.4-8.2) H 03/11/19 10:45 Albumin 4.8 g/dl (3.4-5.0) 03/11/19 10:45 c/o of nausea vomiting zofran prn ordered labs noted repeat cbc and cmp d/c acetaminophen
[2019-03-11] MEDS: THIAMINE HCL 100 MG TABLET (FP) PO SCH (21:09)
[2019-03-11] MEDS: levETIRAcetam 500 MG TABLET (FP) PO SCH (21:09)
[2019-03-11] MEDS: QUEtiapine FUMARATE 50 MG TABLET PO SCH (21:09)
[2019-03-12] MEDS: diazePAM 5 MG TABLET PO SCH ×3 (05:33→22:16)
[2019-03-12] MEDS ORDERED: METHADONE HCL 10 MG TABLET PO ONE (06:00)
[2019-03-12] MEDS ORDERED: EMTRICITABINE 200MG/TENOFOVIR 300MG PO SCH (10:00)
[2019-03-12] MEDS ORDERED: PRENATAL VITAMINS W/ FOLIC ACID TABLET (FP) PO SCH (10:00)
[2019-03-12] MEDS: QUEtiapine FUMARATE 50 MG TABLET PO SCH ×2 (10:38→22:16)
[2019-03-12] MEDS: levETIRAcetam 500 MG TABLET (FP) PO SCH ×2 (10:38→22:14)
[2019-03-12] MEDS: ASPIRIN COATED 81 MG TABLET.EC PO SCH (10:39)
[2019-03-12] MEDS: NICOTINE 21 MG/24 HOURS TOPICAL PATCH TD SCH (10:39)
[2019-03-12 12:19] LABS: EOS % 4.8 % (0-4.5); HEMATOCRIT 38.6 % (32.4-45.2); HEMOGLOBIN 12.8 GM/dL (10.7-15.3); MCH 31.8 pg (25.7-33.7); MCHC 33.1 g/dl (32.0-36.0); MEAN CELL VOLUME 95.9 fl (80-96); MEAN PLT VOLUME 8.2 fl (7.5-11.1); MONO % 8.4 % (3.8-10.2); NEUT % 46.8 % (42.8-82.8); RBC 4.02 M/mm3 (3.60-5.2); RDW 17.6 % (11.6-15.6); WHITE BLOOD COUNT 2.8 K/mm3 (4.0-10.0)
--- NOTE | 2019-03-12 12:22 | PN ---
S CIWA - CIWA Score Nausea/Vomitin-Mild Nausea/No Vomiting Muscle Tremors: 3 Anxiety: 3 Agitation: 2 Paroxysmal Sweats: 2 Orientation: 0-Oriented Tacttile Disturbances: 0-None Auditory Disturbances: 0-None Visual Disturbances: 0-None Headache: 0-None Present CIWA-Ar Total Score: 11 S Progress Note (SOAP) Subjective: stomach ache sweats interrupted sleep body aches muscle cramp Objective: 03/12/19 12:21 Vital Signs Temperature 98.3 F 03/12/19 10:43 Pulse Rate 62 03/12/19 12:00 Respiratory Rate 18 03/12/19 12:00 Blood Pressure 122/85 03/12/19 10:43 O2 Sat by Pulse Oximetry (%) Laboratory Tests 03/11/19 03/11/19 03/11/19 10:45 10:45 10:45 WBC 2.8 L RBC 4.46 Hgb 14.4 Hct 43.1 MCV 96.6 H MCH 32.3 D MCHC 33.4 RDW 17.9 H Plt Count 142 MPV 7.9 D Absolute Neuts (auto) Neutrophils % Lymphocytes % Monocytes % Eosinophils % Basophils % Nucleated RBC % Sodium 136 Potassium 3.7 Chloride 94 L Carbon Dioxide 26 Anion Gap 15 BUN 9 Creatinine 0.7 Creat Clearance w eGFR 95.23 Random Glucose 124 H Calcium 9.3 Total Bilirubin 0.6 AST 178 H ALT 112 H Alkaline Phosphatase 89 Total Protein 8.3 H Albumin 4.8 RPR Titer Nonreactive 03/12/19 07:30 WBC 2.8 L RBC 4.02 Hgb 12.8 Hct 38.6 MCV 95.9 MCH 31.8 MCHC 33.1 RDW 17.6 H Plt Count MPV Absolute Neuts (auto) 1.3 L Neutrophils % 46.8 D Lymphocytes % 38.0 D Monocytes % 8.4 Eosinophils % 4.8 H Basophils % 2.0 Nucleated RBC % 0 Sodium Potassium Chloride Carbon Dioxide Anion Gap BUN Creatinine Creat Clearance w eGFR Random Glucose Calcium Total Bilirubin AST ALT Alkaline Phosphatase Total Protein Albumin RPR Titer repeated labs pending aaox3 ambulating no acute distress Assessment: 03/12/19 12:22 withdrawal sx Plan: continue detox increase fluids pending labs lidocaine patch baclofen
[2019-03-12 12:23] LABS: ALBUMIN 3.9 g/dl (3.4-5.0); ALK PHOS 93 U/L (45-117); ANION GAP 8 MMOL/L (8-16); BLOOD UREA NITROGEN 10 mg/dL (7-18); CHLORIDE 97 mmol/L (98-107); CO2 33 mmol/L (21-32); CREATININE 0.7 mg/dL (0.55-1.3); GLUCOSE,RANDOM 106 mg/dL (74-106); POTASSIUM 3.4 mmol/L (3.5-5.1); SGOT/AST 102 U/L (15-37); SGPT/ALT 80 U/L (13-61); SODIUM 137 mmol/L (136-145); TOT PROT 6.8 g/dl (6.4-8.2)
[2019-03-12] MEDS ORDERED: LIDOCAINE 5% TOPICAL PATCH TP ONE (12:23)
[2019-03-12 12:48] LABS: CALCIUM 9.7 mg/dL (8.5-10.1)
[2019-03-12 12:58] LABS: PLATELET ESTIMATE ADEQUATE
[2019-03-12 13:00] LABS: PLATELET COUNT 161 K/MM3 (134-434)
[2019-03-12] MEDS: BACLOFEN 10 MG TABLET (FP) PO SCH ×2 (13:07→22:15)
[2019-03-12] MEDS: diazePAM 5 MG TABLET PO PRN (17:41)
[2019-03-12] MEDS ORDERED: LIDOCAINE PATCH REMOVAL MC SCH (22:00)
[2019-03-12] MEDS: THIAMINE HCL 100 MG TABLET (FP) PO SCH (22:16)
[2019-03-13] MEDS: BACLOFEN 10 MG TABLET (FP) PO SCH (05:49)
[2019-03-13] MEDS ORDERED: METHADONE HCL 40 MG DISPERSABLE TABLET PO ONE (06:00)
[2019-03-13] MEDS ORDERED: diazePAM 5 MG TABLET PO ONE (06:00)
[2019-03-13] MEDS: ASPIRIN COATED 81 MG TABLET.EC PO SCH (09:04)
[2019-03-13] MEDS: QUEtiapine FUMARATE 50 MG TABLET PO SCH (09:04)
[2019-03-13] MEDS: levETIRAcetam 500 MG TABLET (FP) PO SCH (09:04)
[2019-03-13 09:17] VITALS: BP 121/85; PULSE 115; TEMP 98.6
--- NOTE | 2019-03-13 09:42 | DS ---
[facility] Detox Discharge Summary Admission Date: 03/11/19 Discharge Date: 03/13/19 - History Present History: Alcohol Dependence, MMTP - Physical Exam Results Vital Signs: Vital Signs Temperature 98.6 F 03/13/19 09:16 Pulse Rate 115 H 03/13/19 09:16 Respiratory Rate 16 03/13/19 09:16 Blood Pressure 121/85 03/13/19 09:16 O2 Sat by Pulse Oximetry (%) - Treatment Hospital Course: Detox Protocol Followed, Detoxed Safely, Responded well, Discharged Condition Good, Rehab Referral Accepted - Medication Discharge Medications: Ambulatory Orders Aspirin [Aspirin EC] 81 mg PO DAILY 04/28/14 Quetiapine Fumarate [Seroquel -] 50 mg PO DAILY #30 tablet 06/03/18 Quetiapine Fumarate [Seroquel -] 200 mg PO HS #30 tablet 06/03/18 Emtricitabine/Tenofovir [Truvada -] 1 tab PO DAILY 10 Days #10 tablet 11/16/18 levETIRAcetam [Keppra -] 1,000 mg PO BID 7 Days #28 tablet 11/16/18 - Diagnosis (1) Alcohol dependence with uncomplicated intoxication Status: Chronic (2) CVA, old, hemiparesis Status: Chronic (3) History of abdominal surgery Status: Acute (4) Methadone maintenance therapy patient Status: Chronic (5) Nicotine dependence Status: Chronic Qualifiers: Nicotine product type: cigarettes Substance use status: uncomplicated Qualified Code(s): F17.210 - Nicotine dependence, cigarettes, uncomplicated (6) Wheelchair confinement status Status: Chronic (7) Anxiety Status: Chronic (8) Drug-induced mood disorder Status: Chronic (9) HIV (human immunodeficiency virus infection) Status: Chronic Qualifiers: HIV symptom status: unspecified Qualified Code(s): B20 - Human immunodeficiency virus [HIV] disease (10) Hemiparesis affecting right side as late effect of cerebrovascular accident Status: Chronic (11) Hepatitis C Status: Chronic Qualifiers: Viral hepatitis chronicity: chronic Hepatic coma status: without hepatic coma Qualified Code(s): B18.2 - Chronic viral hepatitis C (12) Insomnia Status: Chronic (13) Nicotine dependence Status: Chronic Qualifiers: Nicotine product type: cigarettes Substance use status: uncomplicated Qualified Code(s): F17.210 - Nicotine dependence, cigarettes, uncomplicated (14) Seizure disorder Status: Chronic (15) Substance induced mood disorder Status: Chronic (16) Substance-induced anxiety disorder Status: Suspected - AMA Did Patient Leave Against Medical Advice: No (pt declined rehab; referred to MMTP)
[2019-03-13] MEDS ORDERED: LIDOCAINE 5% TOPICAL PATCH TP SCH (10:00)
[2019-03-14] MEDS ORDERED: METHADONE HCL 10 MG TABLET PO SCH (06:00)
[2019-03-14] MEDS ORDERED: METHADONE 40 MG, METHADONE 10 MG PO SCH ×2 (06:00)
== END 2019-03-13 09:00 | disposition home or self-care (01) | DRG 773 ==
LOC: YASAS 09:01 → Y6N 10:25
PROVIDERS: ADMIT Surgery; ATTEND Surgery
PROC: HZ2ZZZZ Detoxification Services for Substance Abuse Treatment (ICD-10-PCS; principal; 2019-03-11)
DX: F10.230 Alcohol dependence with withdrawal, uncomplicated (principal); F10.220 Alcohol dependence with intoxication, uncomplicated; F11.20 Opioid dependence, uncomplicated; F13.230 Sedative, hypnotic or anxiolytic dependence with withdrawal, uncomplicated; F17.213 Nicotine dependence, cigarettes, with withdrawal; F41.9 Anxiety disorder, unspecified; F19.280 Other psychoactive substance dependence with psychoactive substance-induced anxiety disorder; G47.00 Insomnia, unspecified; B18.2 Chronic viral hepatitis C; G40.909 Epilepsy, unspecified, not intractable, without status epilepticus; I69.351 Hemiplegia and hemiparesis following cerebral infarction affecting right dominant side; Z99.3 Dependence on wheelchair; Z91.013 Allergy to seafood; Z91.038 Other insect allergy status; Z88.8 Allergy status to other drugs, medicaments and biological substances
CPT/HCPCS: 36415; 80053; 85025; 85027; 86593; J0475; Q0162